=== PATIENT | female | born 1940 | race Caucasian/White ===

== ENCOUNTER 2019-07-25 09:49 | Emergency (ER) | payer MEDICARE, SELFPAY ==
[2019-07-25] VITALS (25 sets, daily range): BP systolic 160–185; BP diastolic 68–99; PULSE 60–74; RESP 9–22; TEMP 36.5; O2SAT 96–100
--- NOTE | ~2019-07-25 | CT_ITS ---
EXAMINATION: CT chest wo con EXAM DATE: 07/25/2019 13:55 INDICATION: Lung mass. TECHNIQUE: Spiral CT of the chest without contrast. Axial, coronal and sagittal images were reviewe d. Coronal maximum intensity pixel images of chest reviewed. The dose-length product (DLP) for this examination was 169.19 mGy-cm. The exposure was tailored according to patient size (auto mA exposur e control), and iterative reconstruction (ASIR) was used as additional dose reduction technique. Comp bakari is made to prior examination from 02/13/2010. FINDINGS: There is lobular masslike opacity in the right lower lobe measuring 2.1 cm, possible prima ry lung cancer. There are scattered other smaller nodules, mostly calcified, consistent with prior gr anulomatous process. There is biapical scarring. There is mild emphysema and hyperinflation. Prior st udy in 2009 had a nodule which decreased in size and now has calcification, turned into a granuloma. It is possible that the right lower lobe mass described above could be chronic infectious or inflamma tory process of same etiology that cause the other pulmonary nodules. Differential diagnosis does inc lude pneumonia, cancer, post infectious residua, inflammatory process, cryptogenic organizing pneumon ia. There are no pleural or pericardial effusions. Tracheobronchial tree is patent. There is no media stinal, hilar or axillary lymphadenopathy. There is no pneumothorax. Heart normal in size. Ther e is mild coronary arterial calcification, arterial sclerosis. Upper abdomen is unremarkable. Ther e is mild to moderate thoracic spondylosis without osteoblastic or osteolytic lesions identified. IMPRESSION: 1. Right lower lobe 2.1 cm lobular nodular density, differential diagnosis including cancer, infecti on, early postinfectious granulation, cryptogenic organizing pneumonia, other inflammatory process. 2. Scattered lung granulomas, including evolution of a previously seen opacity similar to suspicious finding on today's exam to more typical appearing granuloma. 3. Mild emphysema and hyperinflation. RECOMMENDATION: Clinical correlation. Although the nodule described above could be infectious/inflamm atory etiology, it is large enough to consider percutaneous biopsy. Alternatively, could obtain a PET CT, or a one-month follow-up low-dose chest CT if patient has no lung cancer risk factors or infecti on clinically. Reviewed, dictated and finalized at location B. IMPRESSION: 1. Right lower lobe 2.1 cm lobular nodular density, differential diagnosis inc luding cancer, infection, early postinfectious granulation, cryptogenic organiz ing pneumonia, other inflammatory process. 2. Scattered lung granulomas, including evolution of a previously seen opacity similar to suspicious finding on today's exam to more typical appearing granul ferny. 3. Mild emphysema and hyperinflation. RECOMMENDATION: Clinical correlation. Although the nodule described above could be infectious/inflammatory etiology, it is large enough to consider percutaneo us biopsy. Alternatively, could obtain a PET CT, or a one-month follow-up low-d ose chest CT if patient has no lung cancer risk factors or infection clinically .
--- NOTE | ~2019-07-25 | CT_ITS ---
EXAMINATION: CT abdomen pelvis w con DATE: 07/25/2019 12:35 INDICATION: Diarrhea. Weight loss. TECHNIQUE: Computed tomography (CT) of the abdomen and pelvis was performed with 100 mL Omnipaque 350 intravenous contrast. Automated exposure control and iterative reconstruction technique were employe d. The dose-length product was 527.78 mGy-cm. COMPARISON: Chest CT 03/12/2010, pelvis ultrasound 01/21/16 FINDINGS: The visualized portions of the lung bases demonstrate mild atelectasis. Partially visualize d is a 3.2 x 2.2 cm mass in right lower lobe. There is mild atelectasis bilaterally. No pleural effus ion. The heart size is normal. No pericardial effusion. The liver, spleen, gallbladder, pancreas, and adrenal glands are normal. There are cysts in the kidneys measuring up to 2.2 cm on the left. There is a filter in the infrarenal inferior vena cava. There is a left inguinal hernia containing fat. The re are no dilated loops of bowel. The appendix is normal. There are no pathologically enlarged lymph nodes. There is no free intraperitoneal fluid. There is a small umbilical hernia containing fat. The endometrial complex is thickened to 18 mm. There are old healed right rib fractures. There is moderat e lumbar spondylosis. There is a benign bone island in L3 vertebral body. IMPRESSION: 1. Partially visualized 3.2 x 2.2 cm mass in right lung lower lobe, which may be infection or maligna ncy. Chest CT is recommended. 2. Thickened endometrial complex, which may be endometrial hyperplasia, polyp, or carcinoma. Biopsy i s recommended. Reviewed, dictated and finalized at location A. IMPRESSION: 1. Partially visualized 3.2 x 2.2 cm mass in right lung lower lobe, which may b e infection or malignancy. Chest CT is recommended. 2. Thickened endometrial complex, which may be endometrial hyperplasia, polyp, or carcinoma. Biopsy is recommended.
--- NOTE | 2019-07-25 09:55 | ED.NAVMDI ---
HPI - Nausea/Vomiting/Diarrhea General Chief complaint: Nausea/Vomiting/Diarrhea Stated complaint: N/V X3 WEEKS, LOST 20 POUNDS Time Seen by Provider: 07/25/19 09:51 History of Present Illness HPI Narrative: Nausea and vomiting for the past month. Only able to keep down a few sips of water at a time, and 1 egg per day. She says that she was having diarrhea until recently. She reports that she frequently has blood in her stools. She was previously on eliquis, but stopped due to the bleeding. She called her PCP today and was prescribed zofran. She did not take the zofran prior to coming in. She seems to be a somewhat unreliable historian. Related Data Home Medications Medication Instructions Recorded Confirmed rivaroxaban [Xarelto] mg 07/25/19 Allergies Allergy/AdvReac Type Severity Reaction Status Date / Time No Known Allergies Allergy Unverified 09/04/15 15:26 Review of Systems Review of Systems: All systems reviewed & are unremarkable except as noted in HPI and below Constitutional: Constitutional: Reports fatigue, Denies fever(s) and Reports weakness ENT: Denies sore throat Cardiovascular: Cardiovascular: Denies chest pain Respiratory: Respiratory: Denies dyspnea Gastrointestinal: Gastrointestinal: Denies abdominal pain, Reports diarrhea, Reports nausea and Reports vomiting Genitourinary: Genitourinary: Reports no additional female genitourinary complaints, Denies hematuria, Denies dysuria and Denies flank pain Musculoskeletal: Musculoskeletal: Denies back pain Neurologic: Reports dizziness, Denies focal weakness and Reports weakness PMFSH Past Medical History Medical History (Updated 07/25/19 @ 14:55 by Clifton Suazo MD) DVT (deep venous thrombosis) Social History Social History (Updated 07/25/19 @ 14:49 by Clifton Suazo MD) Smoking status: Never smoker Exam Const: General: healthy appearing, no acute distress and alert Orientation/consciousness: patient oriented x3 HENMT: Mouth: Yes dry mucous membranes Resp: Effort & Inspection: normal respiratory effort Auscultation: clear to auscultation bilaterally Cardio: Rate: regular rate Rhythm: regular rhythm GI: GI Palp: Yes Soft to palpation and No Tenderness to palpation present (GI) Skin: General skin exam: normal color and no pallor Rashes: rash noted Wounds: wound noted Neuro: General: patient oriented x3, moves all extremities, no focal motor deficits and CN's II-XI intact bilaterally Cranial nerves: Yes Nystagmus not present Speech: normal speech Extrem: General: normal to inspection and no edema Psych: Affect: Anxious affect present Course Course Emergency Course: Patient dicussed with Dr. Sanders. She reports the the patient is somewhat eccentric and believes that this may be the only chance to evaluate her as she only rarely comes to the office and is unlikely to get outpatient testing done. She would appreciate imaging due to the 20 pound weight loss over the past [address] of chest and abdomen done showing lesions of the uterus and lungs that will need follow-up. Dr. Sanders will arrange this. Patient informed Vital Signs Vital signs: Vital Signs Temperature 36.5 C 07/25/19 09:54 Pulse Rate 71 07/25/19 09:54 Respiratory Rate 18 07/25/19 09:54 Blood Pressure 160/89 H 07/25/19 09:54 Pulse Oximetry 100 07/25/19 09:54 Temperature 36.5 C 07/25/19 09:54 Pulse Rate 60 07/25/19 13:32 Respiratory Rate 13 07/25/19 13:32 Blood Pressure 166/69 H 07/25/19 13:01 Pulse Oximetry 100 07/25/19 11:31 MDM - Nausea/Vomiting/Diarrhea MDM Narrative Medical decision making narrative: UA abnormal. Not consistent with infection. PATENT AGENT can follow-up on culture. Differential Diagnosis Differential diagnosis: Likely gastroenteritis, clostridium difficile infection, dehydration and other (anemia, Gi bleed, pneumonia, UTI, ) Medical Records Attestation: I reviewed the patient's medical recor
[2019-07-25 10:21] LABS: Basophils Percent Auto 0.4 % (0.2-1.2); Eosinophils Percent Auto 0.5 % (0-4.4); Hematocrit 44.2 % (37.0-47.0); Hemoglobin 14.1 g/dL (12.0-15.0); Immature Granulocyte Absolute 0.03 K/mm3 (0.00-0.031); Immature Granulocyte Percent A 0.4 % (0-0.5); Immature Platelet Fraction Pct 15.9 % (0.9-11.2); Lymphocytes Absolute Auto 1.16 K/mm3 (0.9-3.2); Lymphocytes Percent Auto 15.8 % (18.3-44.2); Mean Corpuscular HGB Conc 31.9 g/dl (32-36); Mean Corpuscular Hemoglobin 30.3 pg (26-34); Mean Corpuscular Volume 95.1 fl (80-100); Mean Platelet Volume 13.8 fl (7.4-10.4); Monocytes Absolute Auto 0.5 K/mm3 (0.1-0.6); Monocytes Percent Auto 7.2 % (2.6-8.5); Neutrophils Absolute Auto 5.5 K/mm3 (1.3-6.7); Neutrophils Percent Auto 75.7 % (45.5-73.1); Platelet Count Result 164 k/mm3 (150-375); Red Blood Count 4.65 M/mm3 (4.2-5.4); Red Cell Distribution Width 14.1 % (11.5-14.5); White Blood Count 7.3 K/mm3 (4.5-10.0)
[2019-07-25] MEDS: ONDANSETRON INJ 4 MG/2 ML VIAL IV PUSH (10:21)
[2019-07-25] MEDS: SODIUM CHLORIDE 0.9% IV 500 ML 999 ML IV CONT (10:21)
[2019-07-25 10:27] LABS: Add Urine Microscopic? YES; Appearance Urine Clear (Clear); Bilirubin Urine 1+ (Negative); Blood Urine 3+ (Negative); Color Urine Amber (Yellow); Glucose Urine UA Negative (Negative); Hyaline Casts Urine 20-29 /lpf; Ketones Urine 1+ mg/dL (Negative); Leukocyte Esterase Ur Negative LEU/UL (Negative); Mucus Urine Heavy /lpf; Nitrate Urine Negative (Negative); Protein Urine 2+ mg/dL (Negative); RBC Urine 21-50 /hpf (0-2); Specific Grav Ur 1.027 (1.001-1.035); Squamous Epithelial Cell Urine Rare /hpf (Few)
[2019-07-25 10:30] LABS: Alanine Aminotransferase 51 U/L (4-35); Albumin Level 4.2 g/dL (3.5-5.1); Alkaline Phosphatase 61 U/L (38-126); Aspartate Amino Transferase 56 U/L (14-36); Blood Urea Nitrogen 18 mg/dL (7-17); Calcium 9.5 mg/dL (8.4-10.2); Carbon Dioxide 27 mmol/L (22-30); Chloride 104 mmol/L (98-107); Estimated CRCL calculation 61 ml/min; Estimated Glomerular Filt Rate > 60; Glucose 94 mg/dL (65-105); Lipase 30 U/L (23-300); Potassium 3.5 mmol/L (3.4-5.0); Sodium 138 mmol/L (137-145)
[2019-07-25 11:09] LABS: INR 1.1; Partial Thromboplastin Time 23.5 SECONDS (22.3-36.8); Prothrombin Time 13.4 Seconds (11.1-14.7)
--- NOTE | 2019-07-25 14:48 | PC.NURSE ---
crackers and lemon sioux soda offered for po challenge
== END 2019-07-25 16:12 | disposition home or self-care (01) ==
PROVIDERS: Emergency Provider Emergency Medicine; PCP Family Medicine
DX: R11.2 Nausea with vomiting, unspecified (principal); Z79.01 Long term (current) use of anticoagulants; R93.89 Abnormal findings on diagnostic imaging of other specified body structures; Z86.718 Personal history of other venous thrombosis and embolism; R91.8 Other nonspecific abnormal finding of lung field; R82.998 Other abnormal findings in urine
CPT/HCPCS: 36415; 51701; 71250; 74177; 80053; 81001; 83690; 85025; 85055; 85610; 85730; 86850; 86900; 86901; 87086; 96361; 96374; 99284; J2405; J7040; Q9967

== ENCOUNTER 2019-08-03 13:27 | Emergency (ER) | payer MEDICARE, SELFPAY ==
[2019-08-03] VITALS (11 sets, daily range): BP systolic 114–177; BP diastolic 64–83; PULSE 68–85; RESP 12–19; TEMP 37.1; O2SAT 97–100
--- NOTE | ~2019-08-03 | XR_ITS ---
XR chest 1V DATE: 08/03/2019 14:39 INDICATION: Weakness TECHNIQUE: AP chest on 08/03/2019 at 1437 hours COMPARISON: 07/25/2019 CT chest FINDINGS: Ill-defined density is again noted overlying the lateral right lower lung; the vertebral diagnosis in cludes focal infiltrate, scarring or pulmonary malignancy. There are scattered calcified pulmonary granulomas consistent with old granulomatous disease. Otherwise no pulmonary infiltrate or consolidation, pleural effusion or pulmonary vascular congestion or pneumothorax is evident. Heart size appears within normal range. No hilar or mediastinal enlargement. Incidentally noted is an IVC filter overlying the abdomen. IMPRESSION: Indeterminate opacity in the lateral right lower lung; diffusion diagnosis given above Old pulmonary granulomatous disease Reviewed, dictated and finalized at location A. IMPRESSION: Indeterminate opacity in the lateral right lower lung; diffusion di agnosis given above Old pulmonary granulomatous disease
--- NOTE | ~2019-08-03 | CT_ITS ---
EXAMINATION: CT brain wo con DATE: 08/03/2019 14:37 INDICATION: Weakness TECHNIQUE: Computed tomography (CT) of the head was performed without intravenous contrast. Sagittal and coronal reconstructions were performed. The mA was adjusted according to patient size. Iterative reconstruction technique was employed. The dose-length product was 605.33 mGy-cm. COMPARISON: head CT dated 02/01/2010 FINDINGS: No acute intracranial hemorrhage or acute infarction. Interval development of hydrocephalus with dila tion of the third and left and right lateral ventricles. Decreased attenuation of the periventricular white matter consistent with secondary transependymal flow. There is vasogenic edema throughout the right cerebellar hemisphere with local mass effect result in effacement of the left ambient cistern a nd slight leftward shift of the ravinder, normal sized fourth ventricle and cerebellar vermis. No clearly defined mass identified although evaluation is limited in the absence of intravenous contrast. Promi nent mucosal thickeningin the left maxillary sinus. Less severe mucosal thickening throughout the rem ainder of the paranasal sinuses. Changes of bilateral intraocular lens replacement. The orbits and ma stoid air cells are normal. IMPRESSION: 1. Obstructing hydrocephalus which appears related to edema with swelling of the right cerebellar hem isphere. Edema pattern suggests vasogenic edema concerning for underlying malignancy differential wou ld include edema related to acute infarct. Recommend urgent neurosurgical consultation to address the hydrocephalus. MRI with contrast would also be recommended when clinically appropriate to more defin itively assess for the underlying etiology for the right cerebellar edema/enlargement. Dr. Roosevelt joshi iscussed these findings with Dr. Campo at 2:45 PM. Reviewed, dictated and finalized at location A. IMPRESSION: 1. Obstructing hydrocephalus which appears related to edema with swelling of th e right cerebellar hemisphere. Edema pattern suggests vasogenic edema concernin g for underlying malignancy differential would include edema related to acute i nfarct. Recommend urgent neurosurgical consultation to address the hydrocephalu s. MRI with contrast would also be recommended when clinically appropriate to m ore definitively assess for the underlying etiology for the right cerebellar ed carissa/enlargement. Dr. Albert discussed these findings with Dr. Campo at 2:45 PM.
--- NOTE | 2019-08-03 14:11 | ECG_ITS ---
Measurements Intervals David Rate: 70 P: 56 KS: 340 QRS: -10 QRSD: 87 T: 9 QT: 366 QTc: 395 Interpretive Statements SINUS RHYTHM WITH FIRST DEGREE AV BLOCK BASELINE ARTIFACT- I, III, AVL ABNORMAL ECG Electronically Signed On 08-03-2019 14:49:23 CDT by Ernie Stoll D.O.
--- NOTE | 2019-08-03 14:11 | ED.GENADULT ---
HPI - General Adult General Chief complaint: Weakness Stated complaint: can't stand Time Seen by Provider: 08/03/19 13:31 Source: patient and EMS Mode of arrival: EMS Limitations: no limitations History of Present Illness HPI narrative: Patient is a 78-year-old female with a history of DVT/PE who presents for evaluation of weakness. Patient reportedly has been increasing weakness over the past 2 months, the past 3 days has been particularly severe patient has been unable to ambulate without falling. Patient has been found on the ground twice by her as she has tried to walk with use of her walker and has been unable to support herself. Patient denies any head, chest or abdominal pain. No extremity injury no loss of consciousness or neck pain. Patient previously had been on Xarelto for large saddle embolism from 2016 where she was treated at [facility], but patient developed vaginal bleeding 2 weeks ago and discontinued her Xarelto. Patient denies any numbness, only weakness. No cough, fever, dysuria or hematuria. Patient reports nausea with several episodes of nonbloody, nonbilious emesis today. Related Data Allergies Allergy/AdvReac Type Severity Reaction Status Date / Time No Known Allergies Allergy Verified 08/03/19 13:38 Review of Systems Review of Systems: Narrative: CONSTITUTIONAL: Denies fever, chills, or sweats. EYES: Denies visual changes, redness, or discharge. ENT: Denies rhinorrhea, congestion, sore throat, or otalgia. CARDIOVASCULAR: Denies chest pain, palpitations, or edema. RESPIRATORY: Denies cough or dyspnea. GASTROINTESTINAL: Denies abdominal pain, nausea, vomiting, or diarrhea. GENITOURINARY: Denies dysuria or hematuria. SKIN: Denies rash or itching. MUSCULOSKELETAL: Denies back pain, joint pain, or myalgia. NEUROLOGIC: Denies headache, numbness, reports weakness PMFSH Past Medical History Medical History DVT (deep venous thrombosis) Social History Social History Smoking status: Never smoker Gender identity (if verbalized by the patient): Female Exam Narrative: Exam Narrative: GENERAL: Awake, alert, conversant HEAD: Normocephalic, atraumatic. EYES: PERRLA and EOMI. ENT: Nares clear, no rhinorrhea or epistaxis. Mucous membranes dry. NECK: Supple. CHEST: No respiratory distress, breathing even and non labored HEART: Regular rate, sinus rhythm ABDOMEN:Non distended, non tender EXTREMITIES: Normal range of motion. No edema. SKIN: Warm, dry, no rash. NEURO:No focal deficits. Alert and oriented x3. Finger to nose intact bilaterally. EOMs intact without nystagmus. No facial droop/asymmetry noted bilaterally. Grimace intact. Intact sensation in face. Hearing intact bilaterally. Shoulder shrug intact. Strength 5/5 bilateral upper extremities. Strength 3/5 bilateral lower extremities, patient cannot raise legs against gravity. Hyporeflexic bilaterally, patella. Cannot complete heel to ortega. Ambulation deferred. Course Course Emergency Course: Patient presented to emergency department for evaluation of frequent falls, headache and weakness. At the time of initial assessment, patient is noted to have bilateral lower extremity weakness, poor effort against gravity although sensation is intact. No facial droop, dysarthria. Laboratory results notable for mild hypokalemia. Otherwise, patient is EKG without acute ischemic changes. CT head is very concerning for brain mass with development of hydrocephalus which appears obstructive in nature. Patient does have some edema present, but has no decompensating GCS or mentation at this point. On chest x-ray, patient has a stable lung mass, patient did tell me she had knowledge of this. Perhaps this is a primary lung cancer with metastatic brain mass. Given need for neurosurgical intervention, I spoke with the patient and her family, th
[2019-08-03] MEDS: SODIUM CHLORIDE 0.9% IV 500 ML 999 ML IV CONT (14:30)
--- NOTE | 2019-08-03 14:41 | PC.NURSE ---
Assumed care of pt, pt currently in CT scan. Spouse at bedside and updated.
[2019-08-03 14:48] LABS: Basophils Percent Auto 0.3 % (0.2-1.2); Hematocrit 43.6 % (37.0-47.0); Hemoglobin 14.2 g/dL (12.0-15.0); Immature Granulocyte Absolute 0.04 K/mm3 (0.00-0.031); Immature Granulocyte Percent A 0.4 % (0-0.5); Immature Platelet Fraction Pct 16.8 % (0.9-11.2); Lymphocytes Percent Auto 13.1 % (18.3-44.2); Mean Corpuscular HGB Conc 32.6 g/dl (32-36); Mean Corpuscular Hemoglobin 30.6 pg (26-34); Mean Platelet Volume 13.8 fl (7.4-10.4); Monocytes Absolute Auto 0.6 K/mm3 (0.1-0.6); Monocytes Percent Auto 6.4 % (2.6-8.5); Neutrophils Absolute Auto 7.9 K/mm3 (1.3-6.7); Neutrophils Percent Auto 79.8 % (45.5-73.1); Platelet Count Result 146 k/mm3 (150-375); Red Blood Count 4.64 M/mm3 (4.2-5.4); White Blood Count 9.9 K/mm3 (4.5-10.0)
[2019-08-03] MEDS: ONDANSETRON INJ 4 MG/2 ML VIAL IV PUSH (14:58)
[2019-08-03] MEDS: SODIUM CHLORIDE 0.9% IV 1,000 ML 999 ML IV CONT (14:59)
[2019-08-03 15:01] LABS: Alanine Aminotransferase 31 U/L (4-35); Alkaline Phosphatase 62 U/L (38-126); Aspartate Amino Transferase 28 U/L (14-36); Bilirubin,Total 1.2 mg/dL (0.2-1.3); Blood Urea Nitrogen 16 mg/dL (7-17); Carbon Dioxide 29 mmol/L (22-30); Chloride 101 mmol/L (98-107); Estimated CRCL calculation 73 ml/min; Estimated Glomerular Filt Rate > 60; Glucose 108 mg/dL (65-105); Potassium 3.1 mmol/L (3.4-5.0); Sodium 140 mmol/L (137-145)
[2019-08-03 15:10] LABS: Troponin I < 0.012 ng/mL (0.000-0.034)
[2019-08-03 15:43] LABS: Add Urine Microscopic? YES; Appearance Urine Clear (Clear); Bilirubin Urine Negative (Negative); Blood Urine 3+ (Negative); Color Urine Amber (Yellow); Glucose Urine UA Negative (Negative); Ketones Urine 1+ mg/dL (Negative); Leukocyte Esterase Ur Negative LEU/UL (Negative); Mucus Urine Heavy /lpf; Nitrate Urine Negative (Negative); Protein Urine 2+ mg/dL (Negative); RBC Urine 21-50 /hpf (0-2); Specific Grav Ur 1.025 (1.001-1.035); Squamous Epithelial Cell Urine Rare /hpf (Few)
--- NOTE | 2019-08-03 16:11 | PC.NURSE ---
Constanza called with bed no. [id number], called report to [phone] O[facility]LE[facility] at [facility]. Pt and pt spouse updated on status.
[2019-08-03 16:28] LABS: INR 1.1; Prothrombin Time 13.8 Seconds (11.1-14.7)
[2019-08-03] MEDS: POTASSIUM CHLORIDE 20 MEQ PACKET (FOR LIQUID) 40 MEQ PO (18:14)
== END 2019-08-03 18:39 | disposition short-term general hospital (02) ==
PROVIDERS: Emergency Provider Emergency Medicine; PCP Family Medicine
DX: G93.9 Disorder of brain, unspecified (principal); G91.9 Hydrocephalus, unspecified; R53.1 Weakness; Z86.711 Personal history of pulmonary embolism; Z86.718 Personal history of other venous thrombosis and embolism; I44.0 Atrioventricular block, first degree; R91.8 Other nonspecific abnormal finding of lung field
CPT/HCPCS: 36415; 51701; 70450; 71045; 80053; 81001; 84484; 85025; 85055; 85610; 85730; 87086; 93005; 96361; 96374; 99284; 99285; A9270; J2405; J7030; J7040

== ENCOUNTER 2019-10-08 19:43 | Day surgery (SDC) | payer MEDICARE, SELFPAY ==
[2019-10-08] VITALS (9 sets, daily range): BP systolic 119–197; BP diastolic 64–90; PULSE 67–99; RESP 14–20; TEMP 36.8–37.3; O2SAT 92–98
--- NOTE | ~2019-10-08 | XR_ITS ---
EXAMINATION: XR chest 1V portable INDICATION: Dysphagia and shortness of breath TECHNIQUE: Portable AP chest at 2028 hours COMPARISON: 08/03/2019 FINDINGS: There is an unchanged 2.2 cm nodule of the right lung base which has been previously evalua cathy and remains concerning for malignancy. A 9 mm nodule projecting in the right lung base demonstrat e rim calcification on recent CT, likely old granulomatous disease. The lungs are free of acute opaci ties. There is no pleural effusion or pneumothorax. The cardiomediastinal silhouette is normal. IMPRESSION: 1. No acute cardiopulmonary abnormality. 2. Unchanged right lower lobe nodule concerning for malignancy. Reviewed, dictated and finalized at location A.
--- NOTE | 2019-10-08 20:16 | ED.GENADULT ---
HPI - General Adult General Chief complaint: Unspecified Stated complaint: food bolus in throat Time Seen by Provider: 10/08/19 20:12 Source: RN notes reviewed History of Present Illness HPI narrative: Patient presents emergency department from home for food bolus. Patient states approximately 1 hour ago she was eating a roast when he became lodged in her throat. She states she is been able to swallow since that time including unable to tolerate her own secretions. She denies any previous history of food impaction but states she does have a difficulty swallowing pills she denies any fevers or chills chest pain abdominal pain nausea vomiting or any other symptoms Related Data Allergies Allergy/AdvReac Type Severity Reaction Status Date / Time No Known Allergies Allergy Verified 10/08/19 19:48 Review of Systems Review of Systems: Narrative: Gen.: Denies fevers or chills ENT: Denies congestion Respiratory: Denies shortness of breath or cough CV: Denies chest pain or palpitations GI: See HPI Musculoskeletal: Denies back pain or muscle pain Neuro: Denies numbness, tingling, weakness or focal weakness Skin: Denies rash Except as documented, all other systems reviewed and negative [facility] Past Medical History Medical History DVT (deep venous thrombosis) First degree AV block Social History Social History Smoking status: Never smoker Gender identity (if verbalized by the patient): Female Exam Narrative: Exam Narrative: APPEARANCE: No acute distress, nontoxic, resting in bed EYES: EOMI HEENT: Normocephalic, atraumatic, OMM, airway patent, unable to tolerate own secretions RESPIRATORY: No respiratory distress Clear to auscultation bilaterally with no rhonchi wheezing or rales. CARDIOVASCULAR: Regular rate and rhythm without murmurs rubs or gallops. ABDOMINAL: Soft, nontender, nondistended, no rebound or guarding MUSCULOSKELETAl: Moves all extremities. NEURO: Awake and alert. Following commands, speech normal, no focal deficits SKIN:: Warm, dry. No rashes lesions or abrasions PSYCHIATRIC: Normal affect/mood, Course Course Emergency Course: Called and discussed with Dr. Tsai presentation work-up. We will plan to take patient to the GI lab [facility] [address] Dr Tsai in the emergency department to evaluate patient Discussed with patient plan for GI Lab in agreement at this time Vital Signs Vital signs: Vital Signs Temperature 98.2 F 10/08/19 19:45 Pulse Rate 99 10/08/19 19:45 Respiratory Rate 18 10/08/19 19:45 Blood Pressure 158/90 H 10/08/19 19:45 Pulse Oximetry 97 10/08/19 19:45 Temperature 98.2 F 10/08/19 19:45 Pulse Rate 91 10/08/19 21:16 Respiratory Rate 20 10/08/19 21:16 Blood Pressure 180/86 H 10/08/19 21:16 Pulse Oximetry 95 10/08/19 21:16 Medical Decision Making Vital Signs Vital Signs: Vital Signs Temperature 98.2 F 10/08/19 19:45 Pulse Rate 99 10/08/19 19:45 Respiratory Rate 18 10/08/19 19:45 Blood Pressure 158/90 H 10/08/19 19:45 Pulse Oximetry 97 10/08/19 19:45 Temperature 98.2 F 10/08/19 19:45 Pulse Rate 91 10/08/19 21:16 Respiratory Rate 20 10/08/19 21:16 Blood Pressure 180/86 H 10/08/19 21:16 Pulse Oximetry 95 10/08/19 21:16 Lab Data Result diagrams: 10/08/19 20:33 10/08/19 20:33 Labs: Lab Results 10/08/19 10/08/19 10/08/19 Range/Units 20:33 20:33 20:33 WBC 7.5 (4.5-10.0) K/mm3 RBC 4.17 L (4.2-5.4) M/mm3 Hgb 13.2 (12.0-15.0) g/dL Hct 40.7 (37.0-47.0) % MCV 97.6 (80-100) fl MCH 31.7 (26-34) pg MCHC 32.4 (32-36) g/dl RDW 16.4 H (11.5-14.5) % Plt Count 206 (150-375) k/mm3 MPV 13.4 H (7.4-10.4) fl Immature Gran % (Auto) 0.3 (0-0.5) % Neut % (Auto) 74.9 H (45.5-73.1) % Lymph % (Auto) 15.1 L (18.3-44.2) % Mcdowell % (
[2019-10-08] MEDS: GLUCAGON FOR INJ 1 MG VIAL IV CONT (20:22)
[2019-10-08 20:44] LABS: Basophils Percent Auto 0.5 % (0.2-1.2); Eosinophils Absolute Auto 0.2 K/mm3 (0-0.3); Eosinophils Percent Auto 2.1 % (0-4.4); Hematocrit 40.7 % (37.0-47.0); Hemoglobin 13.2 g/dL (12.0-15.0); Immature Granulocyte Absolute 0.02 K/mm3 (0.00-0.031); Immature Granulocyte Percent A 0.3 % (0-0.5); Immature Platelet Fraction Pct 9.1 % (0.9-11.2); Lymphocytes Absolute Auto 1.13 K/mm3 (0.9-3.2); Lymphocytes Percent Auto 15.1 % (18.3-44.2); Mean Corpuscular HGB Conc 32.4 g/dl (32-36); Mean Corpuscular Hemoglobin 31.7 pg (26-34); Mean Corpuscular Volume 97.6 fl (80-100); Mean Platelet Volume 13.4 fl (7.4-10.4); Monocytes Absolute Auto 0.5 K/mm3 (0.1-0.6); Monocytes Percent Auto 7.1 % (2.6-8.5); Neutrophils Absolute Auto 5.6 K/mm3 (1.3-6.7); Neutrophils Percent Auto 74.9 % (45.5-73.1); Platelet Count Result 206 k/mm3 (150-375); Red Blood Count 4.17 M/mm3 (4.2-5.4); Red Cell Distribution Width 16.4 % (11.5-14.5); White Blood Count 7.5 K/mm3 (4.5-10.0)
[2019-10-08 20:50] LABS: INR 1.4; Prothrombin Time 16.9 Seconds (11.1-14.7)
[2019-10-08 20:51] LABS: Partial Thromboplastin Time 29.7 SECONDS (22.3-36.8)
[2019-10-08 20:52] LABS: Blood Urea Nitrogen 21 mg/dL (7-17); Calcium 9.5 mg/dL (8.4-10.2); Carbon Dioxide 27 mmol/L (22-30); Chloride 105 mmol/L (98-107); Estimated Glomerular Filt Rate > 60; Glucose 114 mg/dL (65-105); Sodium 138 mmol/L (137-145)
--- NOTE | 2019-10-08 20:57 | WPDANESEPPF ---
Anes - Initial Pre Proc Eval Date/Time: 10/08/19 20:57 Pre Op Diagnosis: food bolus in throat Patient Data Age: 79 Gender: F Height: Weight: 79.3 kg Last Vital Signs Temp 36.8 C 10/08/19 19:45 Pulse 99 10/08/19 19:45 Resp 18 10/08/19 19:45 BP 158/90 H 10/08/19 19:45 Pulse Ox 97 10/08/19 19:45 Allergies Allergy/AdvReac Type Severity Reaction Status Date / Time No Known Allergies Allergy Verified 10/08/19 19:48 Home Medications Medication Instructions Recorded Confirmed Type ondansetron HCl [Zofran] 4 mg PO Q6H PRN #10 tablet 07/25/19 Rx Laboratory Tests 10/08/19 10/08/19 10/08/19 20:33 20:33 20:33 WBC 7.5 K/mm3 K/mm3 (4.5-10.0) RBC 4.17 M/mm3 L M/mm3 (4.2-5.4) Hgb 13.2 g/dL g/dL (12.0-15.0) Hct 40.7 % % (37.0-47.0) MCV 97.6 fl fl (80-100) MCH 31.7 pg pg (26-34) MCHC 32.4 g/dl g/dl (32-36) RDW 16.4 % H % (11.5-14.5) Plt Count 206 k/mm3 k/mm3 (150-375) MPV 13.4 fl H fl (7.4-10.4) Immature Gran % (Auto) 0.3 % % (0-0.5) Neut % (Auto) 74.9 % H % (45.5-73.1) Lymph % (Auto) 15.1 % L % (18.3-44.2) [place] % (Auto) 7.1 % % (2.6-8.5) Eos % (Auto) 2.1 % % (0-4.4) Baso % (Auto) 0.5 % % (0.2-1.2) Lymph # (Auto) 1.13 K/mm3 K/mm3 (0.9-3.2) [place] # (Auto) 0.5 K/mm3 K/mm3 (0.1-0.6) Eos # (Auto) 0.2 K/mm3 K/mm3 (0-0.3) Baso # (Auto) 0.0 K/mm3 K/mm3 (0.0-0.1) Abs Immat Gran (auto) 0.02 K/mm3 K/mm3 (0.00-0.031) Absolute Neuts (auto) 5.6 K/mm3 K/mm3 (1.3-6.7) Absolute Nucleated RBC 0.0 K/mm3 K/mm3 (0.0-0.012) Nucleated RBC % 0.0 % % (0.0-0.2) % Immature Plt Fraction 9.1 % % (0.9-11.2) PT 16.9 Seconds H Seconds (11.1-14.7) INR 1.4 APTT 29.7 SECONDS SECONDS (22.3-36.8) Sodium 138 mmol/L mmol/L (137-145) Potassium 4.0 mmol/L mmol/L (3.4-5.0) Chloride 105 mmol/L mmol/L (98-107) Carbon Dioxide 27 mmol/L mmol/L (22-30) BUN 21 mg/dL H mg/dL (7-17) Creatinine 0.70 mg/dL mg/dL (0.7-1.0) Estim Creat Clear Calc Not Reportable Estimated GFR > 60 (59 - ) Glucose 114 mg/dL H mg/dL (65-105) Calcium 9.5 mg/dL mg/dL (8.4-10.2) Patient hx anesthesia problems: none Family hx anesthesia problems: none [facility] Past Medical History Medical History (Updated 10/08/19 @ 21:46 by Fransisco Stoddard DO) Brain tumor DVT (deep venous thrombosis) First degree AV block Lung mass Social History Social History Smoking status: Never smoker Gender identity (if verbalized by the patient): Female Anes - Eval Final PreProcedure Day of Procedure 10/08/19 20:57 Patient weight: overweight Heart: regular rate and rhythm Lungs: clear to auscultation and normal air movement Airway: Mallampati scale class II Neurological: alert and oriented Last oral intake: 2 hours (1900 food impaction) ASA classification: III Emergent: yes Anesthetic plan: proceed Anesthesia type and monitoring: general and standard monitoring Informed Consent: The patient's anesthetic plan and its attendant risks and benefits were discussed with the patient/family/POA. Questions were solicited and answers provided to the satisfaction of the patient/family/POA.
[2019-10-08] MEDS: LACTATED RINGERS 1,000 ML 150 ML IV CONT (21:19)
--- NOTE | 2019-10-08 21:32 | WPDGICN ---
Assessment and Plan Assessment and plan (1) Food impaction of esophagus: Code(s): T18.128A - Food in esophagus causing other injury, initial encounter Status: Acute Assessment and Plan: Patient unable to eat or swallow since eating roast beef. Plan is for EGD disimpact what appears to be a food impaction. We will also evaluate for possible narrowing of the esophagus. Because of her anticoagulation it may be difficult to dilate this at this time. Further recommendations will be given after endoscopy and food disimpaction. (2) Dysphagia: Code(s): R13.10 - Dysphagia, unspecified Status: Acute Assessment and Plan: Patient reports a lifelong history of difficulty swallowing large pills. This will be evaluated time of endoscopy. (3) DVT (deep venous thrombosis): Code(s): I82.409 - Acute embolism and thrombosis of unspecified deep veins of unspecified lower extremity Status: Acute Assessment and Plan: Patient has recurrent DVTs with swollen lower extremities. This is necessitated anti empiric appears to be a can't genital predisposition to clotting. Previous workup not available at this time. (4) Anticoagulation adequate: Code(s): Z79.01 - halfway (current) use of anticoagulants Status: Acute (5) Brain tumor: Code(s): D49.6 - Neoplasm of unspecified behavior of brain Status: Acute Assessment and Plan: Patient has recent history of a brain tumor being identified treated in [place] with radiation therapy workup details not immediately available. Patient ultimately follow-up with neurological service. (6) Lung mass: Code(s): R91.8 - Other nonspecific abnormal finding of lung field Status: Acute Assessment and Plan: Identified by CT scans 2 months ago suspected is related to her brain tumor but workup not immediately available follow-up scans at some point advised if not done previously. GI Consult Note Consult date/time: 10/08/19 21:32 HPI: Yanna Grey is a 79 year old female seen in evaluation at the request of the emergency room. Patient in usual state of health till this evening at 6:00 a.m. was eating roast beef. She subsequently was unable to eat or swallow. She feels as though the food is caught in her chest. She points to her throat when asked where she feels it caught. She subsequently has been at unable to eat or swallow even saliva over the last several hours. She states she has had difficulty swallowing large pills throughout her whole life. With no recent change. She denies any heartburn. She denies any weight loss. She currently is very uncomfortable but able to breathe adequately. 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 Patient reports 2 months ago in July of 2019 she was identified as having a brain tumor she was referred to [place] where she has undergone radiation therapy. Histologic diagnosis of this is not immediately available. Patient also was identified of his having a lung mass at that time. It is unclear what workup this is had today. Family history is noncontributory. Review of Systems Review of Systems: All systems reviewed & are unremarkable except as noted in HPI and below PMFSH Past Medical History Medical History DVT (deep venous thrombosis) First degree AV block Social History Social History Smoking status: Never smoker Gender identity (if verbalized by the patient): Female Meds Home Medications and Allergies Home Medications Medication Instructions Recorded Confirmed Type ondansetron HCl [Zofran] 4 mg PO Q6H PRN #10 tablet 07/25/19 Rx Allergies Allergy/AdvReac Type Severity Reaction
--- NOTE | 2019-10-09 02:35 | OP_ITS ---
DATE OF PROCEDURE: 10/08/2019 PROCEDURE PERFORMED: Esophagogastroduodenoscopy and food disimpaction. PREOPERATIVE DIAGNOSES: Food impaction, chronic dysphagia, on Xarelto anticoagulation. 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 DESCRIPTION OF PROCEDURE: Informed consent for the procedure was obtained from the patient. The risks, benefits, alternatives, and indications were discussed and agreed to prior to starting sedation. The risks include, but are not limited to, adverse reaction to medications including allergies, the risk of bleeding and possible need for transfusion, the risk of perforation and possible need for surgery, and the risk for missed pathology. The patient voiced clear understanding, agreed to proceed. The patient is sedated with MAC anesthesia. [employer] video endoscope was passed through the esophagus. However, large bolus of food was impacted in the proximal esophagus limiting visualization distally. Subsequently, the suction tip was applied to the end of the endoscope. Subsequent endoscopy with the suction tip was able to suction, removed large food bolus from proximal esophagus. Subsequent endoscopy reveals distal esophageal stricture with mild tearing from the previous food impaction. No significant bleeding noted at the GE junction. Esophageal web was identified. The stomach itself was seen in its entirety including U-turn is normal. Duodenum reveals normal bulb and sweep to 2nd portion. IMPRESSION: 1. Food impaction, status post disimpaction. 2. Proximal esophageal stricture with some tearing noted because of the food impaction. 3. 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 These are not dilated any further because of the patient's anticoagulated status. PLAN: The patient remain on a soft diet. She is to call the office to arrange followup EGD and dilatation later date when anticoagulation can be held. D I MT: Era
== END 2019-10-08 22:40 | disposition home or self-care (01) ==
LOC: ANHED 21:35 → ANHENDO 10-11 06:42
PROVIDERS: Internal Medicine Gastroenterology; PCP Family Medicine; Visit Provider Emergency Medicine
PROC: 0DJ08ZZ Inspection of Upper Intestinal Tract, Via Natural or Artificial Opening Endoscopic (ICD-10-PCS; CPT 43235; principal; 2019-10-08 21:30)
DX: T18.128A Food in esophagus causing other injury, initial encounter (principal); K22.2 Esophageal obstruction; I82.409 Acute embolism and thrombosis of unspecified deep veins of unspecified lower extremity; D49.6 Neoplasm of unspecified behavior of brain; R91.8 Other nonspecific abnormal finding of lung field; I44.0 Atrioventricular block, first degree; Z79.01 Long term (current) use of anticoagulants
CPT/HCPCS: 43247; 36415; 71045; 80048; 85025; 85055; 85610; 85730; 96374; 99285; J1610; J2704; J7120

== ENCOUNTER 2024-08-18 22:04 | Emergency (ER) | payer MEDICARE, SELFPAY ==
--- OUTSIDE RECORDS SUMMARY | 2024-08-18 22:07 | XMS_ITS | Clinical Summary ---
Author Organization [facility] Address [facility] [place] [address] Care Team Providers Care Correctional Counselor Name Role Phone Mile Fisher MD Primary Care Provider + Allergies No known active allergies Medications vitamin B-12 (CYANOCOBALAMIN) (CYANOCOBALAMIN) 1000 mcg tablet Take 1 tablet (1,000 mcg total) by mouth daily. Active XARELTO 20 MG Tab tablet 1 tablet (20 mg total). qod 04/15/2024 Active furosemide (LASIX) 20 MG tabletIndication s:Acute congestive heart failure, unspecified heart failure type ([facility]) TAKE 1 TABLET(20 MG) BY MOUTH DAILY 90 tablet 07/11/2024 Active Active Problems Problem Noted Date Diagnosed Date CKD (chronic kidney disease), stage III 07/06/19 Overview (07/05/2024): Last GFR 50s Assessment & Plan (07/05/2024 3:39 PM CDT): May benefit from an adjustment to her Xarelto dosing to 15 mg daily instead of 20 mg daily Postmenopausal bleeding 07/05/2024 Assessment & Plan (07/05/2024 3:41 PM CDT): Patient is adamant she does not want to pursue want to pursue any workup or testing for this. We discussed the possibility this could reflect endometrial cancer versus hyperplasia versus polyps. She acknowledges this risk and still prefers not to do any testing. Pulmonary embolism ([facility]) 10/29/2023 Assessment & Plan (07/05/2024 3:40 PM CDT): Will confirm kidney function before deciding if her Xarelto dose needs to be reduced to 15 mg daily. We discussed that Xarelto is not effective taken every other day and she would be at risk for recurrent pulmonary embolism. While she did hold her Xarelto while she was bleeding actively she is no longer bleeding and should resume daily treatment. Assessment & Plan (10/29/2023 3:00 PM CDT): Ordered CBC and CMP to evaluate kidney function and ensure her dose of Xarelto is appropriate. Await records from [place]. Chronic venous stasis 10/29/2023 Overview (10/29/2023): Bilateral swelling. Takes furosemide to manage symptoms. Assessment & Plan (07/05/2024 3:42 PM CDT): Son is understandably concerned that this could reflect cardiac causes. Agreed and recommended that she have additional cardiac testing performed and she declines adamantly. We will check a BNP which we can obtain along with her other labs today. This might point us in a new direction and might provide some additional support to get additional tests done. Will confirm BMP and kidney function can tolerate her furosemide. Assessment & Plan (10/29/2023 3:00 PM CDT): Ordered BMP to evaluate kidney function. Continue furosemide. Atrioventricular block, Mobitz type 1, [place] h 01/26/2022 GERD (gastroesophageal reflux disease) 2 H/O meningioma of the brain 01/25/2022 Overview (10/29/2023): Posterior fossa, s/p fractionated stereotactic radiosurgery. Previously saw neurology but no longer sees them. Pt prefers not to pursue further. exterminator helper vision and balance problems. Bilateral leg weakness 08/03/2019 History of deep venous thrombosis 08/03/2019 Overview (10/29/2023): Takes xarelto. Encounters Date Type Department Care Team Description 07/12/[address] [place] [address] Mile Fisher MD Information 07/05/2024 12:40 PM CDT Office Visit [address] [place] [address] Mile Fisher MD Follow Up (Here to discuss meds. Her Xaralto was making her bleeding from the vagina and other places. She is taking this qod. . Bright red. Vag bleeding lasted 6 days. Once she stopped the Xaralto no vag bleeding. ) 07/05/2024 Travel 06/29/2024 Patient Outreach [address] [place] [address] Mile Fisher MD Pre-visit Gap Closure from Last 3 Months Family History Relation Status Comments Father Mother Social History Tobacco Use Types Packs/Day Years Used Date Smoking Tobacco: Never Passive Smoke Exposure: Never Smokeless Tobacco: Never Tobacco Cessation:Counseling Given: No Alcohol Use Standard Drinks/Week Comments Yes 0 (1 standard drink = 0.6 oz pur e alcohol) social PHQ-2 Answer Date Recorded Patient Health Questionnaire-2 Score 0 07/05/2024 Comments No Sex and Gender Information Value Date Recorded Sex Assigned at Not on file Legal Sex Female 6:54 PM CDT Gender Identity Not on file Sexual Orientation Not on file Last Filed Vital Signs Vital Sign Reading Time Taken Comments Blood Pressure 136/70 07/05/2024 12:28 PM CDT Pulse 51 07/05/2024 12:28 PM CDT Temperature 36.8 C (98.2 F) 07/05/2024 12:28 PM CDT Respiratory Rate 21 01/05/2024 3:27 PM CDT Oxygen Saturation 96% 07/05/2024 12:28 PM CDT Inhaled Oxygen Concentration - - Weight 88 kg (194 lb) 07/05/2024 12:28 PM CDT Height 163.2 cm (5' 4.25 ) 07/05/2024 12:28 PM C DT Body Mass Index 33.04 07/05/2024 12:28 PM CDT Plan of Treatment Upcoming Encounters Date Type Department Care Team (Late st Contact Info) Description 12/20/2024 1:40 PM CDT Office Visit [facility] [place] [address] [place], [place] [address] Mile Fisher MD [address] [place], [place] [id number] 12/20/2024 2:00 PM CDT Office Visit [facility] [place] [address] [place], [place] [phone] Mile Fisher MD [address] [place], [place] [id number] Health Maintenance Due Date Last Done Comments COVID-19 Vaccine ( - 2023-2 5 season) 2025 Postponed from 12/12 (Patient Refused) DTaP, Tdap and Td Vaccines ( 1 - Tdap) 01/04/2025 Postponed from 08/28 (Patient Refused) Dexa Scan (General) 01/04/2025 Postpone d from 2005 (Patient Refused) Pneumococcal Vaccine: 50+ Ye ars (1 of 2 - PCV) 01/04/2025 Postponed from 08/28 (Patient Refused) RSV Immunization or 60+ Years (1 - 1-dose 75+ series) 01/04/2025 Postponed from 08/29/2015 (Patient Refused) Zoster Vaccines (1 of 2) 01/04/2025 Pos tponed from 1990 (Patient Refused) Annual Medicare Wellness Visit 01/05/2025 01/05/2024 PHQ-2 (Physician [place]) Completed 07/05/2024 Meningococcal B Vaccine Aged Out No l onger eligible based on patient's age to complete this topic Meningococcal Vaccine Aged Out No tj omega eligible based on patient's age to complete this topic RSV Immunizations Under 20 Months Aged Out No longer eligible based on patient's age to complete this topic Procedures Procedure Name Priority Date/Time Associated Diagnosis Comments COLLECTION VENOUS BLOOD VENIPUNCTURE Routine 07/05/2024 1:35 PM CDT Diabetes mellitus screening Other pulmonary embolism without acute cor pulmonale, unspecified chronicity ([facility] HHS/HCC) CBC W/DIFF AUTOMATED Routine 07/05/2024 1:35 PM CDT Other pulmonary embolism without acute cor pulmonale, unspecified chronicity ([facility] HHS/HCC) COMPREHENSIVE METABOLIC PANEL Routine 07/05/2024 1:35 PM CDT Lymphedema HEMOGLOBIN, GLYCOSYLATED Routine 07/05/2024 1:35 PM CDT Diabetes mellitus screening PRO-BRAIN NATRIURETIC PEPTIDE Routine 07/05/2024 1:35 PM CDT Lymphedema Shortness of breath from Last 3 Months Results * (ABNORMAL) PRO-BRAIN NATRIURETIC PEPTIDE (07/05/2024 1:35 PM CDT) PRO-B TYPE NATRIURETIC PEPTIDE 1,702(H) <450 PG/ML 07/06/2024 10:10 AM CDT [facility] 07/05/2024 1:35 PM CDT us Mile Fisher MD LABORATORY Final Re sult [facility] [address] [place] [address], * (ABNORMAL) HEMOGLOBIN, GLYCOSYLATED (07/05/2024 1:35 PM CDT) HGB A1C 5.8 4.5 - 6.2 % 07/06/2024 11:00 AM CDT [facility] ESTIMATED AVG GLUCOSE 120(H) 74 - 106 MG/DL 07/06/2024 11:00 AM CDT [facility] 07/05/2024 1:35 PM CDT us Mile Fisher MD LABORATORY Final Re sult -[facility] [place] [address] [place] [address], [place] [phone] * (ABNORMAL) COMPREHENSIVE METABOLIC PANEL (07/05/2024 1:35 PM CDT) [facility] SODIUM S/P/B 142 136 - 145 MMOL/L 07/05/2024 7:38 PM CDT -[facility] POTASSIUM S/P/B 4.0 3.5 - 5.1 MMOL/L 07/05/2024 7:38 PM CDT -[facility] CHLORIDE S/P/B 106 98 - 107 MMOL/L 07/05/2024 7:38 PM CDT -[facility] CO2 31.0 21 - 32 MMOL/L 07/05/2024 7:38 PM CDT -[facility] GLUCOSE 87 70 - 99 MG/DL 07/05/2024 7:38 PM CDT -[facility] BUN 21(H) 7 - 18 MG/DL 07/05/2024 7:38 PM CDT -[facility] CREATININE S/P/B 0.90 0.55 - 1.02 MG/DL 07/05/2024 7:38 PM CDT -[facility] CALCIUM S/P/B 9.2 8.4 - 10.5 MG/DL 07/05/2024 7:38 PM CDT -[facility] BILIRUBIN TOTAL S/P/B 0.7 0.2 - 1.0 MG/DL 07/05/2024 7:38 PM CDT -[facility] ALKALINE PHOSPHATASE S/P/B 69 55 - 142 U/L 07/05/2024 7:38 PM CDT -[facility] AST 15 15 - 37 U/L 07/05/2024 7:38 PM CDT [facility] ALT 11(L) 14 - 59 U/L 07/05/2024 7:38 PM CDT [facility] TOTAL PROTEIN S/P/B 7.4 6.4 - 8.2 G/DL 07/05/2024 7:38 PM CDT [facility] ALBUMIN S/P/B 3.3(L) 3.4 - 5.0 G/DL 07/05/2024 7:38 PM CDT [facility] ANION GAP 5.0 5 - 15 MMOL/L 07/05/2024 7:38 PM CDT [facility] Comment:REFERENCE RANGE NOT ESTABLISHED OSMOLALITY (CALC) 296 MOSM/KG 025 7:38 PM T [facility] Comment:REFERENCE RANGE NOT ESTABLISHED GFR ESTIMATE 63(L) >90 ML/MIN/1. 73 M2 07/05/2024 7:38 PM CDT [facility] GFR NOTES GFR REFERENCE S: 07/05/2024 7:38 PM CDT [facility] Comment: THE ESTIMATED GFR IS CALCULATED USING THE 2020 CKD-EPI EQUATION. THE FOLLOWING CATEGORIES FOR GRADING RENAL FUNCTION ARE RECOMMENDED BY THE INTERNATIONAL SOCIETY OF NEPHROLOGY (KDIGO 2012 CLINICAL PRACTICE GUIDELINE). G1,NORMAL OR HIGH: >89 ml/min/1.73 m2 G2,MILDLY DECREASED: 60-89 ml/min/1.73 m2 G3A,MILDLY TO MODERATELY DECREASED: 45-59 ml/min/1.73 m2 G3B,MODERATELY TO SEVERELY DECREASED: 30-44 ml/min/1.73 m2 G4,SEVERELY DECREASED: 15-29 ml/min/1.73 m2 G5,KIDNEY FAILURE: <15 ml/min/1.73 m2 07/05/2024 1:35 PM CDT us Mile Fisher MD LABORATORY Final Re sult -[facility] [address] [place] [address], * (ABNORMAL) CBC W/DIFF AUTOMATED (07/05/2024 1:35 PM CDT) [facility] WBC 5.53 4.00 - 10.80 x10'3/uL 07/05/2024 8:08 PM CDT [facility] RBC 4.31 4.10 - 5.40 x10'6/uL 07/05/2024 8:08 PM CDT [facility] HGB 13.2 12.0 - 16.0 G/DL 07/05/2024 8:08 PM CDT [facility] HCT 40.9 36.0 - 47.0 % 07/05/2024 8:08 PM CDT [facility] MCV 94.9 78.0 - 100.0 FL 07/05/2024 8:08 PM CDT [facility] MCH 30.6 27.0 - 31.0 PG 07/05/2024 8:08 PM CDT [facility] MCHC 32.3(L) 33.0 - 36.0 G/DL 07/05/2024 8:08 PM CDT [facility] RDW 14.1 11.5 - 14.5 % 07/05/2024 8:08 PM CDT [facility] PLT 158 150 - 350 x10'3/uL 07/05/2024 8:08 PM CDT [facility] MPV UNABLE TO PERFORM TEST 7.4 - 10.4 FL 07/05/2024 8:08 PM CDT [facility] Comment:LARGE PLATELETS PRES ENT. DIFFERENTIAL TYPE AUTOMATED DIFFERENTIAL 07/05/2024 8:08 PM T [facility] NEUTROPHILS % 71.7 % 07/05/2024 8:08 PM CDT [facility] LYMPHOCYTES % 18.8 % 07/05/2024 8:08 PM CDT [facility] MONOCYTES % 7.2 % 07/05/2024 8:08 PM CDT [facility] EOSINOPHILS % 1.6 % 07/05/2024 8:08 PM CDT [facility] BASOPHILS % 0.5 % 07/05/2024 8:08 PM CDT [facility] IMMATURE GRANS % 0.2 % 07/05/2024 8:08 PM CDT [facility] ABS. NEUTROPHILS 3.96 1.60 - 8.30 x10'3/uL 07/05/2024 8:08 PM CDT [facility] ABS. LYMPHOCYTES 1.04 0.80 - 4.70 x10'3/uL 07/05/2024 8:08 PM CDT [facility] ABS. MONOCYTES 0.40 0.00 - 1.50 x10'3/uL 07/05/2024 8:08 PM CDT [facility] ABS. EOSINOPHILS 0.09 0.00 - 0.40 x10'3/uL 07/05/2024 8:08 PM CDT [facility] ABS. BASOPHILS 0.03 0.00 - 0.20 x10'3/uL 07/05/2024 8:08 PM CDT [facility] ABS. IMMATURE GRANULOCYTES 0.01 0.00 - 0.03 x10'3/uL 07/05/2024 8:08 PM CDT [facility] 07/05/2024 1:35 PM CDT us Mile Fisher MD LABORATORY Final Re sult [facility] [address] [place] [address], [place] [phone] from Last 3 Months Insurance [facility] Care Teams Correctional Counselor Relationship Specialty Start Date End Date Mile Fisher MD [address] [place] [address] PCP - General FAMILY PRACTICE 10/29/23
--- OUTSIDE RECORDS SUMMARY | 2024-08-18 22:07 | XMS_ITS | Data Portability ---
Author Organization [place] [facility], Main Office Address [address] [place] [address] Assessment No assessment recorded. Plan of Treatment Reminders Order Date Submit Date Provider Last Modified By Organization Details Last Modified Time Details Appointments None record ed. Lab None record ed. Referral None record ed. Procedures None record ed. Surgeries None record ed. Imaging None record ed. Medication Orders None record ed. Patient TargetsNo targets recorded. Patient Instructions Encounter Date Encounter Id Patient Instructions Last Modified By Organization Details Last Modified Time 03/25/2023 [id number] multi-dimensiona l health assessment questionnaire* [email or web address] Not available 03/25/2023 16:25:49 Personalized [facility] Plan and Screening Recommendations Advance Directives - Do you have one? Advance Directives - Do we have your advance directive on file in your health record? Primary Prevention/Interven tion (prevents or decreases the chance of common diseases from occurring) Smoking Risk: Alcohol Misuse Screening: Weight: Physical activity: Nutrition: Fall Risk (screened today): Vaccines Pneumococcal: Ordered Recommended today Recommended today, but you have declined Influenza: Ordered Recommended today Recommended today, but you have declined Chronic Disease Risks Stroke: I have no recommendations Act sarthak diagnosis, Continue current treatment plan Heart Attack: I have no recommendations Act sarthak diagnosis, Continue current treatment plan Clogging of the Arteries: I have no recommendations Act sarthak diagnosis, Continue current treatment plan Diabetes: Active diagnosis, Continue current treatment plan Secondary Prevention/Interven tion (detects treatable diseases before they may cause symptoms, disability, or ) Breast Cancer Screening with mammogram: Your next mammogram: Ordered Recommended today Recommended today, but you have declined Cervical/Uterine/Ov edil Cancer Screening: No screening necessary Osteoporosis Screening: Your next DEXA in: Ordered Recomme nded today Recommended today, but you have declined Date Screening Last Performed: Colon Cancer Screening: No screening necessary Date Screening Last Performed: Eye Disease Screening: Dementia Risk: Depression Screening: Active diagnosis, Continue current treatment plan Not available 04/09/2023 18:43:05 Reason for Referral None Reported. Results Created Date Observation Date Name Description Value Unit Range Abnormal Flag Note LastModifiedBy Organization Detail LastModifiedTime Result Notes None recorded. Problems Name Problem SNOMED Code Status Onset Date Resolution Date Notes Provider Name and Address Organization Details Recorded Time Cellulitis 888151075 Active Not Available [facility] 3 08:49:32 Deep venous thrombosis 178580567 Active Not Available [facility] 3 08:49:32 Abscess 590929725 Active Not Available 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 3 08:49:32 Abdominal pain 71626817 Active Not Available [facility] 3 08:49:32 Endometrial hyperplasia 145594264 Active Not Available [facility] 3 08:49:32 Abnormal vaginal bleeding 565822920 Active Not Available 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 3 08:49:32 Osteoarthriti s 366131280 Active Not Available [facility] 3 08:49:32 Pulmonary embolism 64988917 Active Not Available [facility] 3 08:49:32 Otitis media 92315998 Active Not Available [facility] 3 08:49:33 Benign neoplasm of brain 13045665 Active [address] [facility] 3 08:49:33 Problem Notes None recorded. Procedures Surgical History Date Name Laterality Status Provider Name and Address Organization Details Recorded Time 3 Medicare Wellness CPT Code, subsequent completed Marley Dee RN [place] - [facility] [employer] [facility] 03/25/2023 14:38:59 Imaging Results None recorded. Procedure Notes None recorded. Medical Equipment None Reported. Allergies No known drug allergies Medications Name Sig Start Date Stop Date Status Note LastModified by Organization Details LastModified Time doxycycline monohydrate 25 mg/5 mL oral suspension TK 20 ML PO BID FOR 1 WEEK 03/29 completed Not Available Not Available Not Available doxycycline hyclate 100 mg capsule TK 1 C PO BID FOR 7 DAYS 03/29 completed Not Available Not Available Not Available cephalexin 250 mg capsule TAKE 1 CAPSULE BY MOUTH FOUR TIMES DAILY FOR 3 DAYS 03/24 completed Not Available Not Available Not Available hydrocodone 5 mg-acetamin ophen 325 mg tablet TK 1 T PO Q 6 H PRF PAIN 03/29 completed Not Available Not Available Not Available ondansetron HCl 8 mg tablet Take 1 tablet every 8 hours by oral route as needed. active Not Available Not Available No t Available amlodipine 5 mg tablet 1 po qday 12/21 completed Not Available Not Available Not Available aspirin 81 mg tablet,gala yed release Take 1 tablet every day by oral route. 11/25 completed Not Available Not Available Not Available amoxicillin 875 mg tablet Take 1 tablet every 12 hours by oral route for 7 days. 11/02 completed Not Available Not Available Not Available famotidine 20 mg tablet 1 po bid 12/21 completed Not Available Not Available Not Available amoxicillin 250 mg/5 mL oral suspension 01/14 completed Not Available Not Available Not Available dexamethaso ne 2 mg tablet taper 12/21 completed Not Available Not Available Not Available erythromyci n 5 mg/gram (0.5 %) eye ointment APPLY 1 CM RIBBON INTO THE LOWER CONJUNCTI PRABHA SAC(S) IN THE AFFECTED EYE(S) BY OPHTHALMI C ROUTE 3 TIMES PER DAY x 7 days active Not Available Not Available No t Available oseltamivir 75 mg capsule TAKE 1 CAPSULE BY MOUTH TWICE DAILY FOR 4 DAYS 03/24 completed Not Available Not Available Not Available neomycin-po lymyxin-dex ameth 3.5 mg/mL-10,00 0 unit/mL-0.1 % eye drops 11/25 completed Not Available Not Available Not Available triamcinolo ne acetonide 0.1 % topical ointment APPLY A THIN LAYER TO THE AFFECTED AREA(S) BY TOPICAL ROUTE 2 TIMES PER DAY prn rash 12/21 completed Not Available Not Available Not Available polymyxin B sulfate 10,000 unit-trimet hoprim 1 mg/mL eye drops INT 1 GTT IN THE AFFECTED EYES Q 6 H active Not Available Not Available No t Available sulfamethox azole 200 mg-trimetho prim 40 mg/5 mL oral suspension Take 20 mL every 12 hours by oral route for 7 days. active Not Available Not Available No t Available amoxicillin 400 mg/5 mL oral suspension 08/08 completed Not Available Not Available Not Available furosemide 20 mg tablet TAKE 1 TABLET BY MOUTH IN THE MORNING NEEDED active Not Available Not Available No t Available azithromyci n 200 mg/5 mL oral suspension 12/21 completed Not Available Not Available Not Available ketoconazol e 2 % topical cream APPLY TO THE AFFECTED AREA(S) BY TOPICAL ROUTE ONCE DAILY x 30 days prn rash 12/21 completed Not Available Not Available Not Available Cipro 500 mg/5 mL oral suspension TK 5 ML PO BID FOR 1 WK 03/29 completed Not Available Not Available Not Available garlic 08/08 completed Not Available Not Available Not Available B Complex-Vit fernandez B12 10/15 completed Not Available Not Available Not Available Cinnamon 08/08 completed Not Available Not Available Not Available Xarelto 10 mg tablet TK 1 T PO QD 11/23 completed Not Available Not Available Not Available Xarelto 15 mg tablet 10/15 completed Not Available Not Available Not Available Xarelto 20 mg tablet TAKE 1 TABLET BY MOUTH EVERY DAY 2023 active Not Available Not Available Not Avai lable Eliquis 5 mg tablet TK 1/2 T PO BID 03/29 completed Not Available Not Available Not Available Vitals Date Recorded Body mass index (BMI) Body height Oxygen saturation Oxygen saturation in Arterial blood by Pulse oximetry Heart rate Body temperature Body weight Systolic blood pressure Diastolic blood pressure Provider Name and Address Organization Details Last Updated DateTime 1 29.9 kg/m2 167.64 cm 97 % 97 % 67 /min 97.6 [degF] 64652.5 9 g 112 mm[Hg] 60 mm[Hg] Not Available [facility] 3 08:46:58 Date Recorded Oxygen saturation Oxygen saturation in Arterial blood by Pulse oximetry Heart rate Body temperature Body weight Systolic blood pressure Diastolic blood pressure Provider Name and Address Organization Details Last Updated DateTime 2 98 % 98 % 65 /min 97.2 [degF] 41734.4 7 g 118 mm[Hg] 74 mm[Hg] Not Available [facility] 3 08:46:59 Date Recorded Body weight Body temperature Heart rate Oxygen saturation Oxygen saturation in Arterial blood by Pulse oximetry Systolic blood pressure Diastolic blood pressure Provider Name and Address Organization Details Last Updated DateTime 3 53801.6 6 g 97.7 [degF] 58 /min 98 % 98 % 130 mm[Hg] 78 mm[Hg] Marley Dee RN [place] - [facility] 3 14:45:14 Social History Question Answer Notes LastModified by Organizat ion Details LastModified Time Tobacco Smoking Status Never Smoker Not Available [facility] 06/11/2022 08:44:58 Do You Wear A Helmet When Biking? No [id number] Information not available 06/11/2022 What Type Of Diet Are You Following? REGULAR [id number] Information not available 06/11/2022 Have There Been Any Changes To Your Family Or Social Situation? No [id number] Information not available 06/11/2022 What Was The Date Of Your Most Recent Tobacco Screening? 03/25/2023 Information not available 03/25/2023 What Is Your Relationship Status? [id number] Information not available 06/11/2022 Do You Use Your Seat Belt Or Car Seat Routinely? Yes [id number] Information not available 06/11/2022 Do You Have Smoke And Carbon Monoxide Detectors In Your Home? Yes [id number] Information not available 06/11/2022 Do You Participate In Social Media? No [id number] 026 Information not available 06/11/2022 Do You Feel Stressed (tense, Restless, Nervous, Or Anxious, Or Unable To Sleep At Night)? [id number] 026 Information not available 06/11/2022 Do You Use Any Illicit Or Recreational Drugs? No [id number] 026 Information not available 06/11/2022 Has Tobacco Cessation Counseling Been Provided? No [id number] 026 Information not available 06/11/2022 Are You Currently In School? No [id number] 026 Information not available 06/11/2022 Do You Have Any Dietary Restrictions? No [id number] 026 Information not available 06/11/2022 Do You Or Have You Ever Used Any Other Forms Of Tobacco Or Nicotine? No [id number] 026 Information not available 06/11/2022 Sex: Unknown Functional Status Question Answer Note LastModified by Organizat ion Details LastModified Time What is your exercise level? Occasional [id number] 26 Information not available 06/11/2022 Mental Status None recorded. Family History Relationship Description Onset Age of this Age Resolved Age Notes LastModified by Organization Details LastModified Time Mother Cerebrovascu lar accident [id number] Not available 06/11/2022 08:45:16 Father Myocardial infarction [id number] Not available 06/11/2022 08:45:16 Medical History No medical history recorded. Gynecological HistoryNo gynecological history recorded. Obstetrics History GPAL:G 0 P 0 0 0 0 Past Encounters Encounter ID Performer Location Encounter Start Date Encounter Closed Date Diagnosis/Indication Diagnosis SNOMED-CT Code Diagnosis ICD10 Code Diagnosis Note [id number] Mary Keene MD [facility] Primary [facility] [place] [address] [facility] [place] [address] 01/14/2021 00:00:00 01/15/2021 14:08:21 [id number] Mary Keene MD [facility] Primary Care [place] [address] [place] [address] 03/24/2022 00:00:00 04/11/2022 07:31:21 [id number] Mary Keene MD [facility] Primary [facility] [place] [address] [place] [address] 03/25/2023 14:20:46 03/25/2023 16:12:06 Adult health examination 773474086 Z00.00 declines vaccinesde clines labsno colon cancer screen neededno cervical cancer screen neededmamm ogram and dexa declined Health Concerns Section Related Observation LastModified by Organization Detai ls LastModified Time None Recorded Concern Status LastModified by Organization Details LastModified Time None Recorded Advance Directives Directive None Recorded Payers Encounter Date Sequence Insurance Name Policy Number Policy Edmonds Covered Member ID Edmonds Member ID Guarantor Name 03/25/2023 1 [facility] (MEDICARE REPLACEMENT/A DVANTAGE - HMO) [id number] Yanna Grey [id number] Yanna Dee Notes Date Note Type Note Provider Name and Address Organization Details Recorded Time 03/25/2023 text/html Here for wellness exam. no chest pain or sob Mary Keene MD [address] [place] [address], [facility] [address], [place], [address], [facility] 04/09/2023 18:43:17 OBGyn Episode No OBEpisode recorded.
--- OUTSIDE RECORDS SUMMARY | 2024-08-18 22:07 | XMS_ITS | Clinical Summary ---
Author Organization [facility] Address [address] [place] [address] Phone Care Team Providers Care [employer] Name Role Phone Mary Keene MD Primary Care Provider + Allergies No known active allergies Medications rivaroxaban (Xarelto) 20 mg Tablet Take 20 mg by mouth daily with breakfast. Active cyanocobalamin (VITAMIN B-12) 100 mcg tablet Take 100 mcg by mouth daily. Active acetaminophen (TYLENOL) 325 mg tablet Take 325-650 mg by mouth every 4 hours as needed. Active dexAMETHasone (DECADRON) 2 mg tablet Take 1 tablet every 6 hours for 4 days; then 1 tab twice daily for 4 days; then take 1 tab daily until the completion of radiation treatment 50 Tablet 08/06/2019 9:03 AM CDT 0 Active amLODIPine (NORVASC) 5 mg tablet Take 1 Tablet (5 mg) by mouth daily. 30 Tablet 08/06/2019 9:03 AM CDT 0 Active famotidine (Pepcid) 20 mg tablet Take 1 Tablet by mouth 2 times daily. 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 08/03/2019 Bilateral leg weakness, progressive 08/03/2019 Personal history of DVT (deep vein thrombosis) 0 08/03/2019 Postmenopausal vaginal bleeding 08/03/2019 Social History Tobacco Use Types Packs/Day Years Used Date Smoking Tobacco: Never Smokeless Tobacco: Never Comments Unknown Sex and Gender Information Value Date Recorded Sex Assigned at Not on file Legal Sex Female 3:06 PM CDT Gender Identity Not on file Sexual Orientation Not on file Last Filed Vital Signs Vital Sign Reading Time Taken Comments Blood Pressure 152/55 12/07/2019 1:35 PM CDT Pulse 54 12/07/2019 1:35 PM CDT Temperature 36.8 C (98.3 F) 12/07/2019 1:35 PM CDT Respiratory Rate 18 12/07/2019 1:35 PM CDT Oxygen Saturation 97% 12/07/2019 1:35 PM CDT Inhaled Oxygen Concentration - - Weight 79.4 kg (175 lb) 12/07/2019 1:35 PM CDT Height 168.9 cm (5' 6.5 ) 12/07/2019 1:35 PM CDT Body Mass Index 27.82 12/07/2019 1:35 PM CDT Plan of Treatment Health Maintenance Due Date Last Done Comments DTAP/TDAP/TD VACCINES (1 - Tdap) 08[birth year]29/1959 PNEUMOCOCCAL VACCINE 50+ YEARS (1 of 1 - PCV) 08/28/18 91 ZOSTER VACCINE (1 of 2) 1990 OSTEOPOROSIS SCREENING 2005 RSV VACCINE (60+ or ) (1 - 1-dose 75+ series) 08/29/2015 INFLUENZA VACCINE (#1) 2023 Insurance [facility] [id number] [place] [address] RX [employer] Member Subscriber Plan / Payer (Ef fective 2019-Present) Name:Yanna Hartley Relation to Subscriber:Self Name:Gissel Hartleyhleen Subscriber ID:Not on file Payer ID:Not on file Group ID:[id number] Type:RX Medicare Part D Address: [address] Advance Directives For more information, please contact: [phone] * Full Code (Latest Code Status on File) Date Activated Date Inactivated Comments 08/03/2019 9:48 PM 08/06/2019 5:09 PM Care Teams [employer] Relationship Specialty Start Date End Date Mary Keene MD [address] [place] [id number] PCP - General Family Practice 08/08/19
[2024-08-18 22:10] VITALS: BP 185/76; PULSE 55; RESP 20; TEMP 36.6; O2SAT 96
--- OUTSIDE RECORDS SUMMARY | 2024-08-18 23:30 | XMS_ITS | Clinical Summary ---
Author Organization [facility] Address [facility] [place] [address] Care Team Providers Care Desk Pen Set Assembler Name Role Phone Mile Fisher MD Primary Care Provider + Allergies No known active allergies Medications vitamin B-12 (CYANOCOBALAMIN) (CYANOCOBALAMIN) 1000 mcg tablet Take 1 tablet (1,000 mcg total) by mouth daily. Active XARELTO 20 MG Tab tablet 1 tablet (20 mg total). qod 04/15/2024 Active furosemide (LASIX) 20 MG tabletIndication s:Acute congestive heart failure, unspecified heart failure type ([facility]) TAKE 1 TABLET(20 MG) BY MOUTH DAILY [...] not to do any testing. Pulmonary embolism ([facility]) 10/29/2023 Assessment & Plan (07/05/2024 3:40 PM [...] of Xarelto is appropriate. Await records from [place]. Chronic venous stasis 10/29/2023 Overview (10/29/2023): Bilateral [...] them. Pt prefers not to pursue further. 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 Bilateral leg weakness 08/03/2019 History of deep venous thrombosis 08/03/2019 Overview (10/29/2023): Takes xarelto. Encounters Date Type Department Care Team Description 07/12/[address] [place] [address] Mile Fisher MD Information 07/05/2024 12:40 PM CDT Office Visit [address] [place] [address] Mile Fisher MD Follow Up (Here to discuss meds. Her Xaralto was making her bleeding from the vagina and other places. She is taking this qod. . Bright red. Vag bleeding lasted 6 days. Once she stopped the Xaralto no vag bleeding. ) 07/05/2024 Travel 06/29/2024 Patient Outreach [address] [place] [address] Mile Fisher MD Pre-visit Gap Closure from [...] Description 12/20/2024 1:40 PM CDT Office Visit [facility] [place] [address] [place], [place] [address] Mile Fisher MD [address] [place], [place] [id number] 12/20/2024 2:00 PM CDT Office Visit [facility] [place] [address] [place], [place] [phone] Mile Fisher MD [address] [place], [place] [id number] Health Maintenance Due Date Last Done Comments [...] Medicare Wellness Visit 01/05/2025 01/05/2024 PHQ-2 (Physician [place]) Completed 07/05/2024 Meningococcal B Vaccine Aged Out [...] embolism without acute cor pulmonale, unspecified chronicity ([facility] HHS/HCC) CBC W/DIFF AUTOMATED Routine 07/05/2024 1:35 PM CDT Other pulmonary embolism without acute cor pulmonale, unspecified chronicity ([facility] HHS/HCC) COMPREHENSIVE METABOLIC PANEL Routine 07/05/2024 1:35 PM CDT Lymphedema HEMOGLOBIN, GLYCOSYLATED Routine 07/05/2024 1:35 PM CDT Diabetes mellitus screening PRO-BRAIN NATRIURETIC PEPTIDE Routine 07/05/2024 1:35 PM CDT Lymphedema Shortness of breath from Last 3 Months Results * (ABNORMAL) PRO-BRAIN NATRIURETIC PEPTIDE (07/05/2024 1:35 PM CDT) PRO-B TYPE NATRIURETIC PEPTIDE 1,702(H) <450 PG/ML 07/06/2024 10:10 AM CDT [facility] 07/05/2024 1:35 PM CDT us Mile Fisher MD LABORATORY Final Re sult [facility] [address] [place] [address], * (ABNORMAL) HEMOGLOBIN, GLYCOSYLATED (07/05/2024 1:35 PM CDT) HGB A1C 5.8 4.5 - 6.2 % 07/06/2024 11:00 AM CDT [facility] ESTIMATED AVG GLUCOSE 120(H) 74 - 106 MG/DL 07/06/2024 11:00 AM CDT [facility] 07/05/2024 1:35 PM CDT us Mile Fisher MD LABORATORY Final Re sult -[facility] [address] [place] [address], [place] [phone] * (ABNORMAL) COMPREHENSIVE METABOLIC PANEL (07/05/2024 1:35 PM CDT) [facility] SODIUM S/P/B 142 136 - 145 MMOL/L 07/05/2024 7:38 PM CDT -[facility] POTASSIUM S/P/B 4.0 3.5 - 5.1 MMOL/L 07/05/2024 7:38 PM CDT -[facility] CHLORIDE S/P/B 106 98 - 107 MMOL/L 07/05/2024 7:38 PM CDT -[facility] CO2 31.0 21 - 32 MMOL/L 07/05/2024 7:38 PM CDT -[facility] GLUCOSE 87 70 - 99 MG/DL 07/05/2024 7:38 PM CDT -[facility] BUN 21(H) 7 - 18 MG/DL 07/05/2024 7:38 PM CDT -[facility] CREATININE S/P/B 0.90 0.55 - 1.02 MG/DL 07/05/2024 7:38 PM CDT -[facility] CALCIUM S/P/B 9.2 8.4 - 10.5 MG/DL 07/05/2024 7:38 PM CDT -[facility] BILIRUBIN TOTAL S/P/B 0.7 0.2 - 1.0 MG/DL 07/05/2024 7:38 PM CDT -[facility] ALKALINE PHOSPHATASE S/P/B 69 55 - 142 U/L 07/05/2024 7:38 PM CDT -[facility] AST 15 15 - 37 U/L 07/05/2024 7:38 PM CDT [facility] ALT 11(L) 14 - 59 U/L 07/05/2024 7:38 PM CDT [facility] TOTAL PROTEIN S/P/B 7.4 6.4 - 8.2 G/DL 07/05/2024 7:38 PM CDT [facility] ALBUMIN S/P/B 3.3(L) 3.4 - 5.0 G/DL 07/05/2024 7:38 PM CDT [facility] ANION GAP 5.0 5 - 15 MMOL/L 07/05/2024 7:38 PM CDT [facility] Comment:REFERENCE RANGE NOT ESTABLISHED OSMOLALITY (CALC) 296 MOSM/KG 025 7:38 PM T [facility] Comment:REFERENCE RANGE NOT ESTABLISHED GFR ESTIMATE 63(L) >90 ML/MIN/1. 73 M2 07/05/2024 7:38 PM CDT [facility] GFR NOTES GFR REFERENCE S: 07/05/2024 7:38 PM CDT [facility] Comment: THE ESTIMATED GFR IS CALCULATED USING [...] Mile Fisher MD LABORATORY Final Re sult -[facility] [address] [place] [address], * (ABNORMAL) CBC W/DIFF AUTOMATED (07/05/2024 1:35 PM CDT) [facility] WBC 5.53 4.00 - 10.80 x10'3/uL 07/05/2024 8:08 PM CDT [facility] RBC 4.31 4.10 - 5.40 x10'6/uL 07/05/2024 8:08 PM CDT [facility] HGB 13.2 12.0 - 16.0 G/DL 07/05/2024 8:08 PM CDT [facility] HCT 40.9 36.0 - 47.0 % 07/05/2024 8:08 PM CDT [facility] MCV 94.9 78.0 - 100.0 FL 07/05/2024 8:08 PM CDT [facility] MCH 30.6 27.0 - 31.0 PG 07/05/2024 8:08 PM CDT [facility] MCHC 32.3(L) 33.0 - 36.0 G/DL 07/05/2024 8:08 PM CDT [facility] RDW 14.1 11.5 - 14.5 % 07/05/2024 8:08 PM CDT [facility] PLT 158 150 - 350 x10'3/uL 07/05/2024 8:08 PM CDT [facility] MPV UNABLE TO PERFORM TEST 7.4 - 10.4 FL 07/05/2024 8:08 PM CDT [facility] Comment:LARGE PLATELETS PRES ENT. DIFFERENTIAL TYPE AUTOMATED DIFFERENTIAL 07/05/2024 8:08 PM T [facility] NEUTROPHILS % 71.7 % 07/05/2024 8:08 PM CDT [facility] LYMPHOCYTES % 18.8 % 07/05/2024 8:08 PM CDT [facility] MONOCYTES % 7.2 % 07/05/2024 8:08 PM CDT [facility] EOSINOPHILS % 1.6 % 07/05/2024 8:08 PM CDT [facility] BASOPHILS % 0.5 % 07/05/2024 8:08 PM CDT [facility] IMMATURE GRANS % 0.2 % 07/05/2024 8:08 PM CDT [facility] ABS. NEUTROPHILS 3.96 1.60 - 8.30 x10'3/uL 07/05/2024 8:08 PM CDT [facility] ABS. LYMPHOCYTES 1.04 0.80 - 4.70 x10'3/uL 07/05/2024 8:08 PM CDT [facility] ABS. MONOCYTES 0.40 0.00 - 1.50 x10'3/uL 07/05/2024 8:08 PM CDT [facility] ABS. EOSINOPHILS 0.09 0.00 - 0.40 x10'3/uL 07/05/2024 8:08 PM CDT [facility] ABS. BASOPHILS 0.03 0.00 - 0.20 x10'3/uL 07/05/2024 8:08 PM CDT [facility] ABS. IMMATURE GRANULOCYTES 0.01 0.00 - 0.03 x10'3/uL 07/05/2024 8:08 PM CDT [facility] 07/05/2024 1:35 PM CDT us Mile Fisher MD LABORATORY Final Re sult [facility] [address] [place] [address], [place] [phone] from Last 3 Months Insurance [facility] Care Teams Desk Pen Set Assembler Relationship Specialty Start Date End Date Mile Fisher MD [address] [place] [address] PCP - General FAMILY PRACTICE 10/29/23
--- OUTSIDE RECORDS SUMMARY | 2024-08-18 23:30 | XMS_ITS | Continuity of Care Document ---
Author Organization [facility] Address [address] [place] [address] Phone Care Team Providers Care Director Network Development Name Role Phone Charlette Beard Unavailable Unavailable Advance Directives Directive Yes / No Effective Date File Name No Information Encounters Encounter Description Practice Location Reason(s) For Visit Diagnoses Date Provider Providers Copied on Encounter [facility], [address], [place], [place], [id number], [place] tel:[phone] [facility] No Information Apr-1 0-200 0 Kisha Ovalles. [address], [place], [address], [place]. tel:[phone] Family History Family Member Type Diagnosis Age At Onset No Information Payers Payer name Insurance type Covered alliance party ID Authoriza tion(s) [employer] SOI CI [id number] Social History Type Description Quantity Date Captured Comments Sex Female Smoking Status No Information Chief Complaint And Reason For Visit No Information Reason For Referral Reason For Referral No Information History Of Present Illness Encounter Date Complaint History Of Prese nt Illness No Information Functional Status Date Functional Assessmen t No Information Instructions Date Instruction Additional Infor mation No Information Assessments Type Assessment Date No Information Patient Care Teams Name Effective Dates (start - stop) Status Members No Information
--- OUTSIDE RECORDS SUMMARY | 2024-08-18 23:30 | XMS_ITS | Clinical Summary ---
Author Organization [facility] Address [address] [place] [address] Phone Care Team Providers Care Media Developer Name Role Phone Mary Keene MD Primary [...] series) 08/29/2015 INFLUENZA VACCINE (#1) 2023 Insurance [facility] [id number] [place] [id number] RX [employer] RX Member Subscriber Plan / Payer (Ef fective 2019-Present) Name:Yanna Hartley Relation to Subscriber:Self Name:Gissel Hartleyhleen Subscriber ID:Not on file Payer ID:Not on file Group ID:[id number] Type:RX Medicare Part D Address: [address] Advance Directives For more information, please contact: [phone] * Full Code (Latest Code Status on File) Date Activated Date Inactivated Comments 08/03/2019 9:48 PM 08/06/2019 5:09 PM Care Teams Media Developer Relationship Specialty Start Date End Date Mary Keene MD [address] [id number] PCP - General Family Practice 08/08/19
== END 2024-08-18 23:21 | disposition left against medical advice (07) ==
PROVIDERS: PCP Family Medicine
DX: R20.2 Paresthesia of skin (principal)
CPT/HCPCS: 99199

== ENCOUNTER 2025-04-07 03:34 | Inpatient (IN) | payer MEDICARE, SELFPAY ==
[2025-04-07] VITALS (19 sets, daily range): BP systolic 118–180; BP diastolic 45–70; PULSE 42–70; RESP 18–25; TEMP 36.7–39.4; O2SAT 90–99; BMI 30.7
--- NOTE | 2025-04-07 | ECHO_ITS ---
Patient Info Name: Yanna Grey Age: 84 years : 1940 Gender: Female Ht: 65 in Wt: 198 lbs BSA: 2.06 m2 HR: 44 bpm BP: 161 / 53 mmHg Heart Rhythm: Sinus Rhythm Technical Quality: Fair Exam Date: 04/07/2025 2:32 PM Patient Status: O Admit Date: 04/07/2025 Exam Type: CA echo dop color flow w con Complete two-dimensional, color flow and Doppler transthoracic echocardiogram is performed with contrast to opacify the left ventricle and to improve the deliniation of the left ventricle endocardial borders. Staff Referring Physician: Joesph Hamilton Emission Specialist: Priscilla De Attending Provider: Joesph Hamilton Contrast/Agitated Saline Contrast/Ag. Saline: Definity Amount: 20.00 ml Administered By: Priscilla De Existing IV Access: Yes IV Access Condition: patent with no signs of infiltration Summary 1. Technically difficult exam, patient coughing during study, definity contrast utilized. 2. Normal left ventricular size with vigorous systolic contractility. 3. Mild mitral annular calcification. 4. Mildly sclerotic aortic valve with maintained leaflet excursion. 5. Mild tricuspid regurgitation velocity consistent with elevated pulmonary artery pressure. Left Ventricle Left ventricular chamber dimension is normal. Left ventricular systolic function is normal, estimated at 65-70. The left ventricular diastolic function is indeterminate. Right Ventricle Right ventricular chamber dimension is normal. Left Atria Left atrial chamber dimension is moderately enlarged. Right Atria Right atrial chamber dimension is mildly enlarged. Aortic Valve The aortic valve is trileaflet. There is mild aortic valve sclerosis. Pulmonic Valve The pulmonic valve is not well visualized. Mitral Valve The mitral valve has normal leaflets. The mitral valve annulus is mildly calcified. Tricuspid Valve The tricuspid valve leaflets are normal. There is mild tricuspid valve regurgitation. Pericardium/Pleural The pericardium appears normal. Aorta The aortic root size at the sinus of Valsalva is normal. Left Ventricular Outflow Tract Name Value Normal LVOT 2D LVOT Diameter 2.0 cm LVOT Doppler LVOT Peak Velocity 206 cm/s LVOT Peak Gradient 17 mmHg LVOT Mean Gradient 7 mmHg LVOT VTI 31 cm LVOT VTI/AV VTI Ratio 1.0 LVOT Stroke Volume 96 ml LVOT CO 6.3 l/min LVOT CI 3.1 l/min/m2 Pulmonic Valve Name Value Normal RVOT Doppler RVOT Peak Velocity 72 cm/s RVOT Peak Gradient 2 mmHg PV Doppler PV Peak Velocity 142 cm/s PV Peak Gradient 8 mmHg Mitral Valve Name Value Normal MV Doppler MV Peak Gradient 14 mmHg MV Mean Gradient 4 mmHg MV Area (Cont Eq VTI) 2.3 cm2 MV Diastolic Function MV E Peak Velocity 120 cm/s MV A Peak Velocity 60 cm/s MV E/A 2.0 MV Decel Time (PW) 185 ms MV Annular TDI MV E/e' (Septal) 24.5 Tricuspid Valve Name Value Normal TV Regurgitation Doppler TR Peak Velocity 351 cm/s TR Peak Gradient 49 mmHg Estimated PAP/RSVP RA Pressure 10 mmHg <=5 PA Systolic Pressure 59 mmHg <36 RV Systolic Pressure 59 mmHg <36 TV Annular TDI TV Lateral Isabela s' Velocity 13.5 cm/s >=9.5 Aorta Name Value Normal Ascending Aorta Ao Root Diameter (MM) 3.0 cm Ao Root Diam Index (MM) 1.5 cm/m2 Aortic Valve Name Value Normal AV Doppler AV Peak Velocity 200 cm/s AV Peak Gradient 16 mmHg AV Mean Gradient 7 mmHg AV VTI 32 cm AV Area (Cont Eq VTI) 3.0 cm2 >=3.0 AV Area (Cont Eq Raheem) 3.1 cm2 AV DI (Raheem) 1.03 AV Regurgitation 2D LVOT Area 3.1 cm2 Ventricles Name Value Normal LV Dimensions 2D/MM IVS Diastolic Thickness (2D) 0.8 cm 0.6-1.0 LVID Diastole (2D) 5.2 cm 3.8-5.2 LVIW Diastolic Thickness (2D) 0.8 cm 0.6-0.9 LVID Systole (2D) 3.5 cm 2.2-3.5 LVOT Diameter 2.0 cm LV Mass (2D Cubed) 146.08 g 67.00-162.00 LV Mass Index (2D Cubed) 71 g/m2 43-95 Relative Wall Thickness (2D) 0.31 <=0.42 LV Fractional Shortening/Ejection Fraction 2D/MM LV Fractional Shortening (2D) 32 % 27-45 LV EF (2D Teichholz) 60 % LV Diastolic Volume (4C MOD) 93 ml LV EF (4C MOD) 71 % LV Diastolic Volume (2C MOD) 80 ml LV EF (2C MOD) 73 % LV Diastolic Volume (BP MOD) 88 ml 46-106 LV Diastolic Volume Index (BP MOD) 43 ml/m2 29-61 LV Systolic Volume (BP MOD) 24 ml 14-42 LV Systolic Volume Index (BP MOD) 12 ml/m2 8-24 LV EF (BP MOD) 72 % 54-74 LV Diastolic Length (4C) 8.2 cm LV Systolic Length (4C) 6.3 cm LV Stroke Volume (4C MOD) 66 ml Atria Name Value Normal LA Dimensions LA Dimension (MM) 5.5 cm 2.7-3.8 LA Volume (4C A-L) 96 ml LA Volume (BP A-L) 82 ml RA Dimensions RA Area (4C) 24.2 cm2 <=18.0 Report Signatures
--- NOTE | ~2025-04-07 | XR_ITS ---
XR chest 2V 04/11/2025 13:44 Indication: Pneumonia Procedure: 2 view chest Comparison: Comparison to multiple prior studies sequentially, with oldest reviewed study dated 10/08/2019. Findings: Progression of right-sided airspace disease, compatible with pneumonia. Small right pleural effusion. No pneumothorax. Heart size normal. Impression: 1: Extensive right-sided pneumonia. Reviewed, dictated and finalized at location O. ICE UNIT OPERATOR OIL WELL Impression: 1: Extensive right-sided pneumonia.
--- NOTE | ~2025-04-07 | CT_ITS ---
CTA CHEST CLINICAL HISTORY: SOB, hypoxia; hx PE; dimer >1 . COMPARISON: Chest x-ray today TECHNIQUE: Helical CTA performed from thoracic inlet to upper abdomen IV contrast information not listed in PACS Coronal, sagittal reformats. Multiplanar MIPS CT images acquired with automatic exposure control for dose reduction DLP: 425 mGy-cm FINDINGS: Pulmonary arteries: No PE. Thoracic Aorta: No dissection or aneurysm. Heart/pericardium: Enlarged. RV/LV ratio: Normal. Coronary artery calcification. Lungs/Pleura: Large right pleural effusion, associated dependent atelectasis. Scattered groundglass opacity right lung. Unchanged pleural-based nodular consolidative focus right lateral base; no change for 4 years strongly suggests benign. A few scattered granulomata unchanged. Bibasilar scarring. Tracheobronchial tree: A few scattered bibasilar dependent occlusive foci. Nodes: No enlarged nodes. Bones: No acute bony abnormality. Soft tissues: Unremarkable. Visualized upper abdomen: Unremarkable. IMPRESSION: 1. No PE. 2. Large right pleural effusion. 3. Scattered foci of pneumonitis and/or airspace disease right lung. Reviewed, dictated and finalized at location R. ENGER SERVICE MANAGER
--- NOTE | ~2025-04-07 | XR_ITS ---
Examination: XR chest 2V Clinical History: sob, flu like sx Comparison: Chest same day Technique: PA and Lateral Findings: Cardiomegaly. Large right pleural effusion and scattered right lung interstitial changes. No acute bony abnormality. IMPRESSION: 1. Right pleural effusion. 2. Scattered pneumonitis right lung. Reviewed, dictated and finalized at location R. NT SCOUT
--- NOTE | ~2025-04-07 | XR_ITS ---
EXAMINATION: XR chest 1V portable DATE: 04/09/2025 11:56 INDICATION: Follow-up, pleural effusion. TECHNIQUE: A single frontal view of the chest was obtained. COMPARISON: Chest x-ray dated 04/07/2025. FINDINGS: Cardiomegaly is noted again. Extensive airspace opacities of right lung and patchy airspace opacity of lower left lung field similar to prior study. Bilateral pleural effusion is noted. Overall pulmonary findings are unchanged from prior study. IMPRESSION: 1. Cardiomegaly with airspace opacities of both lungs, right more than the left. 2. Small bilateral pleural effusion. 3. Overall pulmonary findings are unchanged from previous study. Reviewed, dictated and finalized at location T. EN LABOURER IMPRESSION: 1. Cardiomegaly with airspace opacities of both lungs, right more than the left . 2. Small bilateral pleural effusion. 3. Overall pulmonary findings are unchanged from previous study.
--- NOTE | 2025-04-07 04:52 | ECG_ITS ---
Test Date: 2025-04-07 05:26:42 Measurements Intervals [place] Rate: 54 P: 0 OK: 0 QRS: -21 QRSD: 107 T: 12 QT: 421 QTc: 400 Interpretive Statements ATRIAL FIBRILLATION WITH SLOW VENTRICULAR RESPONSE BORDERLINE T WAVE ABNORMALITY- ANTERIOR LEADS BASELINE ARTIFACT- I, II, AVR, V1-V2 ABNORMAL ECG No previous ECG available for comparison Electronically Signed On 04-07-2025 09:09:21 DIGITAL SALES REPRESENTATIVE by Ernie Stoll D.O.
--- NOTE | 2025-04-07 04:53 | ED_ITS ---
HPI - SOB/Dyspnea General Chief Complaint: Upper Respiratory Infection Stated Complaint: flu symptoms Time Seen by Provider: 04/07/25 04:33 Source: patient and EMS Mode of arrival: EMS Limitations: no limitations History of Present Illness HPI Narrative: Patient presents with report of flu-like Thursday which have left her short of breath. She has coughing was initially but has become productive. EMS placed supplemental oxygen presumably for report was unclear. Patient denies smoking denies any underlying respiratory conditions. She does report a history of a PE and is on anticoagulation and a filter in her leg. She states that she has had swell her legs. She lives at with daughter and that she has been so weak that has had to help her extensively with getting around recently due to her weakness. Unclear if history of heart failure. She feels short breath and reports that she vomited in bed. She denies any myalgias. She reports a subjective fever this afternoon as well as earlier throughout the week and that she has been chilled. She denies any diarrhea. No chest pain. Patient did not receive a flu shot this year. In fact patient believes that her symptoms are because she ate some pumpkin bread from someone who had been coughing/ill and that they had recently gotten the flu shot and this is why she believes she is sick. Related Data Allergies Allergy/AdvReac Type Severity Reaction Status Date / Time poison urban extract Allergy Mild ITCH Verified 04/07/25 11:22 [facility] Past Medical History Medical History Chronic anticoagulation Pulmonary embolism Lung mass Brain tumor First degree AV block DVT (deep venous thrombosis) Surgical History Surgical History History of surgery on lower extremity filter Family History Family History (Updated 04/07/25 @ 11:27 by Christie Corbin RN) Mother Heart attack Father Heart attack Sibling Pacemaker Social History Social History (Updated 04/07/25 @ 18:20 by Patricia Hirsch MD) Smoking status: Never smoker Second hand tobacco smoke exposure: Yes Alcohol intake: former Substance use: never Substance use type: does not use Other substance usage details: DRANK A HALF CAN OF CARO AT NIGHT BUT DOES NOT ANYMORE Last use: Lack of Transportation: No Lack of Food: Never True Current Housing: I Have Housing Concerned About Future Housing: No Difficulty Paying Gas/Electric Bills: No Difficulty Paying for Meds: No Currently Unemployed: No Education: Bachelor's Degree Difficulty w/ Childcare or Family Care: No Living arrangements: with family Additional living arrangements comments: daughter Gender identity (if verbalized by the patient): Female Spiritual care concerns: No Exam 2 Narrative: GENERAL: well-nourished, and in no acute distress but appears unwell. HEAD: Normocephalic, atraumatic. EYES: Non injected, non icteric ENT: Nares clear, no rhinorrhea or epistaxis. Gross auditory acuity intact. NECK: Supple. No meningismus. CHEST: Speaking in full sentences. Mild tachypnea but No respiratory distress. NC in place, saturating appropriately. Diminished lung sounds right more so than left. HEART: Bradycardic rate and rhythm. ABDOMEN: Soft, nondistended. No rigidity or guarding. Not peritoneal EXTREMITIES: Normal range of motion. Bilateral Lower extremity edema, 1+. SKIN: Warm, dry. Dry skin on lower extremities. NEURO: No focal deficits. Alert and oriented. Answering questions. Following commands. Normal speech without aphasia or dysarthria. PSYCH: Congruent mood and affect. Course Vital Signs Vital signs: Vital Signs Temperature 98.1 F 04/07/25 03:40 Pulse Rate 51 L 04/07/25 03:40 Respiratory Rate 22 H 04/07/25 03:40 Blood Pressure 158/49 H 04/07/25 03:40 Pulse Oximetry 91 04/07/25 03:40 Oxygen Delivery Room Air 04/07/25 03:40 Temperature 103.0 F H 04/07/25 16:26 Pulse Rate 59 L 04/07/25 16:26 Respiratory Rate 25 H 04/07/25 16:26 Blood Pressure 180/49 H 04/07/25 16:26 Pulse Oximetry 92 04/07/25 16:26 Oxygen Delivery Nasal Cannula 04/07/25 16:00 Oxygen Flow Rate 2 04/07/25 16:00 [facility] Narrative Medical decision making narrative: Patient presents with shortness of breath as well as flu-like symptoms since Thursday. She did not receive flu shot this year and in fact believes she developed symptoms eating pumpkin bread prepared by someone had received the flu shot and had a cough. In the emergency department she is afebrile vital signs notable for bradycardia, mild tachypnea as well as hypoxia. SpO2 is 91% for which she is placed on supplemental oxygen via nasal cannula with improvement. Her blood pressure is notably with an elevated systolic blood pressure and a low diastolic blood pressure for mean arterial pressure of 85mmHg. CBC with mild thrombocytopenia which has intermittently been seen previously. No leukocytosis. Dimer >1. CT PE ordered. mild hyponatremia . Isolated AST elevation. Viral swab negative. BNP elevated with no prior for comparison. Possible new diagnosis. No previous Echo in EMR for review. Troponin is markedly elevated, had been normal when last assessed although that was years ago. She denies chest pain. EKG is abnormal as there is questionable atrial fibrillation but with P waves at times. She is already on anticoagulation. 3 hour troponin and aspirin are ordered. CT as below. Although no leukocytosis, given her age and CT read and new O2 requirement, will start antibiotics (ceftriaxone and azithromycin) - discussed in conjunction with Dr Hamilton who accepts patient. IMU given troponin. Code status had been discussed with patient with daughter at baseline. She confirms in the event of cardiopulmonary arrest she does not want chest compressions, defibrillation, or intubation performed and for this reason will be do not resuscitate. Blood cultures ordered. Lasix and echo also ordered. Differential Diagnosis Differential Diagnosis: Pneumonia, bronchitis ,acute versus acute on chronic failure , pleural effusion, pulmonary hypertension; acute viral syndrome Medical Records I have reviewed the following patient records and this information was taken into consideration when formulating the assessment and plan.: previous labs Lab Data MDM Lab Attestation statement: I personally reviewed the patient's lab results. 04/07/25 05:30 04/07/25 05:30 Labs: Lab Results 04/07/25 04/07/25 Range/Units 05:30 08:11 WBC 6.8 (4.5-10.0) K/mm3 RBC 4.06 L (4.2-5.4) M/mm3 Hgb 13.1 (12.0-15.0) g/dL Hct 38.7 (37.0-47.0) % MCV 95.3 (80-100) fl MCH 32.3 (26-34) pg MCHC 33.9 (32-36) g/dl RDW 14.2 (11.5-14.5) % Plt Count 140 L (150-375) k/mm3 MPV 12.5 H (7.4-10.4) fl Immature Gran % (Auto) 0.3 (0-0.5) % Neut % (Auto) 87.0 H (45.5-73.1) % Lymph % (Auto) 8.3 L (18.3-44.2) % Monroe % (Auto) 4.3 (2.6-8.5) % Eos % (Auto) 0.0 (0-4.4) % Baso % (Auto) 0.1 L (0.2-1.2) % Lymph # (Auto) 0.56 L (0.9-3.2) K/mm3 Monroe # (Auto) 0.3 (0.1-0.6) K/mm3 Eos # (Auto) 0.0 (0-0.3) K/mm3 Baso # (Auto) 0.0 (0.0-0.1) K/mm3 Abs Immat Gran (auto) 0.02 (0.00-0.031) K/mm3 Absolute Neuts (auto) 5.9 (1.3-6.7) K/mm3 Absolute Nucleated RBC 0.000 (0.0-0.012) K/mm3 Nucleated RBC % 0.0 (0.0-0.2) % D-Dimer 1.63 H (<0.48) ug/mL Sodium 133 L (137-145) mmol/L Potassium 3.8 (3.4-5.0) mmol/L Chloride 102 (98-107) mmol/L Carbon Dioxide 21 L (22-30) mmol/L Anion Gap 10 (4-12) mmol/L BUN 26 H (7-17) mg/dL Creatinine 0.73 (0.7-1.0) mg/dL Estim Creat Clear Calc Not Reportable Estimated GFR > 60 (59 - ) Glucose 117 H (65-110) mg/dL Calcium 8.6 (8.4-10.2) mg/dL Total Bilirubin 0.8 (0.2-1.3) mg/dL AST 42 H (14-36) U/L ALT 20 (6-35) U/L Alkaline Phosphatase 78 (38-126) U/L Troponin I 0.306 H* 0.333 H* (0.000-0.034) ng/mL NT-Pro-B Natriuret Pep 3160 H (19.9-100) pg/mL Total Protein 8.0 (6.3-8.2) g/dL Albumin 3.8 (3.5-5.1) g/dL Influenza A (RT-PCR) Negative (Negative) Influenza B (RT-PCR) Negative (Negative) RSV (RT-PCR) Negative (Negative) SARS-CoV-2 RNA (RT-PCR) Negative (Negative) Imaging Data Attestation: I personally reviewed and interpreted this imaging study as follows: My impression: Hazy opacities and right-sided pleural effusion Radiologist's impression: ITS Impressions Chest CTA 04/07/25 07:45 IMPRESSION: 1. No PE. 2. Large right pleural effusion. 3. Scattered foci of pneumonitis and/or airspace disease right lung. Chest X-Ray 04/07/25 08:23 IMPRESSION: 1. Right pleural effusion. 2. Scattered pneumonitis right lung. ECG Data EKG #1: Attestation: I personally reviewed and interpreted this ECG as follows: ECG completion date: 04/07/25 ECG completion time: 05:26 Interpretation: Pre populated EKG algorithm suggests atrial fibrillation with slow ventricular response at a rate of 54 beats per minute. This interpretation is unclear as the rate does appear at times irregular however most of the beats are regular and there are instead some premature/ aberrant complexes although otherwise with similar morphology. Similarly, there do appear to be some P-waves that preceded some QRS complexes others that do not. QRS 107. QT/ QTC 421/406. Does appear to be ST depression in V6 as well as V5. EKG #2: Attestation: I personally reviewed and interpreted this ECG as follows: ECG completion date: 04/07/25 ECG completion time: 08:12 Interpretation: Pre populated EKG algorithm suggests atrial fibrillation with slow ventricular response. The rate is 45 beats per minute and it appears irregular although again, there are times when it appears there is a P wave before QRS complex, though not consistently. QRS 94. QT/QTC 453/409. Discharge Plan Discharge Clinical Impression: Shortness of breath, Cough, Hypoxia, Hyponatremia, Elevated AST (SGOT), Acute heart failure, Non-ST elevation MS (NSTEMI), Pleural effusion on right, Abnormal ECG Patient Disposition: Still a Patient Condition: Stable Time of Disposition: 08:29
[2025-04-07] MEDS: IPRATROPIUM 0.5 MG/ALBUTEROL SULFATE 2.5 MG (BASE) AMPUL.NEB 3 ML INHALATION (05:14)
[2025-04-07 05:43] LABS: Hematocrit 38.7 % (37.0-47.0); Hemoglobin 13.1 g/dL (12.0-15.0); Immature Granulocyte Percent A 0.3 % (0-0.5); Lymphocytes Absolute Auto 0.56 K/mm3 (0.9-3.2); Mean Corpuscular HGB Conc 33.9 g/dl (32-36); Mean Corpuscular Hemoglobin 32.3 pg (26-34); Mean Corpuscular Volume 95.3 fl (80-100); Nucleated Red Blood Cells Absolute Auto 0.000 K/mm3 (0.0-0.012); Nucleated Red Blood Cells Perc 0.0 % (0.0-0.2); Platelet Count Result 140 k/mm3 (150-375); Red Blood Count 4.06 M/mm3 (4.2-5.4); White Blood Count 6.8 K/mm3 (4.5-10.0)
[2025-04-07 06:09] LABS: Alanine Aminotransferase 20 U/L (6-35); Albumin Level 3.8 g/dL (3.5-5.1); Alkaline Phosphatase 78 U/L (38-126); Anion Gap 10 mmol/L (4-12); Aspartate Amino Transferase 42 U/L (14-36); Bilirubin,Total 0.8 mg/dL (0.2-1.3); Blood Urea Nitrogen 26 mg/dL (7-17); Calcium 8.6 mg/dL (8.4-10.2); Carbon Dioxide 21 mmol/L (22-30); Chloride 102 mmol/L (98-107); Estimated Glomerular Filt Rate > 60; Glucose 117 mg/dL (65-110); Potassium 3.8 mmol/L (3.4-5.0); Sodium 133 mmol/L (137-145); Total Protein 8.0 g/dL (6.3-8.2)
[2025-04-07 06:19] LABS: Influenza A QL RT-PCR Negative (Negative); Influenza B QL RT-PCR Negative (Negative); RSV RNA, RT-PCR Negative (Negative); SARS-CoV-2 RNA PCR Negative (Negative)
[2025-04-07 06:28] LABS: NT Pro B Type Natriuretic Pept 3160 pg/mL (19.9-100); Troponin I 0.306 ng/mL (0.000-0.034)
[2025-04-07] MEDS: ASPIRIN 81 MG CHEWABLE TABLET 324 MG PO (07:06)
--- NOTE | 2025-04-07 08:08 | ECG_ITS ---
Test Date: 2025-04-07 08:12:52 Measurements Intervals Thayer Rate: 45 P: 0 NH: 0 QRS: -14 QRSD: 94 T: 18 QT: 453 QTc: 395 Interpretive Statements ATRIAL FIBRILLATION WITH SLOW VENTRICULAR RESPONSE BASELINE ARTIFACT- V5 ABNORMAL ECG Compared to ECG 04/07/2025 05:26:42 HEART RATE HAS DECREASED Electronically Signed On 04-07-2025 09:12:57 [employer] by Ernie Stoll D.O.
[2025-04-07 08:53] LABS: Troponin I 0.333 ng/mL (0.000-0.034)
[2025-04-07] MEDS: AZITHROMYCIN 500 MG TABLET PO (09:49)
[2025-04-07] MEDS: cefTRIAXone 1 GM in SODIUM CHLORIDE 0.9% IV 50 ML 100 ML IVPB (09:49)
[2025-04-07] MEDS: FUROSEMIDE INJ 40 MG/4 ML VIAL 20 MG IV PUSH (09:50)
--- NOTE | 2025-04-07 09:55 | WPCEDHO ---
ED Hand Off Checklist All vitals saved:yes IV Site documented:yes All med administrations documented:yes Triage Note Triage Note brought in by ems from home, 04/07/25 03:40 lives with daughter, has had flu like sx since Thursday Allergies No Known Allergies Allergy (Verified 10/08/19 22:16) Administered/Completed Medications Discontinued Medications Albuterol/Ipratropium (Ipratropium 0.5 Mg/Albuterol Sulfate 2.5 Mg (Base) Ampul.Neb 3 Ml) 3 ml INHALATION ONCE STA Stop: 04/07/25 04:54 Last Admin: 04/07/25 05:14 Dose: 3 ml Documented By: YUNI Aspirin (Aspirin 81 Mg Chewable Tablet) 324 mg PO ONCE STA Stop: 04/07/25 06:32 Last Admin: 04/07/25 07:06 Dose: 324 mg Documented By: FREDDY Azithromycin (Azithromycin 500 Mg Tablet) 500 mg PO ONCE STA Stop: 04/07/25 08:29 Last Admin: 04/07/25 09:49 Dose: 500 mg Documented By: ADAN Furosemide (Furosemide Inj 40 Mg/4 Ml Vial) 20 mg IV PUSH ONCE STA Stop: 04/07/25 08:31 Last Admin: 04/07/25 09:50 Dose: 20 mg Documented By: ADAN Ceftriaxone Sodium 1 gm/ (Sodium Chloride) 50 mls @ 100 mls/hr IVPB ONCE STA Stop: 04/07/25 08:57 Last Admin: 04/07/25 09:49 Dose: 100 mls/hr Documented By: ADAN Interventions/Assessments IV / Saline Lock, Insert Start: 04/07/25 03:28 Freq: Status: Active Protocol: Document 04/07/25 09:49 ADAN (Rec: 04/07/25 09:50 [facility] [id number]) IV Assessment Peripheral Access Left Hand IV Catheter Access Initiated Before Arrival IV Insertion Date 04/07/25 IV Insertion Time 06:30 Catheter Gauge 20 IV Site Assessment WNL IV Care and WNL Maintenance PA: Respiratory Assessment Start: 04/07/25 03:28 Freq: Status: Active Protocol: Document 04/07/25 03:45 SRW (Rec: 04/07/25 03:46 SRW [id number]) Respiratory Assessment Symptoms Congestion,Cough Last Vital Signs Temperature 99.2 F 04/07/25 08:10 Pulse Rate 44 L 04/07/25 09:52 Respiratory Rate 19 04/07/25 09:52 Pulse Oximetry 96 04/07/25 09:52 Blood Pressure 161/53 H 04/07/25 09:52 Blood Pressure Mean 89 04/07/25 09:52 Blood Pressure Position Sitting 04/07/25 09:52 Oxygen Delivery Room Air 04/07/25 03:40 Weight 90.2 kg 04/07/25 03:40 Last Result - Abnormals Only RBC 4.06 M/mm3 (4.2-5.4) L 04/07/25 05:30 Plt Count 140 k/mm3 (150-375) L 04/07/25 05:30 MPV 12.5 fl (7.4-10.4) H 04/07/25 05:30 Neut % (Auto) 87.0 % (45.5-73.1) H 04/07/25 05:30 Lymph % (Auto) 8.3 % (18.3-44.2) L 04/07/25 05:30 Baso % (Auto) 0.1 % (0.2-1.2) L 04/07/25 05:30 Lymph # (Auto) 0.56 K/mm3 (0.9-3.2) L 04/07/25 05:30 D-Dimer 1.63 ug/mL (<0.48) H 04/07/25 05:30 Sodium 133 mmol/L (137-145) L 04/07/25 05:30 Carbon Dioxide 21 mmol/L (22-30) L 04/07/25 05:30 BUN 26 mg/dL (7-17) H 04/07/25 05:30 Glucose 117 mg/dL (65-110) H 04/07/25 05:30 AST 42 U/L (14-36) H 04/07/25 05:30 Troponin I 0.333 ng/mL (0.000-0.034) H* 04/07/25 08:11 NT-Pro-B Natriuret Pep 3160 pg/mL (19.9-100) H 04/07/25 05:30 Most Recent Suicide Severity Rating Suicide Severity Rating NO RISK INDICATED 04/07/25 03:40
--- NOTE | 2025-04-07 10:40 | ADMGEN ---
This patient, Yanna Grey, was admitted to IMU Room 201-01 at 1025. Patient/family oriented to hospital policies and general routines including ID bracelet, bed and alarms, visiting hours, pain management, procedures, bathroom and other care routines, personal items, smoking policy, room service/diet, and visiting hours. Information on how to activate the Rapid Response Team has been discussed. Patient/Family are encouraged to report perceived risks to care and to ask questions if they do not understand what they are told or what they should do.
--- NOTE | 2025-04-07 12:51 | PM.IMHP2 ---
H&P: HPI History of Present Illness Date/Time: 04/07/25 12:51 Chief Complaint: Fever and cough Narrative: 84-year-old female past medical history of DVT benign lung tumor presented to the ER on account of fever and cough. Reported symptoms has been going on for the past 5 days and worsening. It generalized weakness and poor appetite. No oxygen at baseline now requiring 4 L. Chest pain, no diarrhea focal symptoms. Emergency room evaluation notable for blood pressure 161/53, pulse 44, respiratory rate 19 saturating 96% on 4 L oxygen. Labs notable elevated troponin. CT chest showed moderately large right-sided pleural effusion with opacities. Started on Rocephin and azithromycin prior to admission. Review of Systems Review of Systems: All other systems reviewed and negative except as noted in the history above. [facility] Past Medical History Medical History (Updated 04/07/25 @ 08:08 by Patricia Hirsch MD) Lung mass Brain tumor First degree AV block DVT (deep venous thrombosis) Family History Family History (Updated 04/07/25 @ 11:27 by Christie Corbin RN) Mother Heart attack Father Heart attack Sibling Pacemaker Social History Social History Smoking status: Never smoker Second hand tobacco smoke exposure: Yes Alcohol intake: former Substance use: never Substance use type: does not use Other substance usage details: DRANK A HALF CAN OF CARO AT NIGHT BUT DOES NOT ANYMORE Last use: Lack of Transportation: No Lack of Food: Never True Current Housing: I Have Housing Concerned About Future Housing: No Difficulty Paying Gas/Electric Bills: No Difficulty Paying for Meds: No Currently Unemployed: No Education: Bachelor's Degree Difficulty w/ Childcare or Family Care: No Gender identity (if verbalized by the patient): Female Spiritual care concerns: No Meds Home Medications and Allergies Allergies Allergy/AdvReac Type Severity Reaction Status Date / Time poison urban extract Allergy Mild ITCH Verified 04/07/25 11:22 Vital Signs Vital Signs - 24 hr 04/07/25 03:40 04/07/25 05:15 04/07/25 05:27 Temperature 98.1 F Pulse Rate 51 L 53 L 49 L Respiratory Rate 22 H 20 20 Blood Pressure 158/49 H Pulse Oximetry 91 Oxygen Delivery Room Air 04/07/25 07:07 04/07/25 08:10 04/07/25 09:21 Temperature 99.2 F Pulse Rate 52 L 50 L 42 L Respiratory Rate 18 20 18 Blood Pressure 157/52 H 139/50 L Pulse Oximetry 91 99 96 Oxygen Delivery 04/07/25 09:52 Temperature Pulse Rate 44 L Respiratory Rate 19 Blood Pressure 161/53 H Pulse Oximetry 96 Oxygen Delivery Exam Narrative: General: alert and comfortable Eyes: EOMI, PERRLA ENNT External ears normal, Neck is supple, no masses, Respiratory systems: Clear to auscultation Cardiovascular S1, S2, normal rhythm, no murmur, rub, or gallop; no thrill or palpable murmurs on palpation. Gastrointestinal: soft, non-tender, and non-distended abdomen with no masses; BS present Skin: no rash, lesions, ulcerations, subcutaneous nodules or induration Musculoskeletal: Bilateral nonpitting edema Neurologic: Alert and oriented x3, non focal Mental Status Exam: normal affect Results Labs Labs: Short CBC 04/07/25 Range/Units 05:30 WBC 6.8 (4.5-10.0) K/mm3 Hgb 13.1 (12.0-15.0) g/dL Hct 38.7 (37.0-47.0) % Plt Count 140 L (150-375) k/mm3 BMP 04/07/25 05:30 Sodium 133 L Potassium 3.8 Chloride 102 Carbon Dioxide 21 L BUN 26 H Creatinine 0.73 Glucose 117 H Calcium 8.6 Cardiac Enzymes 04/07/25 04/07/25 Range/Units 05:30 08:11 Troponin I 0.306 H* 0.333 H* (0.000-0.034) ng/mL Liver Function 04/07/25 Range/Units 05:30 Total Bilirubin 0.8 (0.2-1.3) mg/dL AST 42 H (14-36) U/L ALT 20 (6-35) U/L Alkaline Phosphatase 78 (38-126) U/L Albumin 3.8 (3.5-5.1) g/dL Assessment and Plan Assessment and plan (1) Hypoxia: Code(s): R09.02 - Hypoxemia Status: Acute Plan Acute hypoxemic respiratory failure From pneumonia On 4 liters, baseline on room air titrate with clinical course Pneumonia CT Chest showed large pleural effusion with opacities thoracentesis ordered with fluid studies Zosyn and Azithromycin Monitor cultures DVT restart home anticoagulation once reconciled DVT prophylaxis on Sq Lovenox, restart home meds once reconciled Full code SDM: Ana Inocencio, Daughter Hospitalist [facility] Advance Care Plan I have confirmed that the patient's Advanced Care Plan is present, code status is documented, or surrogate decision maker is listed in patient medical record.: Yes Medication Reconciliation I have utilized all available resources to obtain, update and review the patients current medications (includes all prescriptions, OTC, herbals, cannabis, and nutritional supplements).: Yes
--- NOTE | 2025-04-07 13:34 | PC.NURSE ---
patient voided and had 260 ml of residual urine on a bladder scan. Dr Hamilton made aware. New orders for a straight cath given. Patien refused and Dr Hamilton was made aware. Patient also stated she does not want a disla catheter. No new orders at this time
--- NOTE | 2025-04-07 14:29 | PM.CNCAR ---
Assessment and Plan Assessment and plan (1) Atrial fibrillation: Code(s): I48.91 - Unspecified atrial fibrillation Status: Acute Plan 84-year-old lady with minimally elevated troponin level which was drawn for some reason that I do not understand. There was no clinical complaints or ECG evidence to suggest an acute coronary event. Her history is largely unknown to us here at [facility] she does not receive her care here. Her son seems to remember she is anticoagulated with Xarelto. This could of course be because of atrial fibrillation. She clearly has significant lower extremity edema with skin changes that indicate this is a chronic issue. An echocardiogram is being done in shortly which has been ordered by the hospitalist. It will be my impression that the principal problem is right lung pneumonia for which she has already been started on antibiotics. It is important that we compile an accurate list of her home medications and if she is on Xarelto that should be resumed because of her atrial fibrillation. I do not have any other records and she is not a good historian at all regarding the details of her medical history. Her son seems to indicate that cardiology consultation was advised about 3-5 years ago which she declined as she did not wish any aggressive cardiovascular care. I will follow-up after her echocardiogram has been performed and when we have an accurate list of home medications. Once again if she is anticoagulated I would resume that once we know the details. Vj Patrick MD [facility] History of Present Illness History of Present Illness Consult date/time: 04/07/25 14:29 Reason For Visit: New hypoxia, Pleural effusion, NSTEMI, Heart failu Narrative: This is 84-year-old woman I am seeing at the request of the hospitalist because of troponin elevation. The patient is a elderly woman who is a very poor historian regarding her medical history or the reason she is here. Her son who is in the room with her provides some useful history as well. He says that she has been feeling poorly for 3-5 days with symptoms of a cough sometimes productive of thick mucoid sputum and coughing and a fever. They can not really tell me how high her temperature was at home in the on the floor here she appears to be afebrile. Her evaluation in the emergency room appears to show evidence of right lung pneumonia with pneumonic infiltrates and a right pleural effusion. Her complaints did not include any sense of chest pain or pressure her electrocardiogram shows atrial fibrillation with a slow ventricular response no acute injury or ischemia. For some reason troponin levels were done and they are elevated at 0.3 and flat. An echocardiogram has been ordered which has yet to be performed. The patient's son indicates that she has a history of a lower extremity DVT about 10 years ago and a history of some sort of what he understands as heart block for which in the past a pacemaker implant was discussed with her who is mother which she declined. Consultation with the clerk specialist was apparently recommended by the primary physician which she also declined. She does not offer any other cardiac complaints her code status is DNR. Her lab data does not show any evidence of a leukocytosis nor of renal insufficiency. In this setting I am seeing her in consultation. Review of Systems Review of Systems: ROS unobtainable: Yes unobtainable due to medical condition [facility] Past Medical History Medical History (Updated 04/07/25 @ 14:36 by Vj Patrick MD) Lung mass Brain tumor First degree AV block DVT (deep venous thrombosis) Family History Family History (Updated 04/07/25 @ 11:27 by Christie Corbin RN) Mother Heart attack Father Heart attack Sibling Pacemaker Social History Social History Smoking status: Never smoker Second hand tobacco smoke exposure: Yes Alcohol intake: former Substance use: never Substance use type: does not use Other substance usage details: DRANK A HALF CAN OF CARO AT NIGHT BUT DOES NOT ANYMORE Last use: Lack of Transportation: No Lack of Food: Never True Current Housing: I Have Housing Concerned About Future Housing: No Difficulty Paying Gas/Electric Bills: No Difficulty Paying for Meds: No Currently Unemployed: No Education: Bachelor's Degree Difficulty w/ Childcare or Family Care: No Gender identity (if verbalized by the patient): Female Spiritual care concerns: No Meds Home Medications and Allergies Allergies Allergy/AdvReac Type Severity Reaction Status Date / Time poison urban extract Allergy Mild ITCH Verified 04/07/25 11:22 Vital Signs Vital Signs - 24 hr 04/07/25 03:40 04/07/25 05:15 04/07/25 05:27 Temperature 36.7 C Pulse Rate 51 L 53 L 49 L Respiratory Rate 22 H 20 20 Blood Pressure 158/49 H Pulse Oximetry 91 Oxygen Delivery Room Air 04/07/25 07:07 04/07/25 08:10 04/07/25 09:21 Temperature 37.3 C Pulse Rate 52 L 50 L 42 L Respiratory Rate 18 20 18 Blood Pressure 157/52 H 139/50 L Pulse Oximetry 91 99 96 Oxygen Delivery 04/07/25 09:52 04/07/25 12:00 Temperature Pulse Rate 44 L Respiratory Rate 19 Blood Pressure 161/53 H Pulse Oximetry 96 Oxygen Delivery Room Air Exam Const: Other: Uncomfortable white female appearing her stated age coughing when I came in the room to see her. HENMT: Mouth: Yes moist mucous membranes Eyes: Sclera: sclerae normal Neck: Neck: supple and no JVD Resp: Other: Coarse breath sounds are noted bilaterally worse on the right Cardio: Rate: regular rate Other: Soft systolic murmur audible at the left sternal border without radiation GI: GI Palp: Yes Soft to palpation Auscultation: normal bowel sounds Skin: General skin exam: normal color Neuro: Other: Alert and responsive at least to self and location Extrem: Other: Chronic lower extremity edema moderate to severe with changes of chronic venous stasis Results Labs and Meds 04/07/25 05:30 04/07/25 05:30 Lab results: Cardiac Enzymes 04/07/25 04/07/25 Range/Units 05:30 08:11 AST 42 H (14-36) U/L Troponin I 0.306 H* 0.333 H* (0.000-0.034) ng/mL CBC 04/07/25 Range/Units 05:30 WBC 6.8 (4.5-10.0) K/mm3 RBC 4.06 L (4.2-5.4) M/mm3 Hgb 13.1 (12.0-15.0) g/dL Hct 38.7 (37.0-47.0) % Plt Count 140 L (150-375) k/mm3 Lymph # (Auto) 0.56 L (0.9-3.2) K/mm3 [place] # (Auto) 0.3 (0.1-0.6) K/mm3 Eos # (Auto) 0.0 (0-0.3) K/mm3 Baso # (Auto) 0.0 (0.0-0.1) K/mm3 Comprehensive Metabolic Panel 04/07/25 Range/Units 05:30 Sodium 133 L (137-145) mmol/L Potassium 3.8 (3.4-5.0) mmol/L Chloride 102 (98-107) mmol/L Carbon Dioxide 21 L (22-30) mmol/L BUN 26 H (7-17) mg/dL Creatinine 0.73 (0.7-1.0) mg/dL Glucose 117 H (65-110) mg/dL Calcium 8.6 (8.4-10.2) mg/dL AST 42 H (14-36) U/L ALT 20 (6-35) U/L Alkaline Phosphatase 78 (38-126) U/L Total Protein 8.0 (6.3-8.2) g/dL Albumin 3.8 (3.5-5.1) g/dL Intake and Output 04/06/25 04/07/25 04/07/25 23:59 07:59 15:59 Intake Total 550 Balance 550 Intake: IV 50 cefTRIAXone 1 gm In Sodium 50 Chloride 0.9% IV 50 ml @ 100 mls/hr IVPB ONCE STA Rx#: [id number] Oral 500 Patient Weight 04/07/25 23:59 Weight 86.3 kg
--- NOTE | 2025-04-07 14:31 | PCSTNOTE ---
Patient initially has communication order in place but after speaking to Dr. Johnson it was recommended this be adjusted to BSE. Attempted evaluation but patient in procedure for next 45 minutes. Patient noted to be coughing (not due to any oral intake).
[2025-04-07] MEDS: PERFLUTREN LIPID MICROSPHERES 1.5 ML VIAL DILUTED TO 10 ML TOTAL VOLUME IV PUSH (15:00)
--- NOTE | 2025-04-07 15:22 | IVDEFINITY ---
Prior to administration of IV Definity the patient was educated on the risks and benefits of the imaging enhancing agent including potential adverse side effects. The patient verbalized understanding. Allergies were verified. No exclusion criteria were identified and at least one of the following inclusion criteria were met: 1) physician request, 2) patient technically difficult to image (per the [place] [employer]ocardi[employer] guidelines of two or more segments not discernable within the apical view), or 3) questionable left ventricular function. ?
[2025-04-07] MEDS: PIPERACILLIN/TAZOBACTAM SOD 4.5 GM in SODIUM CHLORIDE 0.9% IV 100 ML 200 ML IVPB ×2 (15:41→23:09)
[2025-04-07] MEDS: ENOXAPARIN 40 MG/0.4 ML SYRINGE SUB-Q (15:42)
[2025-04-07] MEDS: AZITHROMYCIN IV 500 MG in SODIUM CHLORIDE 0.9% IV 250 ML IVPB (15:42)
--- NOTE | 2025-04-07 15:47 | PCSTNOTE ---
Please refer to the Bedside Swallow Evaluation in the EMR. Please note, silent aspiration cannot be ruled out at bedside.
[2025-04-07] MEDS: ACETAMINOPHEN 325 MG TABLET 650 MG PO (16:05)
--- NOTE | 2025-04-07 16:17 | PC.NURSE ---
patient stated she does not know if she wants to consent to the thoracentesis. Patient educated on risks and benefits. Dr Hamilton made aware and also made aware of the fever and bp. new orders given for the bp.
[2025-04-08] VITALS (18 sets, daily range): BP systolic 95–181; BP diastolic 43–84; PULSE 44–71; RESP 16–26; TEMP 36.8–39.3; O2SAT 94–99
[2025-04-08] MEDS: ACETAMINOPHEN 325 MG TABLET 650 MG PO ×2 (00:18→10:50)
[2025-04-08 04:54] LABS: Hematocrit 37.7 % (37.0-47.0); Hemoglobin 12.5 g/dL (12.0-15.0); Immature Granulocyte Percent A 0.5 % (0-0.5); Immature Platelet Fraction Pct 11.3 % (0.9-11.2); Lymphocytes Absolute Auto 0.78 K/mm3 (0.9-3.2); Mean Corpuscular HGB Conc 33.2 g/dl (32-36); Mean Corpuscular Hemoglobin 32.2 pg (26-34); Mean Corpuscular Volume 97.2 fl (80-100); Nucleated Red Blood Cells Absolute Auto 0.000 K/mm3 (0.0-0.012); Nucleated Red Blood Cells Perc 0.0 % (0.0-0.2); Platelet Count Result 121 k/mm3 (150-375); Red Blood Count 3.88 M/mm3 (4.2-5.4); White Blood Count 5.7 K/mm3 (4.5-10.0)
[2025-04-08 05:09] LABS: Alanine Aminotransferase 17 U/L (6-35); Albumin Level 3.4 g/dL (3.5-5.1); Alkaline Phosphatase 65 U/L (38-126); Anion Gap 6 mmol/L (4-12); Aspartate Amino Transferase 44 U/L (14-36); Bilirubin,Total 0.8 mg/dL (0.2-1.3); Blood Urea Nitrogen 26 mg/dL (7-17); Calcium 8.3 mg/dL (8.4-10.2); Carbon Dioxide 29 mmol/L (22-30); Chloride 101 mmol/L (98-107); Estimated CRCL calculation 37 ml/min; Estimated Glomerular Filt Rate 47; Glucose 115 mg/dL (65-110); Magnesium 1.8 mg/dL (1.6-2.3); Potassium 3.5 mmol/L (3.4-5.0); Sodium 136 mmol/L (137-145); Total Protein 7.2 g/dL (6.3-8.2)
[2025-04-08] MEDS: PIPERACILLIN/TAZOBACTAM SOD 4.5 GM in SODIUM CHLORIDE 0.9% IV 100 ML 200 ML IVPB ×4 (05:41→23:28)
--- NOTE | 2025-04-08 07:38 | P.PNIM_ITS ---
Assessment and Plan Assessment and Plan (1) Hypoxia: Code(s): R09.02 - Hypoxemia Status: Acute Plan Acute hypoxemic respiratory failure From pneumonia On 4 liters, baseline on room air titrate with clinical course Thoracentesis ordered Pneumonia CT Chest showed large pleural effusion with opacities thoracentesis ordered with fluid studies Zosyn and Azithromycin Monitor cultures added mucinex to air with secretion Leg edema she is on 20 mg lasix at home received IV lasiix in ed she has 3+ edema, will add IV lasix 40 mg daily for now monitor closely and downgrade to po as indicated/once edema is improved added K supplements as well cardiology following DVT restart home anticoagulation once reconciled DVT prophylaxis on Sq Lovenox- stopped today 04/08 as home med-xarelto restarted Full code SDM: Ana Painter, Daughter Subjective Date/time seen: 04/08/25 07:38 Interval history: 84-year-old female past medical history of DVT, benign lung tumor presented to the ER on account of fever and cough. Reported symptoms has been going on for the past 5 days and worsening. It generalized weakness and poor appetite. No oxygen at baseline now requiring 4 L. Chest pain, no diarrhea focal symptoms. Emergency room evaluation notable for blood pressure 161/53, pulse 44, respi ratory rate 19 saturating 96% on 4 L oxygen. Labs notable elevated troponin. CT chest showed moderately large right-sided pleural effusion with opacities. Started on Rocephin and azithromycin prior to admission. 04/08 pt is seen and examined during morning rounds. Cardiology was consulted. Pt is on IV antibiotics. Xarelto is restarted. She is alert, poor histroian. Reports cough and congestion. c/o leg swelling. Review of Systems Review of Systems: All other systems reviewed and negative except as noted in the history above. Exam Narrative: General: alert and comfortable Eyes: EOMI, PERRLA ENNT External ears normal, Neck is supple, no masses, Respiratory systems: Clear to auscultation Cardiovascular S1, S2, normal rhythm, no murmur, rub, or gallop; no thrill or palpable murmurs on palpation. Gastrointestinal: soft, non-tender, and non-distended abdomen with no masses; BS present Skin: no rash, lesions, ulcerations, subcutaneous nodules or induration Musculoskeletal: Bilateral edema Neurologic: Alert and oriented x3, non focal Mental Status Exam: normal affect Objective Data Vital Signs Vital Signs: Vital Signs - 24 hr 04/07/25 08:10 04/07/25 09:21 04/07/25 09:52 Temperature 99.2 F Pulse Rate 50 L 42 L 44 L Respiratory Rate 20 18 19 Blood Pressure 157/52 H 139/50 L 161/53 H Pulse Oximetry 99 96 96 Oxygen Delivery Oxygen Flow Rate Fraction of Inspired Oxygen 04/07/25 12:00 04/07/25 12:00 04/07/25 14:00 Temperature Pulse Rate 63 66 Respiratory Rate Blood Pressure Pulse Oximetry Oxygen Delivery Room Air Oxygen Flow Rate Fraction of Inspired Oxygen 04/07/25 16:00 04/07/25 16:00 04/07/25 16:05 Temperature 103 F H Pulse Rate 70 Respiratory Rate Blood Pressure Pulse Oximetry 90 Oxygen Delivery Nasal Cannula Oxygen Flow Rate 2 Fraction of Inspired Oxygen 04/07/25 16:26 04/07/25 17:00 04/07/25 18:00 Temperature 103.0 F H 99.4 F Pulse Rate 59 L 58 L Respiratory Rate 25 H Blood Pressure 180/49 H 160/70 H Pulse Oximetry 92 Oxygen Delivery Oxygen Flow Rate Fraction of Inspired Oxygen 04/07/25 18:34 04/07/25 19:57 04/07/25 20:00 Temperature 99.4 F 98.2 F Pulse Rate 55 L 60 Respiratory Rate 20 20 Blood Pressure 118/45 L Pulse Oximetry 96 99 Oxygen Delivery Nasal Cannula Oxygen Flow Rate 2 Fraction of Inspired Oxygen 28 04/07/25 20:00 04/07/25 20:00 04/07/25 22:00 Temperature Pulse Rate 56 L 60 Respiratory Rate Blood Pressure Pulse Oximetry 95 Oxygen Delivery Nasal Cannula Oxygen Flow Rate 2 Fraction of Inspired Oxygen 04/07/25 23:42 04/08/25 00:00 04/08/25 00:00 Temperature 102.8 F H Pulse Rate 66 71 Respiratory Rate 16 Blood Pressure 152/73 H Pulse Oximetry 95 96 Oxygen Delivery Nasal Cannula Oxygen Flow Rate 2 Fraction of Inspired Oxygen 04/08/25 00:18 04/08/25 01:12 04/08/25 02:00 Temperature 102.8 F H 100.4 F H Pulse Rate 47 L Respiratory Rate Blood Pressure Pulse Oximetry Oxygen Delivery Oxygen Flow Rate Fraction of Inspired Oxygen 04/08/25 04:00 04/08/25 04:00 04/08/25 04:00 Temperature 98.2 F Pulse Rate 54 L 44 L Respiratory Rate 18 Blood Pressure 119/43 L Pulse Oximetry 97 97 Oxygen Delivery Nasal Cannula Oxygen Flow Rate 2 Fraction of Inspired Oxygen 04/08/25 06:00 Temperature Pulse Rate 47 L Respiratory Rate Blood Pressure Pulse Oximetry Oxygen Delivery Oxygen Flow Rate Fraction of Inspired Oxygen Intake/Output Intake/Output: Intake & Output 04/05/25 04/06/25 04/07/25 04/08/25 23:59 23:59 23:59 23:59 Intake Total 900 450 Output Total 700 Balance 900 -250 Meds/Results Medications: Active Medications Generic Name Dose Route Start Last Admin Trade Name Freq PRN Reason Stop Dose Admin Acetaminophen 650 mg 04/07/25 08:29 04/08/25 00:18 Acetaminophen 325 Mg Tablet PO 650 mg Q4H PRN Administration Mild Pain (1-3) or Fever Enoxaparin Sodium 40 mg 04/07/25 13:25 04/07/25 15:42 Enoxaparin 40 Mg/0.4 Ml Syringe SUB-Q 40 mg DAILY WHITLEY Administration Hydralazine HCl 10 mg 04/07/25 16:12 04/07/25 16:22 Hydralazine Hcl 20 Mg/Ml Vial IV PUSH 10 mg Q4H PRN Administration Blood Pressure systolic>160 Piperacillin Sod/Tazobactam 100 mls @ 200 mls/hr 04/07/25 12:50 04/08/25 06:35 Sod 4.5 gm/ Sodium Chloride IVPB Infused Q6HR WHITLEY Infusion Azithromycin 500 mg/ Sodium 250 mls @ 250 mls/hr 04/07/25 14:00 04/07/25 18:35 Chloride IVPB Infused Q24H WHITLEY Infusion Ondansetron HCl 4 mg 04/07/25 08:29 Ondansetron Inj 4 Mg/2 Ml Vial IV PUSH Q4H PRN Nausea Rivaroxaban 20 mg 04/08/25 18:00 Rivaroxaban 20 Mg Tablet PO QPM [facility] Radiology Results: ITS Impressions Chest CTA 04/07/25 07:45 IMPRESSION: 1. No PE. 2. Large right pleural effusion. 3. Scattered foci of pneumonitis and/or airspace disease right lung. Chest X-Ray 04/07/25 08:23 IMPRESSION: 1. Right pleural effusion. 2. Scattered pneumonitis right lung. Labs Labs: Laboratory Results - last 24 hr 04/07/25 04/08/25 08:11 03:51 WBC 5.7 RBC 3.88 L Hgb 12.5 Hct 37.7 MCV 97.2 MCH 32.2 MCHC 33.2 RDW 14.6 H Plt Count 121 L MPV 13.5 H Immature Gran % (Auto) 0.5 Neut % (Auto) 81.0 H Lymph % (Auto) 13.7 L [place] % (Auto) 4.6 Eos % (Auto) 0.0 Baso % (Auto) 0.2 Lymph # (Auto) 0.78 L [place] # (Auto) 0.3 Eos # (Auto) 0.0 Baso # (Auto) 0.0 Abs Immat Gran (auto) 0.03 Absolute Neuts (auto) 4.6 Absolute Nucleated RBC 0.000 Nucleated RBC % 0.0 % Immature Plt Fraction 11.3 H Sodium 136 L Potassium 3.5 Chloride 101 Carbon Dioxide 29 Anion Gap 6 BUN 26 H Creatinine 1.10 H Estim Creat Clear Calc 37 Estimated GFR 47 L Glucose 115 H Calcium 8.3 L Magnesium 1.8 Total Bilirubin 0.8 AST 44 H ALT 17 Alkaline Phosphatase 65 Troponin I 0.333 H* Total Protein 7.2 Albumin 3.4 L
--- NOTE | 2025-04-08 09:38 | PM.PNCARD ---
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 She receives her health care elsewhere we do not have records of her previous care at this hospital. She enters the hospital with cough fever, evidence of pneumonia in the right lung. I do not believe this is primarily a cardiac problem. Her atrial fibrillation by history seems to be chronic anticoagulation has been resumed. Vj Patrick MD [facility] Subjective Date/time seen: Date of service: 04/08/25 09:38 Interval history: Follow-up visit in this 84-year-old lady with: Appears to have chronic atrial fibrillation with slow ventricular response and has been restarted on anticoagulation with Xarelto. Patient is admitted with clinical diagnosis of community acquired pneumonia. She is on appropriate antibiotics and resting comfortably today. Voices no cardiovascular complaints at this time Exam Const: General: comfortable and no acute distress Other: Elderly white female resting comfortably in bed HENMT: Face/Nose/Sinus: Normal nares present Eyes: Sclera: sclerae normal Neck: Neck: supple and no JVD Resp: Effort & Inspection: normal respiratory effort Other: Central coarse rhonchi are still noted no wheezing no rales Cardio: Rate: regular rate Rhythm: abnormal rhythm irregularly irregular GI: GI Palp: Yes Soft to palpation Skin: General skin exam: normal color Neuro: Other: Arousable, oriented to self Extrem: Other: Adequate perfusion, changes of chronic venous insufficiency noted Objective Data Vital Signs Vital Signs: Vital Signs - 24 hr 04/07/25 09:52 04/07/25 12:00 04/07/25 12:00 Temperature Pulse Rate 44 L 63 Respiratory Rate 19 Blood Pressure 161/53 H Pulse Oximetry 96 Oxygen Delivery Room Air Oxygen Flow Rate Fraction of Inspired Oxygen 04/07/25 14:00 04/07/25 16:00 04/07/25 16:00 Temperature Pulse Rate 66 70 Respiratory Rate Blood Pressure Pulse Oximetry 90 Oxygen Delivery Nasal Cannula Oxygen Flow Rate 2 Fraction of Inspired Oxygen 04/07/25 16:05 04/07/25 16:26 04/07/25 17:00 Temperature 39.4 C H 39.4 C H 37.4 C Pulse Rate 59 L Respiratory Rate 25 H Blood Pressure 180/49 H 160/70 H Pulse Oximetry 92 Oxygen Delivery Oxygen Flow Rate Fraction of Inspired Oxygen 04/07/25 18:00 04/07/25 18:34 04/07/25 19:57 Temperature 37.4 C Pulse Rate 58 L 55 L Respiratory Rate 20 Blood Pressure Pulse Oximetry 96 Oxygen Delivery Nasal Cannula Oxygen Flow Rate 2 Fraction of Inspired Oxygen 28 04/07/25 20:00 04/07/25 20:00 04/07/25 20:00 Temperature 36.8 C Pulse Rate 60 56 L Respiratory Rate 20 Blood Pressure 118/45 L Pulse Oximetry 99 95 Oxygen Delivery Nasal Cannula Oxygen Flow Rate 2 Fraction of Inspired Oxygen 04/07/25 22:00 04/07/25 23:42 04/08/25 00:00 Temperature 39.3 C H Pulse Rate 60 66 Respiratory Rate 16 Blood Pressure 152/73 H Pulse Oximetry 95 96 Oxygen Delivery Nasal Cannula Oxygen Flow Rate 2 Fraction of Inspired Oxygen 04/08/25 00:00 04/08/25 00:18 04/08/25 01:12 Temperature 39.3 C H 38.0 C H Pulse Rate 71 Respiratory Rate Blood Pressure Pulse Oximetry Oxygen Delivery Oxygen Flow Rate Fraction of Inspired Oxygen 04/08/25 02:00 04/08/25 04:00 04/08/25 04:00 Temperature 36.8 C Pulse Rate 47 L 54 L Respiratory Rate 18 Blood Pressure 119/43 L Pulse Oximetry 97 97 Oxygen Delivery Nasal Cannula Oxygen Flow Rate 2 Fraction of Inspired Oxygen 04/08/25 04:00 04/08/25 06:00 04/08/25 08:10 Temperature 36.9 C Pulse Rate 44 L 47 L 58 L Respiratory Rate 24 H Blood Pressure 95/65 L Pulse Oximetry 95 Oxygen Delivery Oxygen Flow Rate Fraction of Inspired Oxygen Intake/Output Intake/Output: Intake & Output 04/05/25 04/06/25 04/07/25 04/08/25 23:59 23:59 23:59 23:59 Intake Total 900 690 Output Total 700 Balance 900 -10 Meds/Results Medications: Active Medications Generic Name Dose Route Start Last Admin Trade Name Freq PRN Reason Stop Dose Admin Acetaminophen 650 mg 04/07/25 08:29 04/08/25 08:50 Acetaminophen 325 Mg Tablet PO 650 mg Q4H PRN Administration Mild Pain (1-3) or Fever Hydralazine HCl 10 mg 04/07/25 16:12 04/07/25 16:22 Hydralazine Hcl 20 Mg/Ml Vial IV PUSH 10 mg Q4H PRN Administration Blood Pressure systolic>160 Piperacillin Sod/Tazobactam 100 mls @ 200 mls/hr 04/07/25 12:50 04/08/25 06:35 Sod 4.5 gm/ Sodium Chloride IVPB Infused Q6HR WHITLEY Infusion Azithromycin 500 mg/ Sodium 250 mls @ 250 mls/hr 04/07/25 14:00 04/07/25 18:35 Chloride IVPB Infused Q24H WHITLEY Infusion Ondansetron HCl 4 mg 04/07/25 08:29 Ondansetron Inj 4 Mg/2 Ml Vial IV PUSH Q4H PRN Nausea Rivaroxaban 20 mg 04/08/25 18:00 Rivaroxaban 20 Mg Tablet PO QPM [facility] Radiology Results: ITS Impressions Chest CTA 04/07/25 07:45 IMPRESSION: 1. No PE. 2. Large right pleural effusion. 3. Scattered foci of pneumonitis and/or airspace disease right lung. Chest X-Ray 04/07/25 08:23 IMPRESSION: 1. Right pleural effusion. 2. Scattered pneumonitis right lung. Labs Labs: Laboratory Results - last 24 hr 04/08/25 03:51 WBC 5.7 RBC 3.88 L Hgb 12.5 Hct 37.7 MCV 97.2 MCH 32.2 MCHC 33.2 RDW 14.6 H Plt Count 121 L MPV 13.5 H Immature Gran % (Auto) 0.5 Neut % (Auto) 81.0 H Lymph % (Auto) 13.7 L [place] % (Auto) 4.6 Eos % (Auto) 0.0 Baso % (Auto) 0.2 Lymph # (Auto) 0.78 L [place] # (Auto) 0.3 Eos # (Auto) 0.0 Baso # (Auto) 0.0 Abs Immat Gran (auto) 0.03 Absolute Neuts (auto) 4.6 Absolute Nucleated RBC 0.000 Nucleated RBC % 0.0 % Immature Plt Fraction 11.3 H Sodium 136 L Potassium 3.5 Chloride 101 Carbon Dioxide 29 Anion Gap 6 BUN 26 H Creatinine 1.10 H Estim Creat Clear Calc 37 Estimated GFR 47 L Glucose 115 H Calcium 8.3 L Magnesium 1.8 Total Bilirubin 0.8 AST 44 H ALT 17 Alkaline Phosphatase 65 Total Protein 7.2 Albumin 3.4 L
[2025-04-08] MEDS: FUROSEMIDE INJ 40 MG/4 ML VIAL IV PUSH (12:58)
[2025-04-08] MEDS: AZITHROMYCIN IV 500 MG in SODIUM CHLORIDE 0.9% IV 250 ML IVPB (12:59)
[2025-04-08] MEDS: POTASSIUM CHLORIDE 20 MEQ ER TABLET 40 MEQ PO (18:00)
[2025-04-08] MEDS: RIVAROXABAN 20 MG TABLET PO (18:00)
[2025-04-09] VITALS (17 sets, daily range): BP systolic 152–182; BP diastolic 46–65; PULSE 45–66; RESP 16–32; TEMP 36.6–37.9; O2SAT 91–100
[2025-04-09] MEDS: PIPERACILLIN/TAZOBACTAM SOD 4.5 GM in SODIUM CHLORIDE 0.9% IV 100 ML 200 ML IVPB ×3 (06:44→21:01)
--- NOTE | 2025-04-09 09:36 | PM.IMPN2 ---
Assessment and Plan Assessment and Plan (1) Hypoxia: Code(s): R09.02 - Hypoxemia Status: Acute Plan 84-year-old female past medical history of DVT, benign lung tumor presented to the ER on account of fever and cough. Reported symptoms has been going on for the past 5 days and worsening. It generalized weakness and poor appetite. No oxygen at baseline now requiring 4 L. Chest pain, no diarrhea focal symptoms. Emergency room evaluation notable for blood pressure 161/53, pulse 44, respiratory rate 19 saturating 96% on 4 L oxygen. Labs notable elevated troponin. CT chest showed moderately large right-sided pleural effusion with opacities. Unchanged pleural-based nodular consolidative focus right lateral base; no change for 4 years strongly suggests benign. A few scattered granulomata unchanged. Bibasilar scarring. Started on Rocephin and azithromycin. She is alert, poor historian, with circular reasoning. Reports cough and congestion. c/o leg swelling. Acute hypoxemic respiratory failure Likely pneumonia On 4 liters, baseline on room air titrate with clinical course --Trial of nebs Pneumonia Left pleural effusion CT Chest showed large pleural effusion with opacities thoracentesis ordered with fluid studies but patient refusing. Hold Xarelto for now. Resume if improves. If worsening, would be discussion of thoracentesis vs hospice. Zosyn and Azithromycin, add linezolid x5 days Follow cultures Started on mucinex--change to liquid Difficulty swallowing Refusing pills. Also refusing crushed/liquid meds for taste reasons. --Scheduled potassium IV --Speech consulted for bedside swallow Leg edema she is on 20 mg lasix at home received IV lasix in ed she has 3+ edema, will added IV lasix 40 mg daily IV for now monitor closely and downgrade to po as indicated/once edema is improved added K supplements as well cardiology following DVT restart home anticoagulation once reconciled DVT prophylaxis on Sq Lovenox- stopped 04/08 as home med-xarelto restarted. Holding xarelto for now. Added subq heparin pending procedures if patient changes her mind about procedures Full code Goals of care DNR/DNI Not interested in hospice Waiting for God to heal her and feels ok if he doesn't Family also at bedside SDM: Ana Inocencio, Daughter Medical Record Review I have reviewed the following patient records and this information was taken into consideration when formulating the assessment and plan.: previous labs, previous ER visits, previous hospitalizations and previous clinic visits Time Spent With Patient Time with patient: Greater than 35 minutes Subjective Date/time seen: 04/09/25 09:36 Interval history: Patient currently refusing thoracentesis. Said [facility] gets worse [facility], but that if God wants to heal her that she'll get better. She is planning to speak to her respiratory therapy technician soon. Asked her if she would choose hospice or a thoracentesis if her breathing was worse she also said she wouldn't have a thoracentesis but also didn't want hospice. Family at bedside and aware of her decision, though would prefer if she got the thoracentesis. Repeating chest x-ray today Not swallowing pills well, doesn't want to take potassium liquid or tablet. BP elevated, 178/45, RR 32, HR 57 Cardiology following Zosyn/Azithromycin WBC stable, febrile to 100.3 this morning, overall temp curve improving (was up to 103 04/07). Blood cultures pending Hold xarelto for thoracentesis, last dose 04/08 pm. Heparin subq while on hold Review of Systems Review of Systems: All other systems reviewed and negative except as noted in the history above. Exam Narrative: General - Awake and alert. No acute distress Eyes - PERRLA, EOM intact ENT - No thrush, No erythema Neck - No noticeable or palpable swelling Lymph Nodes - No lymphadenopathy Cardiovascular - RRR no m/r/g, no JVD Lungs: Crackles and wheezes bilateral lungs Skin - Skin warm and dry, no wounds or rashes Abdomen - Normal bowel sounds, abdomen soft and nontender Extremities - Lower extremities edematous, mild erythema and TTP, no cyanosis or clubbing Musculoskeletal - 3/5 strength, normal range of motion, no swollen or erythematous joints. Neurological ? Alert and oriented, CN 2-12 grossly intact. Psych: Normal mood and affect Objective Data Vital Signs Vital Signs: Vital Signs - 24 hr 04/08/25 10:00 04/08/25 11:01 04/08/25 12:00 Temperature Pulse Rate 53 L 62 Respiratory Rate Blood Pressure Pulse Oximetry Oxygen Delivery High Flow Therapy with Na Oxygen Flow Rate 7 04/08/25 12:00 04/08/25 12:15 04/08/25 14:00 Temperature 100.1 F H Pulse Rate 55 L 52 L Respiratory Rate 26 H Blood Pressure 181/84 H Pulse Oximetry 97 99 Oxygen Delivery High Flow Therapy with Na Oxygen Flow Rate 2 04/08/25 15:47 04/08/25 16:00 04/08/25 18:00 Temperature Pulse Rate 51 L 53 L Respiratory Rate Blood Pressure Pulse Oximetry 98 Oxygen Delivery High Flow Therapy with Na Oxygen Flow Rate 2 04/08/25 20:00 04/08/25 20:00 04/08/25 20:00 Temperature 99.7 F H Pulse Rate 46 L 57 L Respiratory Rate 20 Blood Pressure 147/45 H Pulse Oximetry 94 94 Oxygen Delivery Nasal Cannula Oxygen Flow Rate 2 04/08/25 22:00 04/08/25 23:54 04/09/25 00:00 Temperature 99.6 F Pulse Rate 55 L 63 62 Respiratory Rate 20 Blood Pressure 148/63 H Pulse Oximetry 94 Oxygen Delivery Oxygen Flow Rate 04/09/25 00:00 04/09/25 02:00 04/09/25 04:00 Temperature 100.3 F H Pulse Rate 49 L 66 Respiratory Rate 20 Blood Pressure 152/53 H Pulse Oximetry 95 92 Oxygen Delivery Nasal Cannula Oxygen Flow Rate 2 04/09/25 04:00 04/09/25 04:00 04/09/25 06:00 Temperature Pulse Rate 45 L 49 L Respiratory Rate Blood Pressure Pulse Oximetry 92 Oxygen Delivery Nasal Cannula Oxygen Flow Rate 2 04/09/25 08:00 Temperature 98.9 F Pulse Rate 57 L Respiratory Rate 32 H Blood Pressure 178/46 H Pulse Oximetry 92 Oxygen Delivery Oxygen Flow Rate Intake/Output Intake/Output: Intake & Output 04/06/25 04/07/25 04/08/25 04/09/25 23:59 23:59 23:59 23:59 Intake Total 900 1480 418 Output Total 1200 1000 Balance 900 280 -582 Meds/Results Medications: Active Medications Generic Name Dose Route Start Last Admin Trade Name Freq PRN Reason Stop Dose Admin Acetaminophen 650 mg 04/07/25 08:29 04/08/25 10:50 Acetaminophen 325 Mg Tablet PO 650 mg Q4H PRN Administration Mild Pain (1-3) or Fever Furosemide 40 mg 04/08/25 09:00 04/08/25 12:58 Furosemide Inj 40 Mg/4 Ml Vial IV PUSH 40 mg DAILY WHITLEY Administration Guaifenesin 1,200 mg 04/08/25 21:00 04/08/25 23:28 Guaifenesin 12 Hr 600 Mg Tabcr PO Not Given Q12HR WHITLEY Hydralazine HCl 10 mg 04/07/25 16:12 04/07/25 16:22 Hydralazine Hcl 20 Mg/Ml Vial IV PUSH 10 mg Q4H PRN Administration Blood Pressure systolic>160 Piperacillin Sod/Tazobactam 100 mls @ 200 mls/hr 04/07/25 12:50 04/09/25 06:44 Sod 4.5 gm/ Sodium Chloride IVPB 200 mls/hr Q6HR WHITLEY Administration Azithromycin 500 mg/ Sodium 250 mls @ 250 mls/hr 04/07/25 14:00 04/08/25 13:59 Chloride IVPB Infused Q24H [facility] Infusion Ondansetron HCl 4 mg 04/07/25 08:29 Ondansetron Inj 4 Mg/2 Ml Vial IV PUSH Q4H PRN Nausea Potassium Chloride 40 meq 04/08/25 09:00 04/08/25 15:31 Potassium Chloride 20 Meq Packet (For Liquid) PO Not Given DAILY WHITLEY Rivaroxaban 20 mg 04/08/25 18:00 04/08/25 18:00 Rivaroxaban 20 Mg Tablet PO 20 mg QPM WHITLEY Administration Radiology Results: ITS Impressions Chest CTA 04/07/25 07:45 IMPRESSION: 1. No PE. 2. Large right pleural effusion. 3. Scattered foci of pneumonitis and/or airspace disease right lung. Chest X-Ray 04/07/25 08:23 IMPRESSION: 1. Right pleural effusion. 2. Scattered pneumonitis right lung. Quality VTE Prophylaxis VTE prophylaxis: pharmacologic ordered Hospitalist [facility] Advance Care Plan I have confirmed that the patient's Advanced Care Plan is present, code status is documented, or surrogate decision maker is listed in patient medical record.: Yes Medication Reconciliation I have utilized all available resources to obtain, update and review the patients current medications (includes all prescriptions, OTC, herbals, cannabis, and nutritional supplements).: Yes
[2025-04-09] MEDS: POTASSIUM CHLORIDE 20 MEQ PACKET (FOR LIQUID) 40 MEQ PO (10:03)
[2025-04-09] MEDS: guaiFENesin 12 HR 600 MG TABCR 1200 MG PO ×2 (10:06→21:02)
[2025-04-09] MEDS: FUROSEMIDE INJ 40 MG/4 ML VIAL IV PUSH (10:06)
[2025-04-09] MEDS: ACETAMINOPHEN 325 MG TABLET 650 MG PO ×2 (10:07→14:10)
[2025-04-09] MEDS: LINEZOLID 600 MG/300 ML 600 MG/300 ML SOLN 300 MG IVPB ×2 (12:22→22:05)
[2025-04-09] MEDS: IPRATROPIUM 0.5 MG/ALBUTEROL SULFATE 2.5 MG (BASE) AMPUL.NEB 3 ML INHALATION ×2 (13:03→21:07)
[2025-04-09] MEDS: AZITHROMYCIN IV 500 MG in SODIUM CHLORIDE 0.9% IV 250 ML IVPB (14:06)
[2025-04-09] MEDS: POTASSIUM CHLORIDE INJ 40 MEQ in SODIUM CHLORIDE 0.9% IV 500 ML 130 MEQ IVPB (14:06)
--- NOTE | 2025-04-09 18:43 | PC.NURSE ---
1830 Pt transferred from IMU to room 242. Pt A & O x 3, 5L O2. Many family members at the bedside.
[2025-04-10] VITALS (7 sets, daily range): BP systolic 149–154; BP diastolic 52–61; PULSE 49–60; RESP 16–18; TEMP 36.4–37.1; O2SAT 92–96
[2025-04-10] MEDS: IPRATROPIUM 0.5 MG/ALBUTEROL SULFATE 2.5 MG (BASE) AMPUL.NEB 3 ML INHALATION (03:22)
[2025-04-10] MEDS: PIPERACILLIN/TAZOBACTAM SOD 4.5 GM in SODIUM CHLORIDE 0.9% IV 100 ML 200 ML IVPB (03:49)
--- NOTE | 2025-04-10 08:52 | PM.IMPN2 ---
Assessment and Plan Assessment and Plan (1) Hypoxia: Code(s): R09.02 - Hypoxemia Status: Acute Plan 84-year-old female past medical history of DVT, benign lung tumor presented to the ER on account of fever and cough. Reported symptoms has been going on for the past 5 days and worsening. It generalized weakness and poor appetite. No oxygen at baseline now requiring 4 L. Chest pain, no diarrhea focal symptoms. Emergency room evaluation notable for blood pressure 161/53, pulse 44, respiratory rate 19 saturating 96% on 4 L oxygen. Labs notable elevated troponin. CT chest showed moderately large right-sided pleural effusion with opacities. Unchanged pleural-based nodular consolidative focus right lateral base; no change for 4 years strongly suggests benign. A few scattered granulomata unchanged. Bibasilar scarring. Started on Rocephin and azithromycin. She is alert, poor historian, with circular reasoning. Reports cough and congestion. c/o leg swelling. Acute hypoxemic respiratory failure Likely pneumonia On 4 liters, baseline on room air titrate with clinical course --continue nebulizer treatments Pneumonia Large right pleural effusion CT Chest showed large pleural effusion with opacities thoracentesis ordered with fluid studies but patient refusing. Hold Xarelto for now. Resume if improves. If worsening, would be discussion of thoracentesis vs hospice. Zosyn and Azithromycin, add linezolid x5 days Follow cultures Started on mucinex--change to liquid consult pulmonology Difficulty swallowing Refusing pills. Also refusing crushed/liquid meds for taste reasons. --Speech consulted for bedside swallow Leg edema she is on 20 mg lasix at home received IV lasix in ed she had 3+ edema, continue IV lasix 40 mg daily IV for now monitor closely and downgrade to po as indicated/once edema is improved, possible tomorrow added K supplements as well, patient refuses to take them, monitor labs and supplement with IV as needed for now cardiology following DVT DVT prophylaxis on Sq Lovenox- stopped 04/08 as home med-xarelto restarted. Holding xarelto for now. Patient refuses sub q injections as she is afraid of needles, SCD's ordered Full code Goals of care DNR/DNI Not interested in hospice Waiting for God to heal her and feels ok if he doesn't Family also at bedside SDM: Ana Painter, Daughter Medical Record Review I have reviewed the following patient records and this information was taken into consideration when formulating the assessment and plan.: previous labs, previous ER visits, previous hospitalizations and previous clinic visits Subjective Date/time seen: 04/10/25 08:52 Interval history: Patient seen for a follow up visit. Patient sitting up in chair, in no acute distress. Son at bedside during visit. Patient denies acute complaints, but does state she does not feel good. Patient on room air currently, but has been on and off oxygen for the last 24 hours per nursing. Patient continues on IV Zosyn, IV Linezolid and IV azithromycin. Patient was admitted with a large right pleural effusion and has refused to agree to a thoracentesis. Patient reports she is afraid of needles and will not undergo the procedure. I offered the patient some medication to help her relax and she still refuses. Patient was afebrile yesterday morning, but has been afebrile since. Labs ordered. Pulmonology consulted. Review of Systems Review of Systems: All other systems reviewed and negative except as noted in the history above. Exam Narrative: General - Awake and alert. No acute distress Eyes - PERRLA, EOM intact ENT - No thrush, No erythema Neck - No noticeable or palpable swelling Lymph Nodes - No lymphadenopathy Cardiovascular - RRR no m/r/g, no JVD Lungs: crackles and wheezes LLL, no breath sounds RUL, RLL Skin - Skin warm and dry, no wounds or rashes Abdomen - Normal bowel sounds, abdomen soft and nontender Extremities - Lower extremities edematous, non-pitting, improving, mild erythema and TTP, no cyanosis or clubbing Musculoskeletal - 3/5 strength, normal range of motion, no swollen or erythematous joints. Neurological ? Alert and oriented, CN 2-12 grossly intact. Psych: Normal mood and affect Objective Data Vital Signs Vital Signs: Vital Signs - 24 hr 04/09/25 10:00 04/09/25 12:00 04/09/25 12:00 Temperature Pulse Rate 46 L 56 L Respiratory Rate Blood Pressure Pulse Oximetry 100 Oxygen Delivery Nasal Cannula Oxygen Flow Rate 2 Fraction of Inspired Oxygen 04/09/25 13:04 04/09/25 13:13 04/09/25 14:00 Temperature Pulse Rate 52 L 56 L 54 L Respiratory Rate 16 16 Blood Pressure Pulse Oximetry Oxygen Delivery Oxygen Flow Rate Fraction of Inspired Oxygen 04/09/25 16:00 04/09/25 20:00 04/09/25 21:09 Temperature Pulse Rate 51 L 48 L Respiratory Rate 18 Blood Pressure Pulse Oximetry 98 Oxygen Delivery Nasal Cannula Oxygen Flow Rate 4 Fraction of Inspired Oxygen 28 04/09/25 21:10 04/09/25 21:14 04/09/25 21:32 Temperature 97.8 F Pulse Rate 48 L 56 L Respiratory Rate 18 16 Blood Pressure 182/65 H Pulse Oximetry 96 98 Oxygen Delivery Nasal Cannula Oxygen Flow Rate 4 Fraction of Inspired Oxygen 04/10/25 03:23 04/10/25 03:33 04/10/25 04:13 Temperature 97.5 F L Pulse Rate 49 L 49 L 52 L Respiratory Rate 18 18 16 Blood Pressure 154/52 H Pulse Oximetry 96 Oxygen Delivery Oxygen Flow Rate Fraction of Inspired Oxygen Intake/Output Intake/Output: Intake & Output 04/07/25 04/08/25 04/09/25 04/10/25 23:59 23:59 23:59 23:59 Intake Total 900 1480 1818 300 Output Total 1200 1400 600 Balance 900 280 418 -300 Meds/Results Medications: Active Medications Generic Name Dose Route Start Last Admin Trade Name Freq PRN Reason Stop Dose Admin Acetaminophen 650 mg 04/07/25 08:29 04/09/25 14:10 Acetaminophen 325 Mg Tablet PO 650 mg Q4H PRN Administration Mild Pain (1-3) or Fever Albuterol/Ipratropium 3 ml 04/09/25 14:00 04/10/25 07:56 Ipratropium 0.5 Mg/Albuterol Sulfate 2.5 Mg (Base) Ampul.Neb 3 Ml INHALATION Not Given Q6HRT WHITLEY Furosemide 40 mg 04/08/25 09:00 04/09/25 10:06 Furosemide Inj 40 Mg/4 Ml Vial IV PUSH 40 mg DAILY WHITLEY Administration Guaifenesin 1,200 mg 04/08/25 21:00 04/09/25 21:02 Guaifenesin 12 Hr 600 Mg Tabcr PO 1,200 mg Q12HR WHITLEY Administration Guaifenesin/Dextromethorphan 10 ml 04/09/25 11:29 Guaifenesin/Dextromethorphan 10 Ml Udc PO Q4H PRN Cough Hydralazine HCl 10 mg 04/07/25 16:12 04/07/25 16:22 Hydralazine Hcl 20 Mg/Ml Vial IV PUSH 10 mg Q4H PRN Administration Blood Pressure systolic>160 Azithromycin 500 mg/ Sodium 250 mls @ 250 mls/hr 04/07/25 14:00 04/09/25 15:06 Chloride IVPB Infused Q24H WHITLEY Infusion Linezolid 600 mg in 300 mls @ 300 mls/hr 04/09/25 11:35 04/09/25 22:05 Zyvox IVPB 04/14/25 11:34 300 mls/hr Q12HR WHITLEY Administration Piperacillin Sod/Tazobactam 50 mls @ 100 mls/hr 04/10/25 09:00 Sod 3.375 gm/ Sodium Chloride IVPB Q6H WH[facility]LEY Ondansetron HCl 4 mg 04/07/25 08:29 Ondansetron Inj 4 Mg/2 Ml Vial IV PUSH Q4H PRN Nausea Radiology Results: ITS Impressions Chest CTA 04/07/25 07:45 IMPRESSION: 1. No PE. 2. Large right pleural effusion. 3. Scattered foci of pneumonitis and/or airspace disease right lung. Chest X-Ray 04/09/25 13:55 IMPRESSION: 1. Cardiomegaly with airspace opacities of both lungs, right more than the left. 2. Small bilateral pleural effusion. 3. Overall pulmonary findings are unchanged from previous study. Quality VTE Prophylaxis VTE prophylaxis: pharmacologic ordered Hospitalist [facility] Advance Care Plan I have confirmed that the patient's Advanced Care Plan is present, code status is documented, or surrogate decision maker is listed in patient medical record.: Yes Medication Reconciliation I have utilized all available resources to obtain, update and review the patients current medications (includes all prescriptions, OTC, herbals, cannabis, and nutritional supplements).: Yes
[2025-04-10] MEDS: PIPERACILLIN/TAZOBACTAM SOD 3.375 GM in SODIUM CHLORIDE 0.9% IV 50 ML 100 ML IVPB ×3 (09:18→21:36)
[2025-04-10] MEDS: FUROSEMIDE INJ 40 MG/4 ML VIAL IV PUSH (09:18)
[2025-04-10] MEDS: LINEZOLID 600 MG/300 ML 600 MG/300 ML SOLN 300 MG IVPB ×2 (10:28→21:37)
[2025-04-10] MEDS: AZITHROMYCIN IV 500 MG in SODIUM CHLORIDE 0.9% IV 250 ML IVPB (15:00)
[2025-04-10 15:06] LABS: Hematocrit 40.2 % (37.0-47.0); Hemoglobin 13.3 g/dL (12.0-15.0); Immature Granulocyte Percent A 0.4 % (0-0.5); Lymphocytes Absolute Auto 0.84 K/mm3 (0.9-3.2); Mean Corpuscular HGB Conc 33.1 g/dl (32-36); Mean Corpuscular Hemoglobin 32.2 pg (26-34); Mean Corpuscular Volume 97.3 fl (80-100); Nucleated Red Blood Cells Absolute Auto 0.000 K/mm3 (0.0-0.012); Nucleated Red Blood Cells Perc 0.0 % (0.0-0.2); Platelet Count Result 117 k/mm3 (150-375); Red Blood Count 4.13 M/mm3 (4.2-5.4); White Blood Count 8.3 K/mm3 (4.5-10.0)
--- NOTE | 2025-04-10 15:11 | P.PNCA_ITS ---
Progress Note: A&P Assessment and Plan (1) Atrial fibrillation: Code(s): I48.91 - Unspecified atrial fibrillation Status: Acute Plan - atrial fibrillation, new diagnosis - acute on chronic diastolic heart failure exacerbation - large right pleural effusion - hypertension, - pneumonia with fever on admission - history of DVT, IVC filter - in regards to atrial fibrillation, rate controlled. Not on AV roger blocking agents. Echo done during this admission shows normal ejection fraction. Moderate left atrial enlargement. Continue Xarelto. - In regards to acute on chronic diastolic heart failure exacerbation, large r ight pleural effusion, patient was having edema. The elevated brain atretic peptide. Continue Lasix 40 mg IV daily. Patient at home states that she takes furosemide 20 mg p.o. daily but her legs are swollen intermittently. - in regards to hypertension, start spironolactone 25 mg daily which should help with CHF and blood pressure. - In regards to pneumonia, continue antibiotics. - In regards to history of DVT, continue Xarelto. Subjective Date/time seen: 04/10/25 15:11 Interval history: Follow-up visit in this 84-year-old lady withPast history of deep vein thrombosis, IVC filter who takes Xarelto at home presents with fever and cough. Temperature on admission 39.3 centigrade Appears to have chronic atrial fibrillation with slow ventricular response and has been restarted on anticoagulation with Xarelto. Patient is admitted with clinical diagnosis of community acquired pneumonia. She is on appropriate antibiotics and resting comfortably today. Voices no cardiovascular complaints at this time Date of service 04/10/2025- Review of Systems Review of Systems: ROS unobtainable: Yes unobtainable due to medical condition Exam Const: General: comfortable and no acute distress Other: Elderly white female resting comfortably in bed HENMT: Face/Nose/Sinus: Normal nares present Mouth: Yes moist mucous membra gabe Eyes: Sclera: sclerae normal Neck: Neck: supple and no JVD Resp: Effort & Inspection: normal respiratory effort Other: Central coarse rhonchi are still noted no wheezing no rales Cardio: Rate: regular rate Rhythm: abnormal rhythm irregularly irregular Other: Soft systolic murmur audible at the left sternal border without radiation GI: Auscultation: normal bowel sounds Skin: General skin exam: normal color Neuro: Other: Arousable, oriented to self Extrem: Other: Adequate perfusion, changes of chronic venous insufficiency noted Objective Data Vital Signs Vital Signs: Vital Signs - 24 hr 04/09/25 16:00 04/09/25 20:00 04/09/25 21:09 Temperature Pulse Rate 51 L 48 L Respiratory Rate 18 Blood Pressure Pulse Oximetry 98 Oxygen Delivery Nasal Cannula Oxygen Flow Rate 4 Fraction of Inspired Oxygen 28 04/09/25 21:10 04/09/25 21:14 04/09/25 21:32 Temperature 36.6 C Pulse Rate 48 L 56 L Respiratory Rate 18 16 Blood Pressure 182/65 H Pulse Oximetry 96 98 Oxygen Delivery Nasal Cannula Oxygen Flow Rate 4 Fraction of Inspired Oxygen 04/10/25 03:23 04/10/25 03:33 04/10/25 04:13 Temperature 36.4 C L Pulse Rate 49 L 49 L 52 L Respiratory Rate 18 18 16 Blood Pressure 154/52 H Pulse Oximetry 96 Oxygen Delivery Oxygen Flow Rate Fraction of Inspired Oxygen 04/10/25 07:56 04/10/25 09:15 04/10/25 13:39 Temperature 36.8 C Pulse Rate 60 Respiratory Rate 18 Blood Pressure 149/61 H Pulse Oximetry 96 94 93 Oxygen Delivery Nasal Cannula Room Air Oxygen Flow Rate 4 Fraction of Inspired Oxygen Intake/Output Intake/Output: Intake & Output 04/07/25 04/08/25 04/09/25 04/10/25 23:59 23:59 23:59 23:59 Intake Total 900 1480 2118 710 Output Total 1200 1400 600 Balance 900 280 718 110 Meds/Results Medications: Active Medications Generic Name Dose Route Start Last Admin Trade Name Freq PRN Reason Stop Dose Admin Acetaminophen 650 mg 04/07/25 08:29 04/09/25 14:10 Acetaminophen 325 Mg Tablet PO 650 mg Q4H PRN Administration Mild Pain (1-3) or Fever Albuterol/Ipratropium 3 ml 04/09/25 14:00 04/10/25 13:52 Ipratropium 0.5 Mg/Albuterol Sulfate 2.5 Mg (Base) Ampul.Neb 3 Ml INHALATION Not Given Q6HRT WHITLEY Furosemide 40 mg 04/08/25 09:00 04/10/25 09:18 Furosemide Inj 40 Mg/4 Ml Vial IV PUSH 40 mg DAILY WHITLEY Administration Guaifenesin 1,200 mg 04/08/25 21:00 04/10/25 09:25 Guaifenesin 12 Hr 600 Mg Tabcr PO Not Given Q12HR WHITLEY Guaifenesin/Dextromethorphan 10 ml 04/09/25 11:29 Guaifenesin/Dextromethorphan 10 Ml Udc PO Q4H PRN Cough Hydralazine HCl 10 mg 04/07/25 16:12 04/07/25 16:22 Hydralazine Hcl 20 Mg/Ml Vial IV PUSH 10 mg Q4H PRN Administration Blood Pressure systolic>160 Azithromycin 500 mg/ Sodium 250 mls @ 250 mls/hr 04/07/25 14:00 04/10/25 15:00 Chloride IVPB 250 mls/hr Q24H WHITLEY Administration Linezolid 600 mg in 300 mls @ 300 mls/hr 04/09/25 11:35 04/10/25 10:28 Zyvox IVPB 04/14/25 11:34 300 mls/hr Q12HR WHITLEY Administration Piperacillin Sod/Tazobactam 50 mls @ 100 mls/hr 04/10/25 09:00 04/10/25 09:48 Sod 3.375 gm/ Sodium Chloride IVPB Infused Q6H WHITLEY Infusion Ondansetron HCl 4 mg 04/07/25 08:29 Ondansetron Inj 4 Mg/2 Ml Vial IV PUSH Q4H PRN Nausea Radiology Results: ITS Impressions Chest CTA 04/07/25 07:45 IMPRESSION: 1. No PE. 2. Large right pleural effusion. 3. Scattered foci of pneumonitis and/or airspace disease right lung. Chest X-Ray 04/09/25 13:55 IMPRESSION: 1. Cardiomegaly with airspace opacities of both lungs, right more than the left. 2. Small bilateral pleural effusion. 3. Overall pulmonary findings are unchanged from previous study.
[2025-04-10 15:22] LABS: Alanine Aminotransferase 23 U/L (6-35); Albumin Level 3.7 g/dL (3.5-5.1); Alkaline Phosphatase 66 U/L (38-126); Anion Gap 7 mmol/L (4-12); Aspartate Amino Transferase 52 U/L (14-36); Bilirubin,Total 1.1 mg/dL (0.2-1.3); Blood Urea Nitrogen 16 mg/dL (7-17); Calcium 8.2 mg/dL (8.4-10.2); Carbon Dioxide 28 mmol/L (22-30); Chloride 99 mmol/L (98-107); Estimated CRCL calculation 52 ml/min; Estimated Glomerular Filt Rate > 60; Glucose 122 mg/dL (65-110); Potassium 3.4 mmol/L (3.4-5.0); Sodium 134 mmol/L (137-145); Total Protein 7.9 g/dL (6.3-8.2)
[2025-04-10] MEDS: SPIRONOLACTONE 25 MG TABLET PO (17:03)
[2025-04-11] VITALS (9 sets, daily range): BP systolic 140–153; BP diastolic 51–53; PULSE 50–61; RESP 16–20; TEMP 36.4–36.8; O2SAT 93–97
[2025-04-11] MEDS: PIPERACILLIN/TAZOBACTAM SOD 3.375 GM in SODIUM CHLORIDE 0.9% IV 50 ML 100 ML IVPB (02:35)
[2025-04-11 06:49] LABS: Toxigenic C. Diff NEGATIVE (NEGATIVE)
[2025-04-11] MEDS: SPIRONOLACTONE 25 MG TABLET PO (09:51)
[2025-04-11] MEDS: FUROSEMIDE INJ 40 MG/4 ML VIAL IV PUSH (09:51)
[2025-04-11] MEDS: LINEZOLID 600 MG/300 ML 600 MG/300 ML SOLN 300 MG IVPB ×2 (09:53→20:49)
[2025-04-11] MEDS: IPRATROPIUM 0.5 MG/ALBUTEROL SULFATE 2.5 MG (BASE) AMPUL.NEB 3 ML INHALATION ×3 (10:11→20:35)
--- NOTE | 2025-04-11 11:42 | P.PNIM_ITS ---
Assessment and Plan Assessment and Plan (1) Hypoxia: Code(s): R09.02 - Hypoxemia Status: Acute Plan 84-year-old female past medical history of DVT, benign lung tumor presented to the ER on account of fever and cough. Reported symptoms has been going on for the past 5 days and worsening. It generalized weakness and poor appetite. No oxygen at baseline and now requiring 4 L. Chest pain, no diarrhea focal symptoms. Emergency room evaluation notable for blood pressure 161/53, pulse 44, respiratory rate 19 saturating 96% on 4 L oxygen. Labs notable elevated troponin. CT chest showed moderately large right-sided pleural effusion with opacities. Unchanged pleural-based nodular consolidative focus right lateral base; no change for 4 years strongly suggests benign. A few scattered granulomata unchanged. Bibasilar scarring. Started on Rocephin and azithromycin. She is alert, poor historian, with circular reasoning. Reports cough and congestion. c/o leg swelling. Acute hypoxemic respiratory failure Likely pneumonia related and also noted to have right large pleural effusion suspected to be parapneumonic effusion. Other possibility being congestive heart failure. Patient has refused thoracentesis to perform pleural fluid analysis. Initially On 4 liters, baseline on room air Weaned off oxygen 04/11/2025 --continue nebulizer treatments Treatment of pneumonia as delineated below Also on diuresis as ordered Elevated troponin with flat trend Pneumonia Large right pleural effusion CT Chest showed large pleural effusion with opacities thoracentesis ordered with fluid studies but patient refusing. Hold Xarelto for now. Resume if improves. Repeat chest x-ray with small bilateral pleural effusion noted Patient started on Zosyn and Azithromycin, add linezolid x5 days Will check MRSA nares and get respiratory culture and get procalcitonin Blood culture no growth to date Started on mucinex--change to liquid consult pulmonology and will await their recommendations Will repeat chest x-ray today Right lower lobe lung nodule no change compared to CT from 2020 strongly suggestive of benign etiology. Difficulty swallowing/dysphagia Refusing pills. Also refusing crushed/liquid meds for taste reasons. --Speech consulted for bedside swallow Leg edema she is on 20 mg lasix at home received IV lasix in ed she had 3+ edema, continue IV lasix 40 mg daily IV for now Will continue same. Transition to oral added K supplements as well, patient refuses to take them, monitor labs and supplement with IV as needed for now cardiology following Echo: EF 65-70% indeterminate diastolic function no significant valvular abnormality. History of DVT DVT prophylaxis on Sq Lovenox- stopped 04/08 as home med-xarelto restarted. Holding xarelto for now. Patient refuses sub q injections as she is afraid of needles, SCD's ordered Full code Goals of care DNR/DNI Not interested in hospice Waiting for God to heal her and feels ok if he doesn't Family also at bedside SDM: Ana Painter, Daughter Medical Record Review I have reviewed the following patient records and this information was taken into consideration when formulating the assessment and plan.: previous labs, previous ER visits, previous hospitalizations and previous clinic visits Subjective Date/time seen: 04/11/25 11:42 Interval history: Patient is off oxygen this a.m.. Feels okay and much improved compared to when she came in. Shortness of breath with exertion. Still has some cough. Leg swelling has improved. Son is at bedside and discussed with him. She does not Wanna go to a nursing facility from here. She has also refused to get thoracentesis. She remains on IV antibiotics. She is waiting to see a overcoiler with regard to her pneumonia who was consulted yesterday. Review of Systems Review of Systems: All other systems reviewed and negative except as noted in the history above. Exam Narrative: General - Awake and alert. No acute distress Eyes - PERRLA, EOM intact ENT - No thrush, No erythema Neck - No noticeable or palpable swelling Lymph Nodes - No lymphadenopathy Cardiovascular - RRR no m/r/g, no JVD Lungs: crackles and wheezes LLL, diminished breath sounds bilaterally in bases Skin - Skin warm and dry, no wounds or rashes Abdomen - Normal bowel sounds, abdomen soft and nontender Extremities - Lower extremities 1+ edema improving, non-pitting, mild erythema and TTP, no cyanosis or clubbing Musculoskeletal - 3/5 strength, normal range of motion, no swollen or erythematous joints. Neurological ? Alert and oriented, CN 2-12 grossly intact. Psych: Normal mood and affect Objective Data Vital Signs Vital Signs: Vital Signs - 24 hr 04/10/25 13:39 04/10/25 20:00 04/10/25 21:47 Temperature 98.2 F 98.8 F Pulse Rate 60 60 Respiratory Rate 18 16 Blood Pressure 149/61 H 151/58 H Pulse Oximetry 93 92 Oxygen Delivery Room Air 04/11/25 04:54 04/11/25 10:12 04/11/25 10:12 Temperature 97.6 F Pulse Rate 61 53 L Respiratory Rate 16 18 Blood Pressure 152/51 H Pulse Oximetry 94 93 Oxygen Delivery Room Air 04/11/25 10:19 Temperature Pulse Rate 54 L Respiratory Rate 18 Blood Pressure Pulse Oximetry Oxygen Delivery Intake/Output Intake/Output: Intake & Output 04/08/25 04/09/25 04/10/25 04/11/25 23:59 23:59 23:59 23:59 Intake Total 1480 2118 1980 350 Output Total 1200 1400 600 Balance 456 182 5290 350 Meds/Results Medications: Active Medications Generic Name Dose Route Start Last Admin Trade Name Freq PRN Reason Stop Dose Admin Acetaminophen 650 mg 04/07/25 08:29 04/09/25 14:10 Acetaminophen 325 Mg Tablet PO 650 mg Q4H PRN Administration Mild Pain (1-3) or Fever Albuterol/Ipratropium 3 ml 04/09/25 14:00 04/11/25 10:11 Ipratropium 0.5 Mg/Albuterol Sulfate 2.5 Mg (Base) Ampul.Neb 3 Ml INHALATION 3 ml Q6HRT WHITLEY Administration Furosemide 40 mg 04/08/25 09:00 04/11/25 09:51 Furosemide Inj 40 Mg/4 Ml Vial IV PUSH 40 mg DAILY WHITLEY Administration Guaifenesin/Dextromethorphan 10 ml 04/09/25 11:29 Guaifenesin/Dextromethorphan 10 Ml Udc PO Q4H PRN Cough Hydralazine HCl 10 mg 04/07/25 16:12 04/07/25 16:22 Hydralazine Hcl 20 Mg/Ml Vial IV PUSH 10 mg Q4H PRN Administration Blood Pressure systolic>160 Azithromycin 500 mg/ Sodium 250 mls @ 250 mls/hr 04/07/25 14:00 04/10/25 16:00 Chloride IVPB Infused Q24H WHITLEY Infusion Linezolid 600 mg in 300 mls @ 300 mls/hr 04/09/25 11:35 04/11/25 09:53 Zyvox IVPB 04/14/25 11:34 300 mls/hr Q12HR WHITLEY Administration Piperacillin Sod/Tazobactam 50 mls @ 100 mls/hr 04/10/25 09:00 04/11/25 03:05 Sod 3.375 gm/ Sodium Chloride IVPB Infused Q6H WHITLEY Infusion Ondansetron HCl 4 mg 04/07/25 08:29 Ondansetron Inj 4 Mg/2 Ml Vial IV PUSH Q4H PRN Nausea Spironolactone 25 mg 04/10/25 15:35 04/11/25 09:51 Spironolactone 25 Mg Tablet PO 25 mg QAM WHITLEY Administration Radiology Results: ITS Impressions Chest CTA 04/07/25 07:45 IMPRESSION: 1. No PE. 2. Large right pleural effusion. 3. Scattered foci of pneumonitis and/or airspace disease right lung. Chest X-Ray 04/09/25 13:55 IMPRESSION: 1. Cardiomegaly with airspace opacities of both lungs, right more than the left. 2. Small bilateral pleural effusion. 3. Overall pulmonary findings are unchanged from previous study. Labs Labs: Laboratory Results - last 24 hr 04/10/25 04/11/25 15:00 04:54 WBC 8.3 RBC 4.13 L Hgb 13.3 Hct 40.2 MCV 97.3 MCH 32.2 MCHC 33.1 RDW 14.4 Plt Count 117 L MPV 12.1 H Immature Gran % (Auto) 0.4 Neut % (Auto) 86.2 H Lymph % (Auto) 10.2 L [place] % (Auto) 3.0 Eos % (Auto) 0.1 Baso % (Auto) 0.1 L Lymph # (Auto) 0.84 L [place] # (Auto) 0.3 Eos # (Auto) 0.0 Baso # (Auto) 0.0 Abs Immat Gran (auto) 0.03 Absolute Neuts (auto) 7.1 H Absolute Nucleated RBC 0.000 Nucleated RBC % 0.0 Sodium 134 L Potassium 3.4 Chloride 99 Carbon Dioxide 28 Anion Gap 7 BUN 16 D Creatinine 0.78 Estim Creat Clear Calc 52 Estimated GFR > 60 Glucose 122 H Calcium 8.2 L Total Bilirubin 1.1 AST 52 H ALT 23 Alkaline Phosphatase 66 Total Protein 7.9 Albumin 3.7 C. difficile (PCR) Negative Quality VTE Prophylaxis VTE prophylaxis: pharmacologic ordered Hospitalist [facility] Advance Care Plan I have confirmed that the patient's Advanced Care Plan is present, code status is documented, or surrogate decision maker is listed in patient medical record.: Yes Medication Reconciliation I have utilized all available resources to obtain, update and review the patients current medications (includes all prescriptions, OTC, herbals, cannabis, and nutritional supplements).: Yes
--- NOTE | 2025-04-11 11:42 | PM.PNCARD ---
Progress Note: A&P Assessment and Plan (1) Atrial fibrillation: Code(s): I48.91 - Unspecified atrial fibrillation Status: Acute Plan - atrial fibrillation, new diagnosis - acute on chronic diastolic heart failure exacerbation - large right pleural effusion - hypertension, - pneumonia with fever on admission - history of DVT, IVC filter - in regards to atrial fibrillation, rate controlled. Not on AV roger blocking agents. Echo done during this admission shows normal ejection fraction. Moderate left atrial enlargement. Continue Xarelto. - In regards to acute on chronic diastolic heart failure exacerbation, large right pleural effusion, patient was having edema. The elevated brain atretic peptide. Continue Lasix 40 mg IV daily. Patient at home states that she takes furosemide 20 mg p.o. daily but her legs are swollen intermittently. Order chest x-ray PA and lateral today. - in regards to hypertension, continue spironolactone 25 mg daily which was added on April 10 - In regards to pneumonia, continue antibiotics. - In regards to history of DVT, continue Xarelto. Subjective Date/time seen: 04/11/25 11:42 Interval history: Follow-up visit in this 84-year-old lady withPast history of deep vein thrombosis, IVC filter who takes Xarelto at home presents with fever and cough. Temperature on admission 39.3 centigrade Appears to have chronic atrial fibrillation with slow ventricular response and has been restarted on anticoagulation with Xarelto. Patient is admitted with clinical diagnosis of community acquired pneumonia. She is on appropriate antibiotics and resting comfortably today. Voices no cardiovascular complaints at this time Date of service 04/10/2025- Date of service 04/11/2025: Resting comfortably. Still has cough. She is on room air Review of Systems Review of Systems: ROS unobtainable: Yes unobtainable due to medical condition Exam Const: General: comfortable and no acute distress Other: Elderly white female resting comfortably in bed HENMT: Face/Nose/Sinus: Normal nares present Mouth: Yes moist mucous membranes Eyes: Sclera: sclerae normal Neck: Neck: supple and no JVD Resp: Effort & Inspection: normal respiratory effort Other: Central coarse rhonchi are still noted no wheezing no rales Cardio: Rate: regular rate Rhythm: abnormal rhythm irregularly irregular Other: Soft systolic murmur audible at the left sternal border without radiation GI: Auscultation: normal bowel sounds Skin: General skin exam: normal color Neuro: Other: Arousable, oriented to self Extrem: Other: Adequate perfusion, changes of chronic venous insufficiency noted Objective Data Vital Signs Vital Signs: Vital Signs - 24 hr 04/10/25 13:39 04/10/25 20:00 04/10/25 21:47 Temperature 36.8 C 37.1 C Pulse Rate 60 60 Respiratory Rate 18 16 Blood Pressure 149/61 H 151/58 H Pulse Oximetry 93 92 Oxygen Delivery Room Air 04/11/25 04:54 04/11/25 10:12 04/11/25 10:12 Temperature 36.4 C Pulse Rate 61 53 L Respiratory Rate 16 18 Blood Pressure 152/51 H Pulse Oximetry 94 93 Oxygen Delivery Room Air 04/11/25 10:19 Temperature Pulse Rate 54 L Respiratory Rate 18 Blood Pressure Pulse Oximetry Oxygen Delivery Intake/Output Intake/Output: Intake & Output 04/08/25 04/09/25 04/10/25 04/11/25 23:59 23:59 23:59 23:59 Intake Total 1480 2118 1980 350 Output Total 1200 1400 600 Balance 527 086 1098 350 Meds/Results Medications: Active Medications Generic Name Dose Route Start Last Admin Trade Name Freq PRN Reason Stop Dose Admin Acetaminophen 650 mg 04/07/25 08:29 04/09/25 14:10 Acetaminophen 325 Mg Tablet PO 650 mg Q4H PRN Administration Mild Pain (1-3) or Fever Albuterol/Ipratropium 3 ml 04/09/25 14:00 04/11/25 10:11 Ipratropium 0.5 Mg/Albuterol Sulfate 2.5 Mg (Base) Ampul.Neb 3 Ml INHALATION 3 ml Q6HRT WHITLEY Administration Furosemide 40 mg 04/08/25 09:00 04/11/25 09:51 Furosemide Inj 40 Mg/4 Ml Vial IV PUSH 40 mg DAILY WHITLEY Administration Guaifenesin/Dextromethorphan 10 ml 04/09/25 11:29 Guaifenesin/Dextromethorphan 10 Ml Udc PO Q4H PRN Cough Hydralazine HCl 10 mg 04/07/25 16:12 04/07/25 16:22 Hydralazine Hcl 20 Mg/Ml Vial IV PUSH 10 mg Q4H PRN Administration Blood Pressure systolic>160 Azithromycin 500 mg/ Sodium 250 mls @ 250 mls/hr 04/07/25 14:00 04/10/25 16:00 Chloride IVPB Infused Q24H WHITLEY Infusion Linezolid 600 mg in 300 mls @ 300 mls/hr 04/09/25 11:35 04/11/25 09:53 Zyvox IVPB 04/14/25 11:34 300 mls/hr Q12HR WHITLEY Administration Piperacillin Sod/Tazobactam 50 mls @ 100 mls/hr 04/10/25 09:00 04/11/25 03:05 Sod 3.375 gm/ Sodium Chloride IVPB Infused Q6H WHITLEY Infusion Ondansetron HCl 4 mg 04/07/25 08:29 Ondansetron Inj 4 Mg/2 Ml Vial IV PUSH Q4H PRN Nausea Spironolactone 25 mg 04/10/25 15:35 04/11/25 09:51 Spironolactone 25 Mg Tablet PO 25 mg QAM WHITLEY Administration Radiology Results: ITS Impressions Chest CTA 04/07/25 07:45 IMPRESSION: 1. No PE. 2. Large right pleural effusion. 3. Scattered foci of pneumonitis and/or airspace disease right lung. Chest X-Ray 04/09/25 13:55 IMPRESSION: 1. Cardiomegaly with airspace opacities of both lungs, right more than the left. 2. Small bilateral pleural effusion. 3. Overall pulmonary findings are unchanged from previous study. Labs Labs: Laboratory Results - last 24 hr 04/10/25 04/11/25 15:00 04:54 WBC 8.3 RBC 4.13 L Hgb 13.3 Hct 40.2 MCV 97.3 MCH 32.2 MCHC 33.1 RDW 14.4 Plt Count 117 L MPV 12.1 H Immature Gran % (Auto) 0.4 Neut % (Auto) 86.2 H Lymph % (Auto) 10.2 L [place] % (Auto) 3.0 Eos % (Auto) 0.1 Baso % (Auto) 0.1 L Lymph # (Auto) 0.84 L [place] # (Auto) 0.3 Eos # (Auto) 0.0 Baso # (Auto) 0.0 Abs Immat Gran (auto) 0.03 Absolute Neuts (auto) 7.1 H Absolute Nucleated RBC 0.000 Nucleated RBC % 0.0 Sodium 134 L Potassium 3.4 Chloride 99 Carbon Dioxide 28 Anion Gap 7 BUN 16 D Creatinine 0.78 Estim Creat Clear Calc 52 Estimated GFR > 60 Glucose 122 H Calcium 8.2 L Total Bilirubin 1.1 AST 52 H ALT 23 Alkaline Phosphatase 66 Total Protein 7.9 Albumin 3.7 C. difficile (PCR) Negative Quality VTE Prophylaxis VTE prophylaxis: pharmacologic ordered
[2025-04-11 13:26] LABS: MRSA (PCR) NOT DETECTED (NOT DETECTE)
[2025-04-11 13:46] LABS: CRP 13.6 mg/dL (<1.0)
[2025-04-11 13:47] LABS: Procalcitonin 0.1 ng/mL
[2025-04-11] MEDS: PIPERACILLIN/TAZOBACTAM SOD 4.5 GM in SODIUM CHLORIDE 0.9% IV 100 ML 200 ML IVPB ×3 (13:53→23:32)
[2025-04-11] MEDS: AZITHROMYCIN IV 500 MG in SODIUM CHLORIDE 0.9% IV 250 ML IVPB (14:52)
[2025-04-12] VITALS (12 sets, daily range): BP systolic 109–160; BP diastolic 50–68; PULSE 45–60; RESP 12–20; TEMP 36.3–36.4; O2SAT 93–96
[2025-04-12] MEDS: IPRATROPIUM 0.5 MG/ALBUTEROL SULFATE 2.5 MG (BASE) AMPUL.NEB 3 ML INHALATION ×3 (01:12→13:55)
[2025-04-12 05:35] LABS: Hematocrit 35.7 % (37.0-47.0); Hemoglobin 11.9 g/dL (12.0-15.0); Immature Granulocyte Percent A 0.5 % (0-0.5); Lymphocytes Absolute Auto 1.26 K/mm3 (0.9-3.2); Mean Corpuscular HGB Conc 33.3 g/dl (32-36); Mean Corpuscular Hemoglobin 31.8 pg (26-34); Mean Corpuscular Volume 95.5 fl (80-100); Nucleated Red Blood Cells Absolute Auto 0.000 K/mm3 (0.0-0.012); Nucleated Red Blood Cells Perc 0.0 % (0.0-0.2); Platelet Count Result 147 k/mm3 (150-375); Red Blood Count 3.74 M/mm3 (4.2-5.4); White Blood Count 6.4 K/mm3 (4.5-10.0)
[2025-04-12] MEDS: PIPERACILLIN/TAZOBACTAM SOD 4.5 GM in SODIUM CHLORIDE 0.9% IV 100 ML 200 ML IVPB ×3 (05:44→18:11)
[2025-04-12 08:38] LABS: Alanine Aminotransferase 21 U/L (6-35); Albumin Level 3.3 g/dL (3.5-5.1); Alkaline Phosphatase 61 U/L (38-126); Anion Gap 6 mmol/L (4-12); Aspartate Amino Transferase 43 U/L (14-36); Bilirubin,Total 1.2 mg/dL (0.2-1.3); Blood Urea Nitrogen 15 mg/dL (7-17); Calcium 8.4 mg/dL (8.4-10.2); Carbon Dioxide 32 mmol/L (22-30); Chloride 98 mmol/L (98-107); Estimated CRCL calculation 50 ml/min; Estimated Glomerular Filt Rate > 60; Glucose 105 mg/dL (65-110); Magnesium 1.9 mg/dL (1.6-2.3); Potassium 3.7 mmol/L (3.4-5.0); Sodium 136 mmol/L (137-145); Total Protein 7.4 g/dL (6.3-8.2)
[2025-04-12] MEDS: LINEZOLID 600 MG/300 ML 600 MG/300 ML SOLN 300 MG IVPB (09:05)
[2025-04-12] MEDS: FUROSEMIDE INJ 40 MG/4 ML VIAL IV PUSH ×2 (09:05→18:11)
[2025-04-12] MEDS: SPIRONOLACTONE 25 MG TABLET PO (09:05)
--- NOTE | 2025-04-12 10:48 | PM.PNCARD ---
Progress Note: A&P Assessment and Plan (1) Atrial fibrillation: Code(s): I48.91 - Unspecified atrial fibrillation Status: Acute Plan - atrial fibrillation, new diagnosis - acute on chronic diastolic heart failure exacerbation - large right pleural effusion - hypertension, - pneumonia with fever on admission - history of DVT, IVC filter - in regards to atrial fibrillation, rate controlled. Not on AV roger blocking agents. Echo done during this admission shows normal ejection fraction. Moderate left atrial enlargement. For some reason Xarelto is being held. I reached out to the nurse who will be contacting the hospitalist about discussing restarting Xarelto. - In regards to acute on chronic diastolic heart failure exacerbation, large right pleural effusion, patient was having edema. The elevated brain atretic peptide. Continue Lasix 40 mg IV daily. Patient at home states that she takes furosemide 20 mg p.o. daily but her legs are swollen intermittently. Will administer additional dosage of IV Lasix in the evening and anticipate to change to p.o. Lasix tomorrow. - in regards to hypertension, continue spironolactone 25 mg daily . - In regards to pneumonia, continue antibiotics. - In regards to history of DVT, recommend to resume Xarelto. Not sure why it is being held. Subjective Date/time seen: 04/12/25 10:48 Interval history: Follow-up visit in this 84-year-old lady withPast history of deep vein thrombosis, IVC filter who takes Xarelto at home presents with fever and cough. Temperature on admission 39.3 centigrade Appears to have chronic atrial fibrillation with slow ventricular response and has been restarted on anticoagulation with Xarelto. Patient is admitted with clinical diagnosis of community acquired pneumonia. She is on appropriate antibiotics and resting comfortably today. Voices no cardiovascular complaints at this time Date of service 04/10/2025- Date of service 04/11/2025: Resting comfortably. Still has cough. She is on room air Date of service 04/12/2025-resting comfortably in bed. Feels better today. Cough improved. She has a wound. Review of Systems Review of Systems: ROS unobtainable: Yes unobtainable due to medical condition Exam Const: General: comfortable and no acute distress Other: Elderly white female resting comfortably in bed HENMT: Face/Nose/Sinus: Normal nares present Mouth: Yes moist mucous membranes Eyes: Sclera: sclerae normal Neck: Neck: supple and no JVD Resp: Effort & Inspection: normal respiratory effort Other: Central coarse rhonchi are still noted no wheezing no rales Cardio: Rate: regular rate Rhythm: abnormal rhythm irregularly irregular Other: Soft systolic murmur audible at the left sternal border without radiation GI: Auscultation: normal bowel sounds Skin: General skin exam: normal color Neuro: Other: Arousable, oriented to self Extrem: Other: Adequate perfusion, changes of chronic venous insufficiency noted Objective Data Vital Signs Vital Signs: Vital Signs - 24 hr 04/11/25 11:50 04/11/25 14:00 04/11/25 15:35 Temperature 36.8 C Pulse Rate 58 L 51 L Respiratory Rate 16 18 Blood Pressure 140/51 L Pulse Oximetry 97 Oxygen Delivery Room Air Fraction of Inspired Oxygen 04/11/25 15:43 04/11/25 19:54 04/11/25 20:00 Temperature 36.5 C Pulse Rate 52 L 52 L Respiratory Rate 18 16 Blood Pressure 153/53 H Pulse Oximetry 94 Oxygen Delivery Room Air Fraction of Inspired Oxygen 04/11/25 20:27 04/11/25 20:27 04/11/25 20:36 Temperature Pulse Rate 50 L 50 L 51 L Respiratory Rate 20 20 20 Blood Pressure Pulse Oximetry 95 Oxygen Delivery Room Air Fraction of Inspired Oxygen 21 04/12/25 01:12 04/12/25 01:23 04/12/25 05:04 Temperature 36.3 C L Pulse Rate 50 L 50 L 45 L Respiratory Rate 20 20 16 Blood Pressure 160/55 H Pulse Oximetry 93 Oxygen Delivery Fraction of Inspired Oxygen 04/12/25 07:41 04/12/25 07:43 04/12/25 07:46 Temperature Pulse Rate 46 L 48 L Respiratory Rate 16 16 Blood Pressure Pulse Oximetry 95 Oxygen Delivery Room Air Fraction of Inspired Oxygen 04/12/25 09:04 04/12/25 09:05 Temperature Pulse Rate 59 L Respiratory Rate Blood Pressure 122/68 Pulse Oximetry 95 96 Oxygen Delivery Room Air Fraction of Inspired Oxygen Intake/Output Intake/Output: Intake & Output 04/09/25 04/10/25 04/11/25 04/12/25 23:59 23:59 23:59 23:59 Intake Total 2118 1980 2190 690 Output Total 8803 047 3447 Balance 718 1380 690 690 Meds/Results Medications: Active Medications Generic Name Dose Route Start Last Admin Trade Name Freq PRN Reason Stop Dose Admin Acetaminophen 650 mg 04/07/25 08:29 04/09/25 14:10 Acetaminophen 325 Mg Tablet PO 650 mg Q4H PRN Administration Mild Pain (1-3) or Fever Albuterol/Ipratropium 3 ml 04/09/25 14:00 04/12/25 07:41 Ipratropium 0.5 Mg/Albuterol Sulfate 2.5 Mg (Base) Ampul.Neb 3 Ml INHALATION 3 ml Q6HRT WHITLEY Administration Furosemide 40 mg 04/08/25 09:00 04/12/25 09:05 Furosemide Inj 40 Mg/4 Ml Vial IV PUSH 40 mg DAILY WHITLEY Administration Guaifenesin/Dextromethorphan 10 ml 04/09/25 11:29 Guaifenesin/Dextromethorphan 10 Ml Udc PO Q4H PRN Cough Hydralazine HCl 10 mg 04/07/25 16:12 04/07/25 16:22 Hydralazine Hcl 20 Mg/Ml Vial IV PUSH 10 mg Q4H PRN Administration Blood Pressure systolic>160 Azithromycin 500 mg/ Sodium 250 mls @ 250 mls/hr 04/07/25 14:00 04/11/25 15:52 Chloride IVPB Infused Q24H WHITLEY Infusion Linezolid 600 mg in 300 mls @ 300 mls/hr 04/09/25 11:35 04/12/25 09:05 Zyvox IVPB 04/14/25 11:34 300 mls/hr Q12HR WHITLEY Administration Piperacillin Sod/Tazobactam 100 mls @ 200 mls/hr 04/11/25 13:15 04/12/25 06:14 Sod 4.5 gm/ Sodium Chloride IVPB Infused Q6HR WHITLEY Infusion Ondansetron HCl 4 mg 04/07/25 08:29 Ondansetron Inj 4 Mg/2 Ml Vial IV PUSH Q4H PRN Nausea Spironolactone 25 mg 04/10/25 15:35 04/12/25 09:05 Spironolactone 25 Mg Tablet PO 25 mg QAM WHITLEY Administration Radiology Results: ITS Impressions Chest CTA 04/07/25 07:45 IMPRESSION: 1. No PE. 2. Large right pleural effusion. 3. Scattered foci of pneumonitis and/or airspace disease right lung. Chest X-Ray 04/11/25 13:48 Impression: 1: Extensive right-sided pneumonia. Labs Labs: Laboratory Results - last 24 hr 04/11/25 04/11/25 04/12/25 12:03 12:51 04:52 WBC 6.4 RBC 3.74 L Hgb 11.9 L Hct 35.7 L MCV 95.5 MCH 31.8 MCHC 33.3 RDW 14.0 Plt Count 147 L MPV 12.9 H Immature Gran % (Auto) 0.5 Neut % (Auto) 73.4 H Lymph % (Auto) 19.8 [place] % (Auto) 4.7 Eos % (Auto) 1.3 Baso % (Auto) 0.3 Lymph # (Auto) 1.26 [place] # (Auto) 0.3 Eos # (Auto) 0.1 Baso # (Auto) 0.0 Abs Immat Gran (auto) 0.03 Absolute Neuts (auto) 4.7 Absolute Nucleated RBC 0.000 Nucleated RBC % 0.0 Sodium Potassium Chloride Carbon Dioxide Anion Gap BUN Creatinine Estim Creat Clear Calc Estimated GFR Glucose Calcium Magnesium Total Bilirubin AST ALT Alkaline Phosphatase C-Reactive Protein 13.6 H Total Protein Albumin Procalcitonin 0.1 Nasal MRSA (PCR) Not detected 04/12/25 07:22 WBC RBC Hgb Hct MCV MCH MCHC RDW Plt Count MPV Immature Gran % (Auto) Neut % (Auto) Lymph % (Auto) [place] % (Auto) Eos % (Auto) Baso % (Auto) Lymph # (Auto) [place] # (Auto) Eos # (Auto) Baso # (Auto) Abs Immat Gran (auto) Absolute Neuts (auto) Absolute Nucleated RBC Nucleated RBC % Sodium 136 L Potassium 3.7 Chloride 98 Carbon Dioxide 32 H Anion Gap 6 BUN 15 Creatinine 0.84 Estim Creat Clear Calc 50 Estimated GFR > 60 Glucose 105 Calcium 8.4 Magnesium 1.9 Total Bilirubin 1.2 AST 43 H ALT 21 Alkaline Phosphatase 61 C-Reactive Protein Total Protein 7.4 Albumin 3.3 L Procalcitonin Nasal MRSA (PCR)
--- NOTE | 2025-04-12 11:14 | P.PNIM_ITS ---
Assessment and Plan Assessment and Plan (1) Hypoxia: Code(s): R09.02 - Hypoxemia Status: Acute Plan 84-year-old female past medical history of DVT, benign lung tumor presented to the ER on account of fever and cough. Reported symptoms has been going on for the past 5 days and worsening. It generalized weakness and poor appetite. No oxygen at baseline and now requiring 4 L. Chest pain, no diarrhea focal symptoms. Emergency room evaluation notable for blood pressure 161/53, pulse 44, respiratory rate 19 saturating 96% on 4 L oxygen. Labs notable elevated troponin. CT chest showed moderately large right-sided pleural effusion with opacities. Unchanged pleural-based nodular consolidative focus right lateral base; no change for 4 years strongly suggests benign. A few scattered granulomata unchanged. Bibasilar scarring. Started on Rocephin and azithromycin. She is alert, poor historian, with circular reasoning. Reports cough and congestion. c/o leg swelling. Acute hypoxemic respiratory failure Likely pneumonia related and also noted to have right large pleural effusion suspected to be parapneumonic effusion. Other possibility being congestive heart failure. Patient has refused thoracentesis to perform pleural fluid analysis. Initially On 4 liters, baseline on room air Weaned off oxygen 04/11/2025 --continue nebulizer treatments Treatment of pneumonia as delineated below Also on diuresis as ordered Elevated troponin with flat trend Pneumonia Large right pleural effusion CT Chest showed large pleural effusion with opacities thoracentesis ordered with fluid studies but patient refusing. Hold Xarelto for now. Resume if improves. Repeat chest x-ray with small bilateral pleural effusion noted Patient started on Zosyn and Azithromycin, add linezolid x5 days Will check MRSA nares and get respiratory culture and get procalcitonin Blood culture no growth to date Started on mucinex--change to liquid consult pulmonology and will await their recommendations Will repeat chest x-ray today Right lower lobe lung nodule no change compared to CT from 2020 strongly suggestive of benign etiology. Difficulty swallowing/dysphagia Refusing pills. Also refusing crushed/liquid meds for taste reasons. --Speech consulted for bedside swallow Leg edema she is on 20 mg lasix at home received IV lasix in ed she had 3+ edema, continue IV lasix 40 mg daily IV for now Will continue same. Transition to oral added K supplements as well, patient refuses to take them, monitor labs and supplement with IV as needed for now cardiology following Echo: EF 65-70% indeterminate diastolic function no significant valvular abnormality. History of DVT DVT prophylaxis on Sq Lovenox- stopped 04/08 as home med-xarelto restarted. 04/12/2025 Will continue with IV antibiotics. Repeat chest x-ray in the morning. Continue current treatment for now. Goals of care DNR/DNI Not interested in hospice Family also at bedside SDM: Ana Painter, Daughter Subjective Date/time seen: 04/12/25 11:14 Interval history: Follow-up visit in this 84-year-old lady with Past history of deep vein thrombosis, IVC filter who takes Xarelto at home presents with fever and cough. Temperature on admission 39.3 centigrade Patient was seen during the morning rounds today. Mild shortness of breath. No chest pain. No abdominal Pain, nausea, no vomiting. Review of Systems Review of Systems: All other systems reviewed and negative except as noted in the history above. Exam Narrative: General - Awake and alert. No acute distress Eyes - PERRLA, EOM intact ENT - No thrush, No erythema Neck - No noticeable or palpable swelling Lymph Nodes - No lymphadenopathy Cardiovascular - RRR no m/r/g, no JVD Lungs: crackles and wheezes LLL, diminished breath sounds bilaterally in bases Skin - Skin warm and dry, no wounds or rashes Abdomen - Normal bowel sounds, abdomen soft and nontender Extremities - Lower extremities 1+ edema improving, non-pitting, mild erythema and TTP, no cyanosis or clubbing Musculoskeletal - 3/5 strength, normal range of motion, no swollen or erythematous joints. Neurological ? Alert and oriented, CN 2-12 grossly intact. Psych: Normal mood and affect Objective Data Vital Signs Vital Signs: Vital Signs - 24 hr 04/11/25 11:50 04/11/25 14:00 04/11/25 15:35 Temperature 36.8 C Pulse Rate 58 L 51 L Respiratory Rate 16 18 Blood Pressure 140/51 L Pulse Oximetry 97 Oxygen Delivery Room Air Fraction of Inspired Oxygen 04/11/25 15:43 04/11/25 19:54 04/11/25 20:00 Temperature 36.5 C Pulse Rate 52 L 52 L Respiratory Rate 18 16 Blood Pressure 153/53 H Pulse Oximetry 94 Oxygen Delivery Room Air Fraction of Inspired Oxygen 04/11/25 20:27 04/11/25 20:27 04/11/25 20:36 Temperature Pulse Rate 50 L 50 L 51 L Respiratory Rate 20 20 20 Blood Pressure Pulse Oximetry 95 Oxygen Delivery Room Air Fraction of Inspired Oxygen 21 04/12/25 01:12 04/12/25 01:23 04/12/25 05:04 Temperature 36.3 C L Pulse Rate 50 L 50 L 45 L Respiratory Rate 20 20 16 Blood Pressure 160/55 H Pulse Oximetry 93 Oxygen Delivery Fraction of Inspired Oxygen 04/12/25 07:41 04/12/25 07:43 04/12/25 07:46 Temperature Pulse Rate 46 L 48 L Respiratory Rate 16 16 Blood Pressure Pulse Oximetry 95 Oxygen Delivery Room Air Fraction of Inspired Oxygen 04/12/25 09:04 04/12/25 09:05 Temperature Pulse Rate 59 L Respiratory Rate Blood Pressure 122/68 Pulse Oximetry 95 96 Oxygen Delivery Room Air Fraction of Inspired Oxygen Intake/Output Intake/Output: Intake & Output 04/09/25 04/10/25 04/11/25 04/12/25 23:59 23:59 23:59 23:59 Intake Total 2118 1980 2190 690 Output Total 6389 246 2963 Balance 718 1380 690 690 Meds/Results Medications: Active Medications Generic Name Dose Route Start Last Admin Trade Name Freq PRN Reason Stop Dose Admin Acetaminophen 650 mg 04/07/25 08:29 04/09/25 14:10 Acetaminophen 325 Mg Tablet PO 650 mg Q4H PRN Administration Mild Pain (1-3) or Fever Albuterol/Ipratropium 3 ml 04/09/25 14:00 04/12/25 07:41 Ipratropium 0.5 Mg/Albuterol Sulfate 2.5 Mg (Base) Ampul.Neb 3 Ml INHALATION 3 ml Q6HRT WHITLEY Administration Enoxaparin Sodium 40 mg 04/13/25 09:00 Enoxaparin 40 Mg/0.4 Ml Syringe SUB-Q DAILY WHITLEY Furosemide 40 mg 04/08/25 09:00 04/12/25 09:05 Furosemide Inj 40 Mg/4 Ml Vial IV PUSH 40 mg DAILY WHITLEY Administration Furosemide 40 mg 04/12/25 17:01 Furosemide Inj 40 Mg/4 Ml Vial IV PUSH 04/12/25 17:02 ONCE ONE Guaifenesin/Dextromethorphan 10 ml 04/09/25 11:29 Guaifenesin/Dextromethorphan 10 Ml Udc PO Q4H PRN Cough Hydralazine HCl 10 mg 04/07/25 16:12 04/07/25 16:22 Hydralazine Hcl 20 Mg/Ml Vial IV PUSH 10 mg Q4H PRN Administration Blood Pressure systolic>160 Azithromycin 500 mg/ Sodium 250 mls @ 250 mls/hr 04/07/25 14:00 04/11/25 15:52 Chloride IVPB Infused Q24H WHITLEY Infusion Linezolid 600 mg in 300 mls @ 300 mls/hr 04/09/25 11:35 04/12/25 09:05 Zyvox IVPB 04/14/25 11:34 300 mls/hr Q12HR WHITLEY Administration Piperacillin Sod/Tazobactam 100 mls @ 200 mls/hr 04/11/25 13:15 04/12/25 06:14 Sod 4.5 gm/ Sodium Chloride IVPB Infused Q6HR WHITLEY Infusion Ondansetron HCl 4 mg 04/07/25 08:29 Ondansetron Inj 4 Mg/2 Ml Vial IV PUSH Q4H PRN Nausea Spironolactone 25 mg 04/10/25 15:35 04/12/25 09:05 Spironolactone 25 Mg Tablet PO 25 mg QAM WHITLEY Administration Radiology Results: ITS Impressions Chest CTA 04/07/25 07:45 IMPRESSION: 1. No PE. 2. Large right pleural effusion. 3. Scattered foci of pneumonitis and/or airspace disease right lung. Chest X-Ray 04/11/25 13:48 Impression: 1: Extensive right-sided pneumonia. Labs Labs: Laboratory Results - last 24 hr 04/11/25 04/11/25 04/12/25 12:03 12:51 04:52 WBC 6.4 RBC 3.74 L Hgb 11.9 L Hct 35.7 L MCV 95.5 MCH 31.8 MCHC 33.3 RDW 14.0 Plt Count 147 L MPV 12.9 H Immature Gran % (Auto) 0.5 Neut % (Auto) 73.4 H Lymph % (Auto) 19.8 [place] % (Auto) 4.7 Eos % (Auto) 1.3 Baso % (Auto) 0.3 Lymph # (Auto) 1.26 [place] # (Auto) 0.3 Eos # (Auto) 0.1 Baso # (Auto) 0.0 Abs Immat Gran (auto) 0.03 Absolute Neuts (auto) 4.7 Absolute Nucleated RBC 0.000 Nucleated RBC % 0.0 Sodium Potassium Chloride Carbon Dioxide Anion Gap BUN Creatinine Estim Creat Clear Calc Estimated GFR Glucose Calcium Magnesium Total Bilirubin AST ALT Alkaline Phosphatase C-Reactive Protein 13.6 H Total Protein Albumin Procalcitonin 0.1 Nasal MRSA (PCR) Not detected 04/12/25 07:22 WBC RBC Hgb Hct MCV MCH MCHC RDW Plt Count MPV Immature Gran % (Auto) Neut % (Auto) Lymph % (Auto) [place] % (Auto) Eos % (Auto) Baso % (Auto) Lymph # (Auto) [place] # (Auto) Eos # (Auto) Baso # (Auto) Abs Immat Gran (auto) Absolute Neuts (auto) Absolute Nucleated RBC Nucleated RBC % Sodium 136 L Potassium 3.7 Chloride 98 Carbon Dioxide 32 H Anion Gap 6 BUN 15 Creatinine 0.84 Estim Creat Clear Calc 50 Estimated GFR > 60 Glucose 105 Calcium 8.4 Magnesium 1.9 Total Bilirubin 1.2 AST 43 H ALT 21 Alkaline Phosphatase 61 C-Reactive Protein Total Protein 7.4 Albumin 3.3 L Procalcitonin Nasal MRSA (PCR) Quality VTE Prophylaxis VTE prophylaxis: pharmacologic ordered
[2025-04-12] MEDS: AZITHROMYCIN IV 500 MG in SODIUM CHLORIDE 0.9% IV 250 ML IVPB (13:54)
--- NOTE | 2025-04-12 16:21 | PM.CNPUL ---
History of Present Illness History of Present Illness Consult date: 04/12/25 Requesting physician: Caitie Escobar APRN Chief complaint: New hypoxia, Pleural effusion, NSTEMI, Heart failu Narrative: As I was going to see the patient, Rapid Response was called. She had become unresponsive, daughter and granddaughter at bedside. She with family present. Nursing staff confirmed that she was . [facility] Past Medical History Medical History Chronic anticoagulation Pulmonary embolism Lung mass Brain tumor First degree AV block DVT (deep venous thrombosis) Surgical History Surgical History History of surgery on lower extremity filter Family History Family History (Updated 04/07/25 @ 11:27 by Christie Corbin RN) Mother Heart attack Father Heart attack Sibling Pacemaker Social History Social History (Updated 04/07/25 @ 18:20 by Patricia Hirsch MD) Smoking status: Never smoker Second hand tobacco smoke exposure: Yes Alcohol intake: former Substance use: never Substance use type: does not use Other substance usage details: DRANK A HALF CAN OF CARO AT NIGHT BUT DOES NOT ANYMORE Last use: Lack of Transportation: No Lack of Food: Never True Current Housing: I Have Housing Concerned About Future Housing: No Difficulty Paying Gas/Electric Bills: No Difficulty Paying for Meds: No Currently Unemployed: No Education: Bachelor's Degree Difficulty w/ Childcare or Family Care: No Living arrangements: with family Additional living arrangements comments: daughter Gender identity (if verbalized by the patient): Female Spiritual care concerns: No Meds Home Medications and Allergies Home Medications ?Medication ?Instructions ?Recorded ?Confirmed ?Type furosemide 20 mg tablet 20 mg PO DAILY 04/07/25 04/07/25 History rivaroxaban 20 mg tablet (Xarelto) 20 mg PO QPM 04/07/25 04/07/25 History Allergies Allergy/AdvReac Type Severity Reaction Status Date / Time poison urban extract Allergy Mild ITCH Verified 04/07/25 11:22 Vital Signs Vital Signs - 24 hr 04/11/25 19:54 04/11/25 20:00 04/11/25 20:27 Temperature 36.5 C Pulse Rate 52 L 50 L Respiratory Rate 16 20 Blood Pressure 153/53 H Pulse Oximetry 94 Oxygen Delivery Room Air Fraction of Inspired Oxygen 04/11/25 20:27 04/11/25 20:36 04/12/25 01:12 Temperature Pulse Rate 50 L 51 L 50 L Respiratory Rate 20 20 20 Blood Pressure Pulse Oximetry 95 Oxygen Delivery Room Air Fraction of Inspired Oxygen 21 04/12/25 01:23 04/12/25 05:04 04/12/25 07:41 Temperature 36.3 C L Pulse Rate 50 L 45 L 46 L Respiratory Rate 20 16 16 Blood Pressure 160/55 H Pulse Oximetry 93 Oxygen Delivery Fraction of Inspired Oxygen 04/12/25 07:43 04/12/25 07:46 04/12/25 09:04 Temperature Pulse Rate 48 L 59 L Respiratory Rate 16 Blood Pressure 122/68 Pulse Oximetry 95 95 Oxygen Delivery Room Air Fraction of Inspired Oxygen 04/12/25 09:05 04/12/25 13:16 04/12/25 13:56 Temperature 36.4 C Pulse Rate 50 L 60 Respiratory Rate 12 16 Blood Pressure 134/58 L Pulse Oximetry 96 96 Oxygen Delivery Room Air Fraction of Inspired Oxygen 04/12/25 14:00 Temperature Pulse Rate 60 Respiratory Rate 16 Blood Pressure Pulse Oximetry Oxygen Delivery Fraction of Inspired Oxygen Results Laboratory Findings 04/12/25 04:52 04/12/25 07:22 ABG, PT/INR, D-dimer: PT/INR, D-dimer D-Dimer 1.63 ug/mL (<0.48) H 04/07/25 05:30 Abnormal lab findings: Abnormal Labs 04/07/25 04/07/25 04/08/25 05:30 08:11 03:51 RBC 4.06 L 3.88 L Hgb Hct RDW 14.6 H Plt Count 140 L 121 L MPV 12.5 H 13.5 H Neut % (Auto) 87.0 H 81.0 H Lymph % (Auto) 8.3 L 13.7 L Baso % (Auto) 0.1 L Lymph # (Auto) 0.56 L 0.78 L Absolute Neuts (auto) % Immature Plt Fraction 11.3 H D-Dimer 1.63 H Sodium 133 L 136 L Carbon Dioxide 21 L BUN 26 H 26 H Creatinine 1.10 H Estimated GFR 47 L Glucose 117 H 115 H Calcium 8.3 L AST 42 H 44 H Troponin I 0.306 H* 0.333 H* C-Reactive Protein NT-Pro-B Natriuret Pep 3160 H Albumin 3.4 L 04/10/25 04/11/25 04/12/25 15:00 12:51 04:52 RBC 4.13 L 3.74 L Hgb 11.9 L Hct 35.7 L RDW Plt Count 117 L 147 L MPV 12.1 H 12.9 H Neut % (Auto) 86.2 H 73.4 H Lymph % (Auto) 10.2 L Baso % (Auto) 0.1 L Lymph # (Auto) 0.84 L Absolute Neuts (auto) 7.1 H % Immature Plt Fraction D-Dimer Sodium 134 L Carbon Dioxide BUN Creatinine Estimated GFR Glucose 122 H Calcium 8.2 L AST 52 H Troponin I C-Reactive Protein 13.6 H NT-Pro-B Natriuret Pep Albumin 04/12/25 07:22 RBC Hgb Hct RDW Plt Count MPV Neut % (Auto) Lymph % (Auto) Baso % (Auto) Lymph # (Auto) Absolute Neuts (auto) % Immature Plt Fraction D-Dimer Sodium 136 L Carbon Dioxide 32 H BUN Creatinine Estimated GFR Glucose Calcium AST 43 H Troponin I C-Reactive Protein NT-Pro-B Natriuret Pep Albumin 3.3 L
--- NOTE | 2025-04-12 17:46 | ECG_ITS ---
Test Date: 2025-04-12 18:04:16 Measurements Intervals Waucoma Rate: 44 P: 0 DE: 0 QRS: -3 QRSD: 101 T: 29 QT: 501 QTc: 433 Interpretive Statements ATRIAL FIBRILLATION WITH SLOW VENTRICULAR RESPONSE ST ELEVATION IN DIFFUSE LEADS- PROBABLY EARLY REPOLARIZATION CONSIDER ANTERIOR INFARCT, AGE INDETERMINATE BASELINE ARTIFACT- I, II, III, AVR, AVL, AVF, V1-V3 ABNORMAL ECG Compared to ECG 04/07/2025 08:12:52 NO SIGNIFICANT CHANGE Electronically Signed On 04-12-2025 21:07:49 [employer] by Ernie Stoll D.O.
[2025-04-12] MEDS: RIVAROXABAN 20 MG TABLET PO (18:10)
--- NOTE | 2025-04-12 18:15 | PC.NURSE ---
Dr. Jordan to floor to see patient, EKG handed to patient MD assessed patient NNO
[2025-04-12] MEDS: ACETAMINOPHEN 325 MG TABLET 650 MG PO (18:22)
--- NOTE | 2025-04-12 19:07 | PC.NURSE ---
Patient daughter in room, called because mom was turning purple not acting right. [employer]mbrella Supervisor entered room patient clearly hypoxic with apnenic breathing, Rapid respond called, Family at bedside verfied wished to honor DNR status, family does confirm DNR. Patient observed to have no vital signs of life.
--- NOTE | 2025-04-13 09:11 | P.DN_ITS ---
Discharge Summary Date and Time Date of : 04/12/25 Time of : 18:51 Provider Pronounced By: 2 RNs Name of First RN That Pronounced: Halie Cochran Name of Second RN That Pronounced: Althea Mcclendon Probable Cause of Probable Cause of : Pneumonia, coronary artery disease Summary Hospital Course: 84 years old female was admitted complained of any shortness of breath. Patient was found to have mild pleural feeling pneumonia. Patient was given IV antibiotics. Patient also has coronary disease. Patient on 04/12/2025. Family bedside. Additional Data Confirmation of as documented by pronouncing clinician: Pupillary Reflex, Palpable Pulses, Response to Stimuli, Heart Tones and Breath Sounds Name of Provider Notified: Dr. Jeremy Jordan Time Provider Notified: 18:51 Provider Requests Autopsy: No Family Requests Autopsy: No [employer] Supervisor Notified: Yes Date [facility] Notified of : 04/12/25 Time [facility] Notified of : 19:02
== END 2025-04-12 19:40 | disposition expired | DRG 193 ==
LOC: ANHED 08:29 → ANHIMU 09:30 → ANH2MED 04-09 18:05
PROVIDERS: Internal Medicine; Nurse Practitioner Adult Health; Admitting Provider Internal Medicine; Emergency Provider Student in an Organized Health Care Education/Training Program; PCP Student in an Organized Health Care Education/Training Program; Visit Provider Internal Medicine
DX: J18.9 Pneumonia, unspecified organism (principal); I50.33 Acute on chronic diastolic (congestive) heart failure; J96.01 Acute respiratory failure with hypoxia; J90 Pleural effusion, not elsewhere classified; I48.20 Chronic atrial fibrillation, unspecified; I25.10 Atherosclerotic heart disease of native coronary artery without angina pectoris; R13.10 Dysphagia, unspecified; Z86.718 Personal history of other venous thrombosis and embolism; Z66 Do not resuscitate
CPT/HCPCS: 0202U; 36415; 71045; 71046; 71275; 80053; 82948; 83735; 83880; 84145; 84484; 85025; 85055; 85380; 86140; 87040; 87493; 87637; 87641; 92610; 93005; 94640; 96365; 96372; 96375; 97110; 97116; 97162; 97166; 97530; 97535; 99285; A9270; C8929; G0378; J0360; J0456; J0696; J1650; J1938; J2020; J2543; J3480; J7040; J7050; Q9957; Q9967